=== PATIENT | female | born 1940 | race Caucasian/White ===

== ENCOUNTER 2021-03-22 12:55 | Inpatient (IN) | payer MEDICARE, BC ==
[2021-03-22] MEDS ORDERED: Dexamethasone 10 MG/ML SDV IVPUSH ONE (13:13)
--- NOTE | 2021-03-22 13:13 | EDM.PDOC ---
ED HPI GENERAL MEDICAL PROBLEM - General Chief Complaint: Respiratory Problem Stated Complaint: EMS Time Seen by Provider: 03/22/21 13:00 Source of Information: Reports: Patient History Limitations: Reports: No Limitations - History of Present Illness INITIAL COMMENTS - FREE TEXT/NARRATIVE: Patient is a 81-year-old female history of high blood pressure diabetes and COPD who was diagnosed with Covid about 10 days ago presents today for worsening shortness of breath. With EMS to states she was satting about 74% they placed on a nonrebreather and she is now satting about 97%. Patient she feels better now with oxygen on. She reported before she had a productive white cough body aches but no fevers no chills no nausea vomiting or abdominal pain. - Related Data Allergies Allergy/AdvReac Type Severity Reaction Status Date / Time No Known Allergies Allergy Verified 03/22/21 12:57 Home Meds: Home Meds Insulin Glarg,Human.Rec.Analog [Lantus Solostar] 14 units SQ BEDTIME 11/22/17 [History] Levothyroxine Sodium [Synthroid] 112 mcg PO DAILY 11/22/17 [History] Past Medical History HEENT History: Reports: Hard of Hearing, Impaired Vision Cardiovascular History: Reports: High Cholesterol, Hypertension, Pacemaker Respiratory History: Reports: Sleep Apnea Other Respiratory History: Uses C-PAP Gastrointestinal History: Reports: None Genitourinary History: Reports: None SECURITY TRAINER History: Reports: , Other (See Below) Other SECURITY TRAINER History: Bilateral ovary and fallopian tube removed Musculoskeletal History: Reports: Other (See Below) 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 Neurological History: Reports: None Psychiatric History: Reports: None Endocrine/Metabolic History: Reports: Diabetes, Type II, Hypothyroidism, Other (See Below) Other Endocrine/Metabolic History: Graves Disease Hematologic History: Reports: None Oncologic (Cancer) History: Reports: Ovarian, Other (See Below) Other Oncologic History: Mass removed ovary - Infectious Disease History Infectious Disease History: Reports: None - Past Surgical History Head Surgeries/Procedures: Reports: None GI Surgical History: Reports: Hernia Repair/Other Other GI Surgeries/Procedures: In June, Female Surgical History: Reports: Hysterectomy, Oophorectomy Endocrine Surgical History: Reports: Thyroidectomy Other Endocrine Surgeries/Procedures: Radioactive iodine treatment destroyed the thyroid gland. Oncologic Surgical History: Reports: None Social & Family History - Family History Family Medical History: Unobtainable - Caffeine Use Caffeine Use: Reports: Coffee ED ROS GENERAL - Review of Systems Review Of Systems: See Below Constitutional: Reports: No Symptoms HEENT: Reports: No Symptoms Respiratory: Reports: Shortness of Breath Cardiovascular: Reports: No Symptoms Endocrine: Reports: No Symptoms GI/Abdominal: Reports: No Symptoms : Reports: No Symptoms Musculoskeletal: Reports: No Symptoms Skin: Reports: No Symptoms Neurological: Reports: No Symptoms Psychiatric: Reports: No Symptoms Hematologic/Lymphatic: Reports: No Symptoms Immunologic: Reports: No Symptoms ED EXAM, GENERAL - Physical Exam Exam: See Below Exam Limited By: No Limitations General Appearance: Alert, WD/WN, No Apparent Distress Eye Exam: Bilateral Eye: EOMI Throat/Mouth: Normal Inspection Head: Atraumatic, Normocephalic Neck: Normal Inspection, Supple Respiratory/Chest: No Respiratory Distress, Lungs Clear, Normal Breath Sounds Cardiovascular: Normal Peripheral Pulses, Regular Rate, Rhythm GI/Abdominal: Normal Bowel Sounds, Soft, Non-Tender Extremities: Normal Inspection, Normal Range of Motion Neurological: Alert, Oriented, Normal Cognition, Normal Gait Course - Vital Signs Last Recorded V/S: Last Vital Signs Temp 98.1 F 03/22/21 13:01 Pulse 72 03/22/21 13:01 Resp 20 03/22/21 13:01 BP 167/76 H 03/22/21 13:01 Pulse Ox 99 03/22/21 13:01 - Orders/Labs/Meds Orders: Active Orders 24 hr Category Date Time Status Patient Status [ADT] Routine ADT 03/22/21 14:34 Ordered B-TYPE NATRIURETIC PEPTIDE,BNP [CHEM] Stat Lab 03/22/21 13:32 Received Labs: Laboratory Tests 03/22/21 03/22/21 03/22/21 Range/Units 13:25 13:32 13:32 WBC 11.78 H (4.0-11.0) K/uL RBC 4.38 (4.30-5.90) M/uL Hgb 12.8 (12.0-16.0) g/dL Hct 38.0 (36.0-46.0) % MCV 86.8 (80.0-98.0) fL MCH 29.2 (27.0-32.0) pg MCHC 33.7 (31.0-37.0) g/dL RDW Std Deviation 43.8 (28.0-62.0) fl RDW Coeff of Andree 14 (11.0-15.0) % Plt Count 207 (150-400) K/uL MPV 10.00 (7.40-12.00) fL Neut % (Auto) 83.4 H (48.0-80.0) % Lymph % (Auto) 13.1 L (16.0-40.0) % [place] % (Auto) 3.0 (0.0-15.0) % Eos % (Auto) 0.4 (0.0-7.0) % Baso % (Auto) 0.1 (0.0-1.5) % Neut # (Auto) 9.8 H (1.4-5.7) K/uL Lymph # (Auto) 1.5 (0.6-2.4) K/uL [place] # (Auto) 0.4 (0.0-0.8) K/uL Eos # (Auto) 0.1 (0.0-0.7) K/uL Baso # (Auto) 0.0 (0.0-0.1) K/uL Nucleated RBC % 0.0 /100WBC Nucleated RBCs # 0 K/uL INR APTT (18.6-31.3) SEC Sodium 134 L (136-145) mmol/L Potassium 4.2 (3.5-5.1) mmol/L Chloride 99 (98-107) mmol/L Carbon Dioxide 25.4 (21.0-32.0) mmol/L BUN 21 H (7.0-18.0) mg/dL Creatinine 1.2 H (0.6-1.0) mg/dL Est Cr Clr Drug Dosing 30.03 mL/min Estimated GFR (MDRD) 42.9 ml/min Glucose 259 H (74-106) mg/dL Calcium 8.8 (8.5-10.1) mg/dL Phosphorus 3.2 (2.6-4.7) mg/dL Magnesium 1.8 (1.8-2.4) mg/dL Total Bilirubin 0.4 (0.2-1.0) mg/dL AST 30 (15-37) IU/L ALT 22 (14-63) IU/L Alkaline Phosphatase 112 (46-116) U/L Creatine Kinase 50 (26-308) U/L Troponin I < 0.050 (0.000-0.056) ng/mL Total Protein 7.8 (6.4-8.2) g/dL Albumin 2.5 L (3.4-5.0) g/dL Globulin 5.3 H (2.6-4.0) g/dL Albumin/Globulin Ratio 0.5 L (0.9-1.6) SARS-CoV-2 RNA (DIXON) POSITIVE H (NEGATIVE) 03/22/21 Range/Units 13:32 WBC (4.0-11.0) K/uL RBC (4.30-5.90) M/uL Hgb (12.0-16.0) g/dL Hct (36.0-46.0) % MCV (80.0-98.0) fL MCH (27.0-32.0) pg MCHC (31.0-37.0) g/dL RDW Std Deviation (28.0-62.0) fl RDW Coeff of Andree (11.0-15.0) % Plt Count (150-400) K/uL MPV (7.40-12.00) fL Neut % (Auto) (48.0-80.0) % Lymph % (Auto) (16.0-40.0) % [place] % (Auto) (0.0-15.0) % Eos % (Auto) (0.0-7.0) % Baso % (Auto) (0.0-1.5) % Neut # (Auto) (1.4-5.7) K/uL Lymph # (Auto) (0.6-2.4) K/uL [place] # (Auto) (0.0-0.8) K/uL Eos # (Auto) (0.0-0.7) K/uL Baso # (Auto) (0.0-0.1) K/uL Nucleated RBC % /100WBC Nucleated RBCs # K/uL INR 0.99 APTT 22.9 (18.6-31.3) SEC Sodium (136-145) mmol/L Potassium (3.5-5.1) mmol/L Chloride (98-107) mmol/L Carbon Dioxide (21.0-32.0) mmol/L BUN (7.0-18.0) mg/dL Creatinine (0.6-1.0) mg/dL Est Cr Clr Drug Dosing mL/min Estimated GFR (MDRD) ml/min Glucose (74-106) mg/dL Calcium (8.5-10.1) mg/dL Phosphorus (2.6-4.7) mg/dL Magnesium (1.8-2.4) mg/dL Total Bilirubin (0.2-1.0) mg/dL AST (15-37) IU/L ALT (14-63) IU/L Alkaline Phosphatase (46-116) U/L Creatine Kinase (26-308) U/L Troponin I (0.000-0.056) ng/mL Total Protein (6.4-8.2) g/dL Albumin (3.4-5.0) g/dL Globulin (2.6-4.0) g/dL Albumin/Globulin Ratio (0.9-1.6) SARS-CoV-2 RNA (DIXON) (NEGATIVE) Meds: Medications Discontinued Medications Generic Name Dose Route Start Last Admin Trade Name Freq PRN Reason Stop Dose Admin Dexamethasone 10 mg 03/22/21 13:13 03/22/21 13:41 Dexamethasone 10 Mg/Ml Sdv IVPUSH 03/22/21 13:14 10 mg ONETIME ONE Administration Remdesivir 200 mg/ Sodium 250 mls @ 250 mls/hr 03/22/21 14:32 Chloride IV 03/22/21 14:33 ONETIME ONE - Re-Assessments/Exams Free Text/Narrative Re-Assessment/Exam: 03/22/21 14:35 Patient will be made to the hospital for hypoxia and possible Covid. Patient given Decadron also does appear. Departure - Departure Time of Disposition: 14:35 Disposition: Admitted As Inpatient 64 Condition: Good Clinical Impression: Hypoxia, COVID-19 - Discharge Information *PRESCRIPTION DRUG MONITORING PROGRAM REVIEWED*: Not Applicable *COPY OF PRESCRIPTION DRUG MONITORING REPORT IN PATIENT LUCI: Not Applicable Forms: ED Department Discharge Critical Care Note - Critical Care Note Total Time (mins): 45 Comments: Critical Care Procedure Note Authorized and Performed by: Dr. Mark Total critical care time: Approximately Due to a high probability of clinically significant, life threatening deterioration, the patient required my highest level of preparedness to intervene emergently and I personally spent this critical care time directly and personally managing the patient. This critical care time included obtaining a history; examining the patient; pulse oximetry; ordering and review of studies; arranging urgent treatment with development of a management plan; evaluation of patient's response to treatment; frequent reassessment; and, discussions with other providers. This critical care time was performed to assess and manage the high probability of imminent, life-threatening deterioration that could result in multi-organ failure. It was exclusive of separately billable procedures and treating other patients and teaching time. Sepsis Event Note (ED) - Focused Exam Vital Signs: Vital Signs Temp Pulse Resp BP Pulse Ox 03/22/21 13:01 98.1 F 72 20 167/76 H 99 - My Orders Last 24 Hours: My Active Orders 03/22/21 13:32 B-TYPE NATRIURETIC PEPTIDE,BNP [CHEM] Stat 03/22/21 14:34 Patient Status [ADT] Routine - Assessment/Plan Last 24 Hours: My Active Orders 03/22/21 13:32 B-TYPE NATRIURETIC PEPTIDE,BNP [CHEM] Stat 03/22/21 14:34 Patient Status [ADT] Routine Plan: Patient is a 81-year-old female history of COPD diabetes and high blood pressure who presented today for shortness of breath. Patient was hypoxic to the 70s on room air placed on a nonrebreather now satting in 90s. Patient was diagnosed with Covid. Will obtain labs EKG x-ray and will reassess patient.
--- NOTE | 2021-03-22 14:06 | CR ---
Indication: Cough, shortness of breath Comparison: Two-view chest April 22, 2018 Technique: Single AP view chest Findings: There is hyperinflation and chronic interstitial change. There are increasing interstitial, airspace and ground-glass opacities seen throughout the bilateral hemithoraces commensurate with multifocal infiltrates. The cardiac silhouette is mildly prominent. The bony thorax is grossly intact. Impression: Increasing interstitial, airspace and ground-glass opacities throughout the bilateral hemithoraces commensurate with multifocal infiltrates. Dictated by Chester Jade MD @ 03/22/2021 2:04:59 PM (Electronically Signed)
[2021-03-22 14:22] LABS: BLOOD UREA NITROGEN,BUN 21 mg/dL (7.0-18.0); CARBON DIOXIDE,CO2 25.4 mmol/L (21.0-32.0); CHLORIDE,CL 99 mmol/L (98-107); GLUCOSE RANDOM 259 mg/dL (74-106); POTASSIUM,K 4.2 mmol/L (3.5-5.1); SODIUM,NA 134 mmol/L (136-145)
[2021-03-22] MEDS ORDERED: REMDESIVIR 200 MG in Sodium Chloride 0.9% 250 ML IV ONE (14:32)
[2021-03-22] MEDS ORDERED: Acetaminophen 325 MG Tab PO PRN (14:58)
[2021-03-22] MEDS ORDERED: Glucagon,Human Recombinant 1 MG Vial IM PRN (14:59)
[2021-03-22] MEDS ORDERED: 50% Dextrose in Water 50 ML Syringe IVPUSH PRN (14:59)
[2021-03-22] MEDS ORDERED: Enoxaparin 40 MG/0.4 ML Syringe SUBCUT SCH (15:00)
--- NOTE | 2021-03-22 15:10 | PCM.HP.2 ---
H&P History of Present Illness - General Date of Service: 03/22/21 Admit Problem/Dx: Admission Diagnosis/Problem Admission Diagnosis/Problem Hypoxia - History of Present Illness Initial Comments - Free Text/Narative: 81 yo female with pmh of diabetes, COPD, and hypothyroidism who presents to the ED with one week history of shortness of breath, cough and fevers. She tested positive for COVID on March 11. Her shortness of breath has progressed to where she is short of breath at rest. She has a nonproductive cough. EMS noted she was satting 70% on RA and placed her on a NRB. IN the ED she has been tit rated down to nasal canula. - Related Data Allergies/Adverse Reactions: Allergies Allergy/AdvReac Type Severity Reaction Status Date / Time No Known Allergies Allergy Verified 03/22/21 12:57 Home Medications: Home Meds Insulin Glarg,Human.Rec.Analog [Lantus Solostar] 14 units SQ BEDTIME 11/22/17 [History] Levothyroxine Sodium [Synthroid] 112 mcg PO DAILY 11/22/17 [History] Past Medical History HEENT History: Reports: Hard of Hearing, Impaired Vision Cardiovascular History: Reports: CAD, High Cholesterol, Hypertension, Pacemaker Respiratory History: Reports: COPD, Sleep Apnea Other Respiratory History: Uses C-PAP Gastrointestinal History: Reports: None Genitourinary History: Reports: None SPECIAL EDUCATION ASSOCIATE History: Reports: , Other (See Below) Other OB/BYN History: Bilateral ovary and fallopian tube removed Musculoskeletal History: Reports: Other (See Below) 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 Neurological History: Reports: None Psychiatric History: Reports: None Endocrine/Metabolic History: Reports: Diabetes, Type II, Hypothyroidism, Other ( See Below) Other Endocrine/Metabolic History: Graves Disease Hematologic History: Reports: None Oncologic (Cancer) History: Reports: Ovarian, Other (See Below) Other Oncologic History: Mass removed ovary - Infectious Disease History Infectious Disease History: Reports: None - Past Surgical History Head Surgeries/Procedures: Reports: None GI Surgical History: Reports: Hernia Repair/Other Other GI Surgeries/Procedures: In June, Female Surgical History: Reports: Hysterectomy, Oophorectomy Endocrine Surgical History: Reports: Thyroidectomy Other Endocrine Surgeries/Procedures: Radioactive iodine treatment destroyed the thyroid gland. Oncologic Surgical History: Reports: None Social & Family History - Family History Family Medical History: Unobtainable - Tobacco Use Tobacco Use Status *Q: Never Tobacco User - Caffeine Use Caffeine Use: Reports: Coffee - Recreational Drug Use Recreational Drug Use: No H&P Review of Systems - Review of Systems: Review Of Systems: Comprehensive ROS is negative, except as noted in HPI. Exam - Exam Exam: See Below - Vital Signs Vital Signs: Last Vital Signs Temp 36.7 C 03/22/21 13:01 Pulse 72 03/22/21 13:01 Resp 20 03/22/21 13:01 BP 167/76 H 03/22/21 13:01 Pulse Ox 99 03/22/21 13:01 Weight: 74.843 kg - Exam General: Alert, Oriented HEENT: Mucosa Moist & [place] Neck: Supple Lungs: Clear to Auscultation, Normal Respiratory Effort Cardiovascular: Regular Rate, Regular Rhythm GI/Abdominal Exam: Normal Bowel Sounds, Soft, Non-Tender Extremities: Non-Tender, No Pedal Edema Skin: Warm, Dry, Intact Neurological: Cranial Nerves Intact - Patient Data Lab Results Last 24 hrs: Laboratory Results - last 24 hr 03/22/21 03/22/21 03/22/21 Range/Units 13:25 13:32 13:32 WBC 11.78 H (4.0-11.0) K/uL RBC 4.38 (4.30-5.90) M/uL Hgb 12.8 (12.0-16.0) g/dL Hct 38.0 (36.0-46.0) % MCV 86.8 (80.0-98.0) fL MCH 29.2 (27.0-32.0) pg MCHC 33.7 (31.0-37.0) g/dL RDW Std Deviation 43.8 (28.0-62.0) fl RDW Coeff of Andree 14 (11.0-15.0) % Plt Count 207 (150-400) K/uL MPV 10.00 (7.40-12.00) fL Neut % (Auto) 83.4 H (48.0-80.0) % Lymph % (Auto) 13.1 L (16.0-40.0) % [place] % (Auto) 3.0 (0.0-15.0) % Eos % (Auto) 0.4 (0.0-7.0) % Baso % (Auto) 0.1 (0.0-1.5) % Neut # (Auto) 9.8 H (1.4-5.7) K/uL Lymph # (Auto) 1.5 (0.6-2.4) K/uL [place] # (Auto) 0.4 (0.0-0.8) K/uL Eos # (Auto) 0.1 (0.0-0.7) K/uL Baso # (Auto) 0.0 (0.0-0.1) K/uL Nucleated RBC % 0.0 /100WBC Nucleated RBCs # 0 K/uL INR APTT (18.6-31.3) SEC Sodium 134 L (136-145) mmol/L Potassium 4.2 (3.5-5.1) mmol/L Chloride 99 (98-107) mmol/L Carbon Dioxide 25.4 (21.0-32.0) mmol/L BUN 21 H (7.0-18.0) mg/dL Creatinine 1.2 H (0.6-1.0) mg/dL Est Cr Clr Drug Dosing 30.03 mL/min Estimated GFR (MDRD) 42.9 ml/min Glucose 259 H (74-106) mg/dL Calcium 8.8 (8.5-10.1) mg/dL Phosphorus 3.2 (2.6-4.7) mg/dL Magnesium 1.8 (1.8-2.4) mg/dL Total Bilirubin 0.4 (0.2-1.0) mg/dL AST 30 (15-37) IU/L ALT 22 (14-63) IU/L Alkaline Phosphatase 112 (46-116) U/L Creatine Kinase 50 (26-308) U/L Troponin I < 0.050 (0.000-0.056) ng/mL Total Protein 7.8 (6.4-8.2) g/dL Albumin 2.5 L (3.4-5.0) g/dL Globulin 5.3 H (2.6-4.0) g/dL Albumin/Globulin Ratio 0.5 L (0.9-1.6) SARS-CoV-2 RNA (DIXON) POSITIVE H (NEGATIVE) 03/22/21 Range/Units 13:32 WBC (4.0-11.0) K/uL RBC (4.30-5.90) M/uL Hgb (12.0-16.0) g/dL Hct (36.0-46.0) % MCV (80.0-98.0) fL MCH (27.0-32.0) pg MCHC (31.0-37.0) g/dL RDW Std Deviation (28.0-62.0) fl RDW Coeff of Andree (11.0-15.0) % Plt Count (150-400) K/uL MPV (7.40-12.00) fL Neut % (Auto) (48.0-80.0) % Lymph % (Auto) (16.0-40.0) % [place] % (Auto) (0.0-15.0) % Eos % (Auto) (0.0-7.0) % Baso % (Auto) (0.0-1.5) % Neut # (Auto) (1.4-5.7) K/uL Lymph # (Auto) (0.6-2.4) K/uL Dyer # (Auto) (0.0-0.8) K/uL Eos # (Auto) (0.0-0.7) K/uL Baso # (Auto) (0.0-0.1) K/uL Nucleated RBC % /100WBC Nucleated RBCs # K/uL INR 0.99 APTT 22.9 (18.6-31.3) SEC Sodium (136-145) mmol/L Potassium (3.5-5.1) mmol/L Chloride (98-107) mmol/L Carbon Dioxide (21.0-32.0) mmol/L BUN (7.0-18.0) mg/dL Creatinine (0.6-1.0) mg/dL Est Cr Clr Drug Dosing mL/min Estimated GFR (MDRD) ml/min Glucose (74-106) mg/dL Calcium (8.5-10.1) mg/dL Phosphorus (2.6-4.7) mg/dL Magnesium (1.8-2.4) mg/dL Total Bilirubin (0.2-1.0) mg/dL AST (15-37) IU/L ALT (14-63) IU/L Alkaline Phosphatase (46-116) U/L Creatine Kinase (26-308) U/L Troponin I (0.000-0.056) ng/mL Total Protein (6.4-8.2) g/dL Albumin (3.4-5.0) g/dL Globulin (2.6-4.0) g/dL Albumin/Globulin Ratio (0.9-1.6) SARS-CoV-2 RNA (DIXON) (NEGATIVE) Result Diagrams: 03/22/21 13:32 03/22/21 13:32 Sepsis Event Note - Evaluation Sepsis Screening Result: No Definite Risk - Focused Exam Vital Signs: Vital Signs Temp Pulse Resp BP Pulse Ox 03/22/21 13:01 36.7 C 72 20 167/76 H 99 - Problem List (1) COVID-19 SNOMED Code(s): 552045659 ICD Code: U07.1 - COVID-19 Status: Acute (2) Hypoxia SNOMED Code(s): 679652101 ICD Code: R09.02 - HYPOXEMIA Status: Acute Problem List Initiated/Reviewed/Updated: Yes Orders Last 24hrs: Active Orders 24 hr Category Date Time Status Patient Status [ADT] Routine ADT 03/22/21 14:34 Active Blood Glucose Check, Bedside [RC] TIDAC Care 03/22/21 14:59 Ordered Oxygen Therapy [RC] PRN Care 03/22/21 14:59 Ordered Up ad Lena [RC] ASDIRECTED Care 03/22/21 14:58 Ordered VTE/DVT Education [RC] PER UNIT ROUTINE Care 03/22/21 14:59 Ordered Vital Signs [RC] Q4H Care 03/22/21 14:59 Ordered [place] [employer] Diet [DIET] Diet 03/22/21 Breakfast Ordered Chest PE [Ang Chest] [CT] Stat Exams 03/22/21 14:58 Ordered B-TYPE NATRIURETIC PEPTIDE,BNP [CHEM] Stat Lab 03/22/21 13:32 Received C-REACTIVE PROTEIN [CHEM] Stat Lab 03/22/21 15:04 Ordered CBC WITH AUTO DIFF [HEME] AM Lab 03/23/21 05:11 Ordered COMPREHENSIVE METABOLIC PN,CMP [CHEM] AM Lab 03/23/21 05:11 Ordered PROCALCITONIN [REF] Routine Lab 03/22/21 15:04 Ordered Acetaminophen [TylenoL] Med 03/22/21 14:58 Ordered 650 mg PO Q4H PRN Dextrose 50% in Water Med 03/22/21 14:59 Ordered 50 ml IVPUSH ASDIRECTED PRN Enoxaparin [Lovenox] Med 03/22/21 15:00 Ordered 40 mg SUBCUT Q24H Glucagon,Human Recombinant [GlucaGen] Med 03/22/21 14:59 Ordered 1 mg IM ASDIRECTED PRN Insulin Aspart [NovoLOG] Med 03/22/21 17:00 Ordered See Protocol SUBCUT TIDAC Insulin Glarg,Human.Rec.Analog [LantUS Solostar] Med 03/22/21 21:00 Ordered 6 units SUBCUT BEDTIME Levothyroxine Med 03/23/21 09:00 Ordered 112 mcg PO DAILY Remdesivir 100 mg Med 03/23/21 15:00 Ordered Sodium Chloride 0.9% [Normal Saline AdvBag] 100 ml IV Q24H dexAMETHasone Med 03/23/21 09:00 Ordered 6 mg PO DAILY Resuscitation Status Routine Resus Stat 03/22/21 14:58 Ordered Medication Orders Acetaminophen (Acetaminophen 325 Mg Tab) 650 mg PO Q4H PRN PRN Reason: Pain (Mild 1-3)/fever Dexamethasone (Dexamethasone 4 Mg Tab) 6 mg PO DAILY TEO Dextrose/Water (50% Dextrose In Water 50 Ml Syringe) 50 ml IVPUSH ASDIRECTED PRN PRN Reason: Hypoglycemia Enoxaparin Sodium (Enoxaparin 40 Mg/0.4 Ml Syringe) 40 mg SUBCUT Q24H TEO Glucagon (Glucagon,Human Recombinant 1 Mg Vial) 1 mg IM ASDIRECTED PRN PRN Reason: Hypoglycemia Remdesivir 100 mg/ Sodium (Chloride) 100 mls @ 100 mls/hr IV Q24H TEO Stop: 03/26/21 15:59 Insulin Aspart (Insulin Aspart 100 Units/Ml 3 Ml Pen) 0 unit SUBCUT TIDAC TEO; Protocol Insulin Glargine (Insulin Glargine,Human Rec. Analog 100 Units/Ml 3 Ml Pen) 6 units SUBCUT BEDTIME TEO Levothyroxine Sodium (Levothyroxine 112 Mcg Tab) 112 mcg PO DAILY TEO Assessment/Plan Comment:: 81 yo female admitted for COVID-19 pneumonia with acute respiratory failure hypoxia: on 4 L NC COVID: treating with dexamethasone, and remdesivir lovenox for DVT prophylaxis DM: on lantus and ssi
[2021-03-22] MEDS ORDERED: Azithromycin 500 MG Vial IV SCH (15:15)
--- NOTE | 2021-03-22 16:16 | CT ---
INDICATION: Hypoxic. COVID. Clinical signs symptoms suggesting pulmonary embolus. COMPARISON: No prior transaxial studies. A chest x-ray dated of 04/2020 was reviewed TECHNIQUE: : CT examination of the chest was performed with the uneventful intravenous administration of 100 cc of Isovue 370 while thin axial sections were obtained from above the apices of the lungs to the lung bases. Please note that all CT scans at this facility use dose modulation, iterative reconstruction, and/or weight-based dosing when appropriate to reduce radiation dose to as low as reasonably achievable. FINDINGS: : HEART and MEDIASTINUM: Heart size normal. Moderate mediastinal lymphadenopathy likely reactive. Small amount of pericardial fluid. PULMONARY ARTERIAL CIRCULATION: There is no visible intraluminal filling defect to suggest pulmonary embolus. LUNGS: Moderate to severe diffuse multifocal ground-glass opacification. This is right greater than left with some sparing of the upper lobes. Opacities at the lung bases are probably superimposed atelectasis. The overall appearance is nonspecific but consistent with COVID related lung disease with atelectasis at the bases. Edema or other inflammatory process is possible PLEURAL SPACES: Trace effusions. No pneumothorax VISUALIZED UPPER ABDOMEN: Hepatic steatosis. Otherwise, the limited visualized upper abdominal structures appear normal. OSSEOUS STRUCTURES: Age-appropriate appearance. No acute fracture or destructive process. TUBES and LINES: Pacer with leads in the right atrium and the right ventricle IMPRESSION: 1. There is no indication of pulmonary embolus. 2. Moderate to severe diffuse multifocal ground-glass opacification. Nonspecific but consistent with COVID related lung disease. Trace pleural effusions. 3. Mediastinal lymphadenopathy likely reactive. 4. Pacer with leads in the right atrium and the right ventricle Please note that all CT scans at this facility use dose modulation, iterative reconstruction, and/or weight-based dosing when appropriate to reduce radiation dose to as low as reasonably achievable. Dictated by Lucien Alvarez MD @ 03/22/2021 4:14:39 PM (Electronically Signed)
[2021-03-22] MEDS ORDERED: Iopamidol 755 MG/ML 500 ML Multipack Bottle IVPUSH STA (16:25)
[2021-03-22] MEDS: cefTRIAXone 1 GM in Premix Bag 1 BAG IV SCH (17:07)
[2021-03-22] MEDS: Albuterol/Ipratropium 4 GM Inhalation Spray INH SCH ×2 (17:46→23:53)
[2021-03-22] MEDS: Enoxaparin 40 MG/0.4 ML Syringe SUBCUT SCH (17:56)
[2021-03-22] MEDS: Azithromycin 500 MG in Sodium Chloride 0.9% 250 ML IV SCH (17:57)
[2021-03-22] MEDS: Insulin Aspart 100 Units/ML 3 ML Pen SUBCUT SCH (18:29)
[2021-03-22] MEDS: Diltiazem 120 MG Cap.CD PO SCH (18:37)
[2021-03-22] MEDS ORDERED: Insulin Glargine,Human Rec. Analog 100 Units/ML 3 ML Pen SUBCUT SCH (21:00)
[2021-03-22] MEDS ORDERED: Non-Formulary Medication 1 Each (Sacubitril/Valsartan [Entresto 97 Mg-103 Mg Tablet] 1 EAC PO SCH (21:00)
[2021-03-23] MEDS ORDERED: Insulin Aspart 100 Units/ML 3 ML Pen SUBCUT ONE (00:48)
[2021-03-23] MEDS: Albuterol/Ipratropium 4 GM Inhalation Spray INH SCH ×4 (05:59→23:19)
[2021-03-23] MEDS: Levothyroxine 112 MCG Tab PO SCH (05:59)
[2021-03-23 07:17] LABS: CARBON DIOXIDE,CO2 20.8 mmol/L (21.0-32.0); POTASSIUM,K 4.5 mmol/L (3.5-5.1)
[2021-03-23] MEDS: Diltiazem 120 MG Cap.CD PO SCH (08:34)
[2021-03-23] MEDS: Benzonatate 100 MG Cap PO PRN ×2 (08:34→23:19)
[2021-03-23] MEDS: Dexamethasone 4 MG Tab PO SCH (08:34)
[2021-03-23] MEDS: Insulin Aspart 100 Units/ML 3 ML Pen SUBCUT SCH ×4 (08:36→17:25)
[2021-03-23] MEDS: Insulin Glargine,Human Rec. Analog 100 Units/ML 3 ML Pen SUBCUT SCH ×2 (13:11→20:15)
[2021-03-23] MEDS: cefTRIAXone 1 GM in Premix Bag 1 BAG IV SCH (14:46)
[2021-03-23] MEDS: REMDESIVIR 100 MG in Sodium Chloride 0.9% 100 ML IV SCH (15:21)
--- NOTE | 2021-03-23 15:29 | PCM.PN ---
- General Info Date of Service: 03/23/21 Admission Dx/Problem (Free Text): Pt is still dyspneic with any kind of exertion. She is requiring about 4L oxygen by [place]. She could only do up to 600cc on the incentive spirometer. - Patient Data Vitals - Most Recent: Last Vital Signs Temp 97.7 F 03/23/21 12:00 Pulse 67 03/23/21 12:00 Resp 20 03/23/21 12:00 BP 144/62 H 03/23/21 12:00 Pulse Ox 92 L 03/23/21 12:00 Weight - Most Recent: 165 lb I&O - Last 24 Hours: Intake & Output 03/23/21 03/23/21 03/23/21 06:59 14:59 22:59 Intake Total 750 Output Total 650 Balance 100 Lab Results Last 24 Hours: Laboratory Results - last 24 hr 03/22/21 03/22/21 03/23/21 Range/Units 13:32 17:48 00:43 WBC (4.0-11.0) K/uL RBC (4.30-5.90) M/uL Hgb (12.0-16.0) g/dL Hct (36.0-46.0) % MCV (80.0-98.0) fL MCH (27.0-32.0) pg MCHC (31.0-37.0) g/dL RDW Std Deviation (28.0-62.0) fl RDW Coeff of [place] (11.0-15.0) % Plt Count (150-400) K/uL MPV (7.40-12.00) fL Neut % (Auto) (48.0-80.0) % Lymph % (Auto) (16.0-40.0) % [place] % (Auto) (0.0-15.0) % Eos % (Auto) (0.0-7.0) % Baso % (Auto) (0.0-1.5) % Neut # (Auto) (1.4-5.7) K/uL Lymph # (Auto) (0.6-2.4) K/uL [place] # (Auto) (0.0-0.8) K/uL Eos # (Auto) (0.0-0.7) K/uL Baso # (Auto) (0.0-0.1) K/uL Nucleated RBC % /100WBC Nucleated RBCs # K/uL Sodium (136-145) mmol/L Potassium (3.5-5.1) mmol/L Chloride (98-107) mmol/L Carbon Dioxide (21.0-32.0) mmol/L BUN (7.0-18.0) mg/dL Creatinine (0.6-1.0) mg/dL Est Cr Clr Drug Dosing mL/min Estimated GFR (MDRD) ml/min Glucose (74-106) mg/dL POC Glucose 450 H* 435 H* (70-99) mg/dL Calcium (8.5-10.1) mg/dL Total Bilirubin (0.2-1.0) mg/dL AST (15-37) IU/L ALT (14-63) IU/L Alkaline Phosphatase (46-116) U/L C-Reactive Protein 7.40 H (0.00-0.90) mg/dL Total Protein (6.4-8.2) g/dL Albumin (3.4-5.0) g/dL Globulin (2.6-4.0) g/dL Albumin/Globulin Ratio (0.9-1.6) 03/23/21 03/23/21 03/23/21 Range/Units 03:45 05:49 05:49 WBC 9.52 (4.0-11.0) K/uL RBC 4.36 (4.30-5.90) M/uL Hgb 12.4 (12.0-16.0) g/dL Hct 36.9 (36.0-46.0) % MCV 84.6 (80.0-98.0) fL MCH 28.4 (27.0-32.0) pg MCHC 33.6 (31.0-37.0) g/dL RDW Std Deviation 41.7 (28.0-62.0) fl RDW Coeff of Andree 14 (11.0-15.0) % Plt Count 216 (150-400) K/uL MPV 10.60 (7.40-12.00) fL Neut % (Auto) 84.9 H (48.0-80.0) % Lymph % (Auto) 10.6 L (16.0-40.0) % [place] % (Auto) 4.4 (0.0-15.0) % Eos % (Auto) 0.0 (0.0-7.0) % Baso % (Auto) 0.1 (0.0-1.5) % Neut # (Auto) 8.1 H (1.4-5.7) K/uL Lymph # (Auto) 1.0 (0.6-2.4) K/uL [place] # (Auto) 0.4 (0.0-0.8) K/uL Eos # (Auto) 0.0 (0.0-0.7) K/uL Baso # (Auto) 0.0 (0.0-0.1) K/uL Nucleated RBC % 0.0 /100WBC Nucleated RBCs # 0 K/uL Sodium 134 L (136-145) mmol/L Potassium 4.5 (3.5-5.1) mmol/L Chloride 100 (98-107) mmol/L Carbon Dioxide 20.8 L (21.0-32.0) mmol/L BUN 26 H (7.0-18.0) mg/dL Creatinine 1.0 (0.6-1.0) mg/dL Est Cr Clr Drug Dosing 36.03 mL/min Estimated GFR (MDRD) 53.0 ml/min Glucose 270 H (74-106) mg/dL POC Glucose 350 H (70-99) mg/dL Calcium 8.8 (8.5-10.1) mg/dL Total Bilirubin 0.3 (0.2-1.0) mg/dL AST 28 (15-37) IU/L ALT 20 (14-63) IU/L Alkaline Phosphatase 109 (46-116) U/L C-Reactive Protein (0.00-0.90) mg/dL Total Protein 7.3 (6.4-8.2) g/dL Albumin 2.4 L (3.4-5.0) g/dL Globulin 4.9 H (2.6-4.0) g/dL Albumin/Globulin Ratio 0.5 L (0.9-1.6) 03/23/21 03/23/21 Range/Units 06:26 12:25 WBC (4.0-11.0) K/uL RBC (4.30-5.90) M/uL Hgb (12.0-16.0) g/dL Hct (36.0-46.0) % MCV (80.0-98.0) fL MCH (27.0-32.0) pg MCHC (31.0-37.0) g/dL RDW Std Deviation (28.0-62.0) fl RDW Coeff of Andree (11.0-15.0) % Plt Count (150-400) K/uL MPV (7.40-12.00) fL Neut % (Auto) (48.0-80.0) % Lymph % (Auto) (16.0-40.0) % [place] % (Auto) (0.0-15.0) % Eos % (Auto) (0.0-7.0) % Baso % (Auto) (0.0-1.5) % Neut # (Auto) (1.4-5.7) K/uL Lymph # (Auto) (0.6-2.4) K/uL [place] # (Auto) (0.0-0.8) K/uL Eos # (Auto) (0.0-0.7) K/uL Baso # (Auto) (0.0-0.1) K/uL Nucleated RBC % /100WBC Nucleated RBCs # K/uL Sodium (136-145) mmol/L Potassium (3.5-5.1) mmol/L Chloride (98-107) mmol/L Carbon Dioxide (21.0-32.0) mmol/L BUN (7.0-18.0) mg/dL Creatinine (0.6-1.0) mg/dL Est Cr Clr Drug Dosing mL/min Estimated GFR (MDRD) ml/min Glucose (74-106) mg/dL POC Glucose 244 H 421 H* (70-99) mg/dL Calcium (8.5-10.1) mg/dL Total Bilirubin (0.2-1.0) mg/dL AST (15-37) IU/L ALT (14-63) IU/L Alkaline Phosphatase (46-116) U/L C-Reactive Protein (0.00-0.90) mg/dL Total Protein (6.4-8.2) g/dL Albumin (3.4-5.0) g/dL Globulin (2.6-4.0) g/dL Albumin/Globulin Ratio (0.9-1.6) Med Orders - Current: Current Medications Acetaminophen (Acetaminophen 325 Mg Tab) 650 mg PO Q4H PRN PRN Reason: Pain (Mild 1-3)/fever Albuterol/Ipratropium (Albuterol/Ipratropium 4 Gm Inhalation [place]) 1 gm INH QID [facility] Last Admin: 03/23/21 13:10 Dose: 1 puff Documented by: Benzonatate (Benzonatate 100 Mg Cap) 100 mg PO Q6H PRN PRN Reason: Cough Last Admin: 03/23/21 08:34 Dose: 100 mg Documented by: Dexamethasone (Dexamethasone 4 Mg Tab) 6 mg PO DAILY [facility] Last Admin: 03/23/21 08:34 Dose: 6 mg Documented by: Dextrose/Water (50% Dextrose In Water 50 Ml Syringe) 50 ml IVPUSH ASDIRECTED PRN PRN Reason: Hypoglycemia Diltiazem HCl (Diltiazem 120 Mg Cap.Cd) 120 mg PO DAILY [facility] Last Admin: 03/23/21 08:34 Dose: 120 mg Documented by: Enoxaparin Sodium (Enoxaparin 40 Mg/0.4 Ml Syringe) 40 mg SUBCUT Q24H [facility] Last Admin: 03/22/21 17:56 Dose: 40 mg Documented by: Fluoxetine HCl (Fluoxetine 10 Mg Tab) 10 mg PO DAILY [facility] Last Admin: 03/23/21 08:33 Dose: 10 mg Documented by: Glucagon (Glucagon,Human Recombinant 1 Mg Vial) 1 mg IM ASDIRECTED PRN PRN Reason: Hypoglycemia Remdesivir 100 mg/ Sodium (Chloride) 100 mls @ 100 mls/hr IV Q24H [facility] Stop: 03/26/21 15:59 Last Admin: 03/23/21 15:21 Dose: 100 mls/hr Documented by: Ceftriaxone Sodium/Dextrose 1 (gm/ Premix) 50 mls @ 100 mls/hr IV Q24H [facility] Last Admin: 03/23/21 14:46 Dose: 100 mls/hr Documented by: Azithromycin 500 mg/ Sodium (Chloride) 250 mls @ 250 mls/hr IV Q24H [facility] Last Admin: 03/22/21 17:57 Dose: 250 mls/hr Documented by: Insulin Aspart (Insulin Aspart 100 Units/Ml 3 Ml Pen) 0 unit SUBCUT TIDAC [facility]; Protocol Last Admin: 03/23/21 13:12 Dose: 10 units Documented by: Insulin Glargine (Insulin Glargine,Human Rec. Analog 100 Units/Ml 3 Ml Pen) 10 units SUBCUT BID [facility] Last Admin: 03/23/21 13:11 Dose: 10 units Documented by: Levothyroxine Sodium (Levothyroxine 112 Mcg Tab) 112 mcg PO DAILY@0600 [facility] Last Admin: 03/23/21 05:59 Dose: 112 mcg Documented by: Valsartan (Valsartan 80 Mg Tab) 80 mg PO BID [facility] Last Admin: 03/23/21 08:33 Dose: 80 mg Documented by: Discontinued Medications Dexamethasone (Dexamethasone 10 Mg/Ml Sdv) 10 mg IVPUSH ONETIME ONE Stop: 03/22/21 13:14 Last Admin: 03/22/21 13:41 Dose: 10 mg Documented by: Remdesivir 200 mg/ Sodium (Chloride) 250 mls @ 250 mls/hr IV ONETIME ONE Stop: 03/22/21 14:33 Last Admin: 03/22/21 15:25 Dose: 250 mls/hr Documented by: Insulin Aspart (Insulin Aspart 100 Units/Ml 3 Ml Pen) 0 unit SUBCUT TIDAC [facility]; Protocol Last Admin: 03/23/21 12:37 Dose: Not Given Documented by: Insulin Aspart (Insulin Aspart 100 Units/Ml 3 Ml Pen) 7 unit SUBCUT ONETIME ONE Stop: 03/23/21 00:49 Last Admin: 03/23/21 01:15 Dose: 7 units Documented by: Insulin Glargine (Insulin Glargine,Human Rec. Analog 100 Units/Ml 3 Ml Pen) 6 units SUBCUT BEDTIME [facility] Last Admin: 03/22/21 20:27 Dose: 6 units Documented by: Iopamidol (Iopamidol 755 Mg/Ml 500 Ml Multipack Bottle) 100 ml IVPUSH ONETIME STA Stop: 03/22/21 16:26 Last Admin: 03/22/21 16:26 Dose: 100 ml Documented by: Non-Formulary Medication (Sacubitril/Valsartan [Entresto 97 Mg-103 Mg Tablet]) 97 - 103 mg PO BID [facility] Last Admin: 03/23/21 00:53 Dose: Not Given Documented by: - Exam Physical Findings Comments:: General: Alert, Oriented HEENT: Mucosa Moist & [place] Lungs: Clear to Auscultation, Normal Respiratory Effort Cardiovascular: Regular Rate, Regular Rhythm GI: Obese, soft, non tender. bowel sound present Extremities: Non-Tender, No Pedal Edema Skin: Warm, Dry, Intact Neurological: No: Cranial Nerves Intact - Patient Data Lab Results Last 24 hrs: Laboratory Results - last 24 hr 03/22/21 03/22/21 03/23/21 Range/Units 13:32 17:48 00:43 WBC (4.0-11.0) K/uL RBC (4.30-5.90) M/uL Hgb (12.0-16.0) g/dL Hct (36.0-46.0) % MCV (80.0-98.0) fL MCH (27.0-32.0) pg MCHC (31.0-37.0) g/dL RDW Std Deviation (28.0-62.0) fl RDW Coeff of [place]ree (11.0-15.0) % Plt Count (150-400) K/uL MPV (7.40-12.00) fL Neut % (Auto) (48.0-80.0) % Lymph % (Auto) (16.0-40.0) % [place] % (Auto) (0.0-15.0) % Eos % (Auto) (0.0-7.0) % Baso % (Auto) (0.0-1.5) % Neut # (Auto) (1.4-5.7) K/uL Lymph # (Auto) (0.6-2.4) K/uL [place] # (Auto) (0.0-0.8) K/uL Eos # (Auto) (0.0-0.7) K/uL Baso # (Auto) (0.0-0.1) K/uL Nucleated RBC % /100WBC Nucleated RBCs # K/uL Sodium (136-145) mmol/L Potassium (3.5-5.1) mmol/L Chloride (98-107) mmol/L Carbon Dioxide (21.0-32.0) mmol/L BUN (7.0-18.0) mg/dL Creatinine (0.6-1.0) mg/dL Est Cr Clr Drug Dosing mL/min Estimated GFR (MDRD) ml/min Glucose (74-106) mg/dL POC Glucose 450 H* 435 H* (70-99) mg/dL Calcium (8.5-10.1) mg/dL Total Bilirubin (0.2-1.0) mg/dL AST (15-37) IU/L ALT (14-63) IU/L Alkaline Phosphatase (46-116) U/L C-Reactive Protein 7.40 H (0.00-0.90) mg/dL Total Protein (6.4-8.2) g/dL Albumin (3.4-5.0) g/dL Globulin (2.6-4.0) g/dL Albumin/Globulin Ratio (0.9-1.6) 03/23/21 03/23/21 03/23/21 Range/Units 03:45 05:49 05:49 WBC 9.52 (4.0-11.0) K/uL RBC 4.36 (4.30-5.90) M/uL Hgb 12.4 (12.0-16.0) g/dL Hct 36.9 (36.0-46.0) % MCV 84.6 (80.0-98.0) fL MCH 28.4 (27.0-32.0) pg MCHC 33.6 (31.0-37.0) g/dL RDW Std Deviation 41.7 (28.0-62.0) fl RDW Coeff of [place] 14 (11.0-15.0) % Plt Count 216 (150-400) K/uL MPV 10.60 (7.40-12.00) fL Neut % (Auto) 84.9 H (48.0-80.0) % Lymph % (Auto) 10.6 L (16.0-40.0) % [place] % (Auto) 4.4 (0.0-15.0) % Eos % (Auto) 0.0 (0.0-7.0) % Baso % (Auto) 0.1 (0.0-1.5) % Neut # (Auto) 8.1 H (1.4-5.7) K/uL Lymph # (Auto) 1.0 (0.6-2.4) K/uL [place] # (Auto) 0.4 (0.0-0.8) K/uL Eos # (Auto) 0.0 (0.0-0.7) K/uL Baso # (Auto) 0.0 (0.0-0.1) K/uL Nucleated RBC % 0.0 /100WBC Nucleated RBCs # 0 K/uL Sodium 134 L (136-145) mmol/L Potassium 4.5 (3.5-5.1) mmol/L Chloride 100 (98-107) mmol/L Carbon Dioxide 20.8 L (21.0-32.0) mmol/L BUN 26 H (7.0-18.0) mg/dL Creatinine 1.0 (0.6-1.0) mg/dL Est Cr Clr Drug Dosing 36.03 mL/min Estimated GFR (MDRD) 53.0 ml/min Glucose 270 H (74-106) mg/dL POC Glucose 350 H (70-99) mg/dL Calcium 8.8 (8.5-10.1) mg/dL Total Bilirubin 0.3 (0.2-1.0) mg/dL AST 28 (15-37) IU/L ALT 20 (14-63) IU/L Alkaline Phosphatase 109 (46-116) U/L C-Reactive Protein (0.00-0.90) mg/dL Total Protein 7.3 (6.4-8.2) g/dL Albumin 2.4 L (3.4-5.0) g/dL Globulin 4.9 H (2.6-4.0) g/dL Albumin/Globulin Ratio 0.5 L (0.9-1.6) 03/23/21 03/23/21 Range/Units 06:26 12:25 WBC (4.0-11.0) K/uL RBC (4.30-5.90) M/uL Hgb (12.0-16.0) g/dL Hct (36.0-46.0) % MCV (80.0-98.0) fL MCH (27.0-32.0) pg MCHC (31.0-37.0) g/dL RDW Std Deviation (28.0-62.0) fl RDW Coeff of [place] (11.0-15.0) % Plt Count (150-400) K/uL MPV (7.40-12.00) fL Neut % (Auto) (48.0-80.0) % Lymph % (Auto) (16.0-40.0) % [place] % (Auto) (0.0-15.0) % Eos % (Auto) (0.0-7.0) % Baso % (Auto) (0.0-1.5) % Neut # (Auto) (1.4-5.7) K/uL Lymph # (Auto) (0.6-2.4) K/uL [place] # (Auto) (0.0-0.8) K/uL Eos # (Auto) (0.0-0.7) K/uL Baso # (Auto) (0.0-0.1) K/uL Nucleated RBC % /100WBC Nucleated RBCs # K/uL Sodium (136-145) mmol/L Potassium (3.5-5.1) mmol/L Chloride (98-107) mmol/L Carbon Dioxide (21.0-32.0) mmol/L BUN (7.0-18.0) mg/dL Creatinine (0.6-1.0) mg/dL Est Cr Clr Drug Dosing mL/min Estimated GFR (MDRD) ml/min Glucose (74-106) mg/dL POC Glucose 244 H 421 H* (70-99) mg/dL Calcium (8.5-10.1) mg/dL Total Bilirubin (0.2-1.0) mg/dL AST (15-37) IU/L ALT (14-63) IU/L Alkaline Phosphatase (46-116) U/L C-Reactive Protein (0.00-0.90) mg/dL Total Protein (6.4-8.2) g/dL Albumin (3.4-5.0) g/dL Globulin (2.6-4.0) g/dL Albumin/Globulin Ratio (0.9-1.6) Result Diagrams: 03/23/21 05:49 03/23/21 05:49 Sepsis Event Note - Evaluation Sepsis Screening Result: No Definite Risk - Focused Exam Vital Signs: Vital Signs Temp Pulse Pulse Resp BP BP Pulse Ox 03/23/21 12:00 97.7 F 67 20 144/62 H 92 L 03/23/21 08:34 64 155/75 H 03/23/21 08:33 155/75 H 03/23/21 07:00 97.6 F 64 18 155/75 H 90 L 03/23/21 03:29 97.7 F 78 24 H 157/78 H 92 L - Problem List & Annotations (1) Acute hypoxemic respiratory failure due to COVID-19 SNOMED Code(s): 210434294 Code(s): U07.1 - COVID-19; J96.01 - ACUTE RESPIRATORY FAILURE WITH HYPOXIA Status: Acute Current Visit: Yes (2) COVID-19 SNOMED Code(s): 227726699 Code(s): U07.1 - COVID-19 Status: Acute Current Visit: No (3) Overweight (BMI 25.0-29.9) SNOMED Code(s): 379820176 Code(s): E66.3 - OVERWEIGHT Status: Acute Current Visit: Yes - Problem List Review Problem List Initiated/Reviewed/Updated: Yes - My Orders Last 24 Hours: My Active Orders 03/23/21 11:13 Consult to Physical Therapy [PT Evaluation and Treatment] [CONS] Routine 03/23/21 12:34 Insulin Aspart [NovoLOG] See Protocol SUBCUT TIDAC 03/23/21 12:45 Insulin Glarg,Human.Rec.Analog [LantUS Solostar] 10 units SUBCUT BID - Assessment Assessment:: 81 yo female admitted with acute hypoxemic respiratory failure due to COVID-19 pneumonia Pt is on 4 L NC Continue with incentive spirometry Proning as tolerated COVID 19 infection : treating with dexamethasone, remdesivir and antico agulation. [place] home CPAP Q HS DVT prophylaxis SQ lovenox. T2DM: on lantus and ssi Full code status.
[2021-03-23] MEDS: Enoxaparin 40 MG/0.4 ML Syringe SUBCUT SCH (18:38)
[2021-03-23] MEDS: Azithromycin 500 MG in Sodium Chloride 0.9% 250 ML IV SCH (18:38)
[2021-03-24] MEDS: Levothyroxine 112 MCG Tab PO SCH (06:42)
[2021-03-24] MEDS: Albuterol/Ipratropium 4 GM Inhalation Spray INH SCH ×4 (06:42→23:39)
[2021-03-24] MEDS: Dexamethasone 4 MG Tab PO SCH (08:55)
[2021-03-24] MEDS: Diltiazem 120 MG Cap.CD PO SCH (08:56)
[2021-03-24] MEDS: Insulin Aspart 100 Units/ML 3 ML Pen SUBCUT SCH ×4 (09:00→20:54)
[2021-03-24] MEDS: Insulin Glargine,Human Rec. Analog 100 Units/ML 3 ML Pen SUBCUT SCH ×2 (09:06→20:52)
[2021-03-24] MEDS: Benzonatate 100 MG Cap PO PRN ×3 (09:33→23:34)
[2021-03-24] MEDS ORDERED: LORazepam 0.5 MG Tab PO PRN (13:09)
--- NOTE | 2021-03-24 13:24 | PCM.PN ---
- General Info Date of Service: 03/24/21 Admission Dx/Problem (Free Text): Pt is worse today. She feels more winded and easily run out of breath with any kind of exertion. She is not requiring 10 L oxygen as opposed to 4 L NC yesterday. - Patient Data Vitals - Most Recent: Last Vital Signs Temp 98.2 F 03/24/21 12:25 Pulse 81 03/24/21 10:50 Resp 20 03/24/21 12:25 BP 165/75 H 03/24/21 12:25 Pulse Ox 91 L 03/24/21 12:25 Weight - Most Recent: 165 lb I&O - Last 24 Hours: Intake & Output 03/23/21 03/24/21 03/24/21 22:59 06:59 14:59 Intake Total 870 990 Output Total 500 800 Balance 370 190 Lab Results Last 24 Hours: Laboratory Results - last 24 hr 03/22/21 03/23/21 03/23/21 Range/Units 15:28 05:49 17:22 POC Glucose 375 H (70-99) mg/dL C-Reactive Protein 11.70 H (0.00-0.90) mg/dL Procalcitonin 0.05 ng/mL 03/24/21 03/24/21 Range/Units 06:21 08:44 POC Glucose 280 H 262 H (70-99) mg/dL C-Reactive Protein (0.00-0.90) mg/dL Procalcitonin ng/mL Med Orders - Current: Current Medications Acetaminophen (Acetaminophen 325 Mg Tab) 650 mg PO Q4H PRN PRN Reason: Pain (Mild 1-3)/fever Albuterol/Ipratropium (Albuterol/Ipratropium 4 Gm Inhalation [place]) 1 gm INH QID [facility] Last Admin: 03/24/21 13:01 Dose: 1 puff Documented by: Baricitinib (Baricitinib 2 Mg Tab) 4 mg PO Q24H [facility] Last Admin: 03/24/21 13:07 Dose: 4 mg Documented by: Benzonatate (Benzonatate 100 Mg Cap) 100 mg PO Q6H PRN PRN Reason: Cough Last Admin: 03/24/21 09:33 Dose: 100 mg Documented by: Dexamethasone (Dexamethasone 4 Mg Tab) 6 mg PO DAILY [facility] Last Admin: 03/24/21 08:55 Dose: 6 mg Documented by: Dextrose/Water (50% Dextrose In Water 50 Ml Syringe) 50 ml IVPUSH ASDIRECTED PRN PRN Reason: Hypoglycemia Diltiazem HCl (Diltiazem 120 Mg Cap.Cd) 120 mg PO DAILY [facility] Last Admin: 03/24/21 08:56 Dose: 120 mg Documented by: Enoxaparin Sodium (Enoxaparin 40 Mg/0.4 Ml Syringe) 40 mg SUBCUT Q24H [facility] Last Admin: 03/23/21 18:38 Dose: 40 mg Documented by: Fluoxetine HCl (Fluoxetine 10 Mg Tab) 10 mg PO DAILY [facility] Last Admin: 03/24/21 08:58 Dose: 10 mg Documented by: Furosemide (Furosemide 20 Mg Tab) 20 mg PO DAILY [facility] Glucagon (Glucagon,Human Recombinant 1 Mg Vial) 1 mg IM ASDIRECTED PRN PRN Reason: Hypoglycemia Remdesivir 100 mg/ Sodium (Chloride) 100 mls @ 100 mls/hr IV Q24H [facility] Stop: 03/26/21 15:59 Last Admin: 03/23/21 15:21 Dose: 100 mls/hr Documented by: Ceftriaxone Sodium/Dextrose 1 (gm/ Premix) 50 mls @ 100 mls/hr IV Q24H [facility] Last Admin: 03/23/21 14:46 Dose: 100 mls/hr Documented by: Azithromycin 500 mg/ Sodium (Chloride) 250 mls @ 250 mls/hr IV Q24H [facility] Last Admin: 03/23/21 18:38 Dose: 250 mls/hr Documented by: Insulin Aspart (Insulin Aspart 100 Units/Ml 3 Ml Pen) 0 unit SUBCUT TIDAC [facility]; Protocol Last Admin: 03/24/21 09:00 Dose: 6 units Documented by: Insulin Glargine (Insulin Glargine,Human Rec. Analog 100 Units/Ml 3 Ml Pen) 10 units SUBCUT BID [facility] Last Admin: 03/24/21 09:06 Dose: 10 units Documented by: Levothyroxine Sodium (Levothyroxine 112 Mcg Tab) 112 mcg PO DAILY@0600 [facility] Last Admin: 03/24/21 06:42 Dose: 112 mcg Documented by: Lorazepam (Lorazepam 0.5 Mg Tab) 0.5 mg PO Q4H PRN PRN Reason: Anxiety Valsartan (Valsartan 80 Mg Tab) 80 mg PO BID [facility] Last Admin: 03/24/21 08:58 Dose: 80 mg Documented by: Discontinued Medications Dexamethasone (Dexamethasone 10 Mg/Ml Sdv) 10 mg IVPUSH ONETIME ONE Stop: 03/22/21 13:14 Last Admin: 03/22/21 13:41 Dose: 10 mg Documented by: Remdesivir 200 mg/ Sodium (Chloride) 250 mls @ 250 mls/hr IV ONETIME ONE Stop: 03/22/21 14:33 Last Admin: 03/22/21 15:25 Dose: 250 mls/hr Documented by: Insulin Aspart (Insulin Aspart 100 Units/Ml 3 Ml Pen) 0 unit SUBCUT TIDAC [facility]; Protocol Last Admin: 03/23/21 12:37 Dose: Not Given Documented by: Insulin Aspart (Insulin Aspart 100 Units/Ml 3 Ml Pen) 7 unit SUBCUT ONETIME ONE Stop: 03/23/21 00:49 Last Admin: 03/23/21 01:15 Dose: 7 units Documented by: Insulin Glargine (Insulin Glargine,Human Rec. Analog 100 Units/Ml 3 Ml Pen) 6 units SUBCUT BEDTIME [facility] Last Admin: 03/22/21 20:27 Dose: 6 units Documented by: Iopamidol (Iopamidol 755 Mg/Ml 500 Ml Multipack Bottle) 100 ml IVPUSH ONETIME STA Stop: 03/22/21 16:26 Last Admin: 03/22/21 16:26 Dose: 100 ml Documented by: Non-Formulary Medication (Sacubitril/Valsartan [Entresto 97 Mg-103 Mg Tablet]) 97 - 103 mg PO BID [facility] Last Admin: 03/23/21 00:53 Dose: Not Given Documented by: - Exam Physical Findings Comments:: General: Alert, Oriented. Dyspneic. Lungs: Clear to Auscultation, Normal Respiratory Effort Cardiovascular: Regular Rate, Regular Rhythm GI: Obese, soft, non tender. bowel sound present Extremities: Non-Tender, No Pedal Edema Skin: Warm, Dry, Intact Neurological: No: Cranial Nerves Intact - Patient Data Lab Results Last 24 hrs: Laboratory Results - last 24 hr 03/22/21 03/23/21 03/23/21 Range/Units 15:28 05:49 17:22 POC Glucose 375 H (70-99) mg/dL C-Reactive Protein 11.70 H (0.00-0.90) mg/dL Procalcitonin 0.05 ng/mL 03/24/21 03/24/21 Range/Units 06:21 08:44 POC Glucose 280 H 262 H (70-99) mg/dL C-Reactive Protein (0.00-0.90) mg/dL Procalcitonin ng/mL Result Diagrams: 03/23/21 05:49 03/23/21 05:49 Sepsis Event Note - Evaluation Sepsis Screening Result: No Definite Risk - Focused Exam Vital Signs: Vital Signs Temp Pulse Pulse Resp BP BP Pulse Ox 03/24/21 12:25 98.2 F 20 165/75 H 91 L 03/24/21 10:50 98.2 F 81 20 164/72 H 97 03/24/21 09:06 72 96 03/24/21 08:58 157/71 H 03/24/21 08:56 76 157/71 H 03/24/21 08:00 97.6 F 82 21 H 157/71 H 87 L 03/24/21 03:22 97.3 F 81 20 139/71 88 L - Problem List & Annotations (1) Acute hypoxemic respiratory failure due to COVID-19 SNOMED Code(s): 307086996 Code(s): U07.1 - COVID-19; J96.01 - ACUTE RESPIRATORY FAILURE WITH HYPOXIA Status: Acute Current Visit: Yes (2) COVID-19 SNOMED Code(s): 415073118 Code(s): U07.1 - COVID-19 Status: Acute Current Visit: No (3) Overweight (BMI 25.0-29.9) SNOMED Code(s): 003089069 Code(s): E66.3 - OVERWEIGHT Status: Acute Current Visit: Yes (4) CAP (community acquired pneumonia) SNOMED Code(s): 704506008 Code(s): J18.9 - PNEUMONIA, UNSPECIFIED ORGANISM Status: Acute Current Visit: No Qualifiers: Laterality: right Lung location: lower lobe of lung (5) Acute hypoxemic respiratory failure due to COVID-19 SNOMED Code(s): 996805214 Code(s): U07.1 - COVID-19; J96.01 - ACUTE RESPIRATORY FAILURE WITH HYPOXIA Status: Acute Current Visit: Yes (6) Pulmonary hypertension SNOMED Code(s): 54049581 Code(s): I27.20 - PULMONARY HYPERTENSION, UNSPECIFIED Status: Acute Current Visit: Yes (7) Full code status SNOMED Code(s): 582982415 Code(s): Z78.9 - OTHER SPECIFIED HEALTH STATUS Status: Acute Current Visit: Yes (8) Pneumonia due to COVID-19 virus SNOMED Code(s): 141180649416047052 Code(s): U07.1 - COVID-19; J12.82 - PNEUMONIA DUE TO CORONAVIRUS DISEASE 2019 Status: Acute Current Visit: Yes - Problem List Review Problem List Initiated/Reviewed/Updated: Yes - My Orders Last 24 Hours: My Active Orders 03/23/21 12:34 Insulin Aspart [NovoLOG] See Protocol SUBCUT TIDAC 03/23/21 12:45 Insulin Glarg,Human.Rec.Analog [LantUS Solostar] 10 units SUBCUT BID 03/24/21 11:10 Transfer Patient (Change bed) [ADT] Routine 03/24/21 13:00 Baricitinib [Olumiant] 4 mg PO Q24H 03/24/21 13:09 LORazepam [Ativan] 0.5 mg PO Q4H PRN 03/24/21 13:30 Furosemide [Lasix] 20 mg PO DAILY - Assessment Assessment:: 81 yo female admitted with acute hypoxemic respiratory failure due to COVID-19 pneumonia Pt is now on 10 L NC from 4 L NC yesterday. She is also getting weaker. Transfer to the ICU. Pt may require HFNC and intermittent bipap. Continue with incentive spirometry Strongly encourage proning. COVID 19 infection : treating with dexamethasone, remdesivir and anticoagulation. DAMION home CPAP Q HS. Will likely do bipap while asleep. DVT prophylaxis SQ lovenox. T2DM: on lantus and ssi. BG still elevated. Will increase basal insulin dose. Full code status. - Plan Plan:: 81 yo female admitted for COVID-19 pneumonia with acute respiratory failure hypoxia: on 4 L NC COVID: treating with dexamethasone, and remdesivir lovenox for DVT prophylaxis DM: on lantus and ssi
[2021-03-24] MEDS: Furosemide 20 MG Tab PO SCH (13:32)
--- NOTE | 2021-03-24 14:39 | PN ---
THC Physician - Brief Progress [id number]/03/2021 14:16[facility] Afsaneh Max, [place] - [facility] - MWN CHAYA TAYLOR, COVID+Date of Service 03/24/2021 14:16H PI/Events of Note eICU Admission NotePt is a 81 yo F admitted on 03/22 with worsening JOHANNA. PMH include s COPD, Hypothyroidism and DM II. She was originally diagnosed with COVID on 03/11 and has had increa sing dyspnea, then subsequent O2 needs despite Dexamethasone and Remdesivir initiated upon admission. She was on 4 L NC yesterday and is now on 10 L via [place]. She is resting comfortably with a RR of 2 2 and stable VS. Case was discussed with her nurse Marsha.eICU Recommendations:1) Wean O2 to a goal S pO2 of 88-92% 2) Continue all appropriate and available COVID therapies already initiated3) Encourage self proning 4) Nutritional intake as able5) BG management on steroids6) GI/DVT prophylaxisThank you for allowing us to participate in the care of your patient.Interventions Major-Hyperglycemia - activ e titration of insulin therapy, Hypoxemia - evaluation and management, Infection - evaluation and man [id number]-[id number] therapies (e.g. VTE, beta sherri, etc.), Communication with other healthcare providers and/or family
[2021-03-24] MEDS: REMDESIVIR 100 MG in Sodium Chloride 0.9% 100 ML IV SCH (15:12)
[2021-03-24] MEDS: cefTRIAXone 1 GM in Premix Bag 1 BAG IV SCH (16:24)
[2021-03-24] MEDS: Azithromycin 500 MG in Sodium Chloride 0.9% 250 ML IV SCH (18:10)
[2021-03-24] MEDS: Enoxaparin 40 MG/0.4 ML Syringe SUBCUT SCH (18:11)
--- NOTE | 2021-03-24 18:33 | PN ---
THC Physician - Brief Progress [id number]/03/2021 18:24[facility] Afsaneh Max, [place] - CARMELA ([place]) - CHAYA LYLE COVID+Date of Service 03/24/2021 18:24H PI/Events of Note Pt's BGs have been elevated. She is currently on Lantus 10 Q 12 hours and the mediu m dose SSI with BGs in the 300-400 range. Will increase her Lantus to 14 units Q 12 and change her SS I to the high scale while she is on high dose steroids. Case was discussed with her nurse Marsha.Inte rventions Major-Hyperglycemia - active titration of insulin therapyIntermediate-Communication with ot her healthcare providers and/or family, Medication change / dose adjustment
[2021-03-24] MEDS ORDERED: Insulin Glargine,Human Rec. Analog 100 Units/ML 3 ML Pen SUBCUT SCH (21:00)
[2021-03-25 07:32] LABS: CARBON DIOXIDE,CO2 24.9 mmol/L (21.0-32.0); POTASSIUM,K 4.6 mmol/L (3.5-5.1)
[2021-03-25] MEDS: Insulin Aspart 100 Units/ML 3 ML Pen SUBCUT SCH ×4 (10:15→22:03)
[2021-03-25] MEDS: Albuterol/Ipratropium 4 GM Inhalation Spray INH SCH ×3 (10:15→17:58)
[2021-03-25] MEDS: Diltiazem 120 MG Cap.CD PO SCH (10:16)
[2021-03-25] MEDS: Furosemide 20 MG Tab PO SCH (10:16)
[2021-03-25] MEDS: Dexamethasone 4 MG Tab PO SCH (10:16)
[2021-03-25] MEDS ORDERED: SILDENAFIL 20 MG PO SCH (11:15)
[2021-03-25] MEDS: Insulin Glargine,Human Rec. Analog 100 Units/ML 3 ML Pen SUBCUT SCH ×2 (11:55→22:05)
--- NOTE | 2021-03-25 12:54 | PCM.PN ---
- General Info Date of Service: 03/25/21 Subjective Update: The patient is a 81-year-old female, on day 4 of service, who has a significant past medical history of coronary artery disease, pacemaker placement, hyperlipidemia, chronic obstructive pulmonary disease, hypothyroidism, and diabetes mellitus type 2, who is currently in the intensive care unit for acute respiratory failure secondary to COVID-19 pneumonia. Upon interview with the patient today she continues to have shortness of breath and cough productive of clear sputum devoid of any mucus or blood. She does admit to feeling fatigued and has been sleeping much of the day. Her blood pressure was elevated on multiple accounts but fluctuates and goes into the highnormal range. She is currently saturating 94% on 6 L of oxygen. She was on home sildenafil and will have it resumed here at the hospital today. She denies chest pain, palpitations, nausea, vomiting, and any issues with urination and/or defecation. She has no other health concerns at this time. - Review of Systems General: Reports: Fatigue. Denies: Fever, Weakness HEENT: Denies: Headaches, Sore Throat Pulmonary: Reports: Shortness of Breath, Cough, Sputum Cardiovascular: Denies: Chest Pain, Palpitations Gastrointestinal: Denies: Abdominal Pain Genitourinary: Denies: Dysuria - Patient Data Vitals - Most Recent: Last Vital Signs Temp 97 F 03/25/21 08:00 Pulse 63 03/25/21 10:16 Resp 15 03/25/21 10:00 BP 174/72 H 03/25/21 10:17 Pulse Ox 95 03/25/21 10:00 Weight - Most Recent: 173 lb 11.588 oz I&O - Last 24 Hours: Intake & Output 03/24/21 03/25/21 03/25/21 22:59 06:59 14:59 Intake Total 990 350 Output Total 600 1150 Balance 390 -800 Lab Results Last 24 Hours: Laboratory Results - last 24 hr 03/24/21 03/24/21 03/24/21 Range/Units 13:19 13:44 18:18 WBC (4.0-11.0) K/uL RBC (4.30-5.90) M/uL Hgb (12.0-16.0) g/dL Hct (36.0-46.0) % MCV (80.0-98.0) fL MCH (27.0-32.0) pg MCHC (31.0-37.0) g/dL RDW Std Deviation (28.0-62.0) fl RDW Coeff of Andree (11.0-15.0) % Plt Count (150-400) K/uL MPV (7.40-12.00) fL Neut % (Auto) (48.0-80.0) % Lymph % (Auto) (16.0-40.0) % Kane % (Auto) (0.0-15.0) % Eos % (Auto) (0.0-7.0) % Baso % (Auto) (0.0-1.5) % Neut # (Auto) (1.4-5.7) K/uL Lymph # (Auto) (0.6-2.4) K/uL Kane # (Auto) (0.0-0.8) K/uL Eos # (Auto) (0.0-0.7) K/uL Baso # (Auto) (0.0-0.1) K/uL Nucleated RBC % /100WBC Nucleated RBCs # K/uL D-Dimer, Quantitative 5.16 H (0.0-0.50) mg/L FEU Sodium (136-145) mmol/L Potassium (3.5-5.1) mmol/L Chloride (98-107) mmol/L Carbon Dioxide (21.0-32.0) mmol/L BUN (7.0-18.0) mg/dL Creatinine (0.6-1.0) mg/dL Est Cr Clr Drug Dosing mL/min Estimated GFR (MDRD) ml/min Glucose (74-106) mg/dL POC Glucose 198 H 403 H* (70-99) mg/dL Calcium (8.5-10.1) mg/dL Magnesium (1.8-2.4) mg/dL 03/24/21 03/25/21 03/25/21 Range/Units 20:30 06:43 06:44 WBC 12.21 H (4.0-11.0) K/uL RBC 4.22 L (4.30-5.90) M/uL Hgb 12.1 (12.0-16.0) g/dL Hct 36.0 (36.0-46.0) % MCV 85.3 (80.0-98.0) fL MCH 28.7 (27.0-32.0) pg MCHC 33.6 (31.0-37.0) g/dL RDW Std Deviation 42.3 (28.0-62.0) fl RDW Coeff of Andree 14 (11.0-15.0) % Plt Count 240 (150-400) K/uL MPV 10.20 (7.40-12.00) fL Neut % (Auto) 84.6 H (48.0-80.0) % Lymph % (Auto) 10.9 L (16.0-40.0) % Kane % (Auto) 4.4 (0.0-15.0) % Eos % (Auto) 0.0 (0.0-7.0) % Baso % (Auto) 0.1 (0.0-1.5) % Neut # (Auto) 10.3 H (1.4-5.7) K/uL Lymph # (Auto) 1.3 (0.6-2.4) K/uL Kane # (Auto) 0.5 (0.0-0.8) K/uL Eos # (Auto) 0.0 (0.0-0.7) K/uL Baso # (Auto) 0.0 (0.0-0.1) K/uL Nucleated RBC % 0.0 /100WBC Nucleated RBCs # 0 K/uL D-Dimer, Quantitative (0.0-0.50) mg/L FEU Sodium (136-145) mmol/L Potassium (3.5-5.1) mmol/L Chloride (98-107) mmol/L Carbon Dioxide (21.0-32.0) mmol/L BUN (7.0-18.0) mg/dL Creatinine (0.6-1.0) mg/dL Est Cr Clr Drug Dosing mL/min Estimated GFR (MDRD) ml/min Glucose (74-106) mg/dL POC Glucose 461 H* 150 H (70-99) mg/dL Calcium (8.5-10.1) mg/dL Magnesium (1.8-2.4) mg/dL 03/25/21 03/25/21 Range/Units 06:44 11:40 WBC (4.0-11.0) K/uL RBC (4.30-5.90) M/uL Hgb (12.0-16.0) g/dL Hct (36.0-46.0) % MCV (80.0-98.0) fL MCH (27.0-32.0) pg MCHC (31.0-37.0) g/dL RDW Std Deviation (28.0-62.0) fl RDW Coeff of Andree (11.0-15.0) % Plt Count (150-400) K/uL MPV (7.40-12.00) fL Neut % (Auto) (48.0-80.0) % Lymph % (Auto) (16.0-40.0) % Kane % (Auto) (0.0-15.0) % Eos % (Auto) (0.0-7.0) % Baso % (Auto) (0.0-1.5) % Neut # (Auto) (1.4-5.7) K/uL Lymph # (Auto) (0.6-2.4) K/uL Kane # (Auto) (0.0-0.8) K/uL Eos # (Auto) (0.0-0.7) K/uL Baso # (Auto) (0.0-0.1) K/uL Nucleated RBC % /100WBC Nucleated RBCs # K/uL D-Dimer, Quantitative (0.0-0.50) mg/L FEU Sodium 139 (136-145) mmol/L Potassium 4.6 (3.5-5.1) mmol/L Chloride 106 (98-107) mmol/L Carbon Dioxide 24.9 (21.0-32.0) mmol/L BUN 46 H (7.0-18.0) mg/dL Creatinine 1.1 H (0.6-1.0) mg/dL Est Cr Clr Drug Dosing 32.76 mL/min Estimated GFR (MDRD) 47.4 ml/min Glucose 178 H (74-106) mg/dL POC Glucose 158 H (70-99) mg/dL Calcium 8.3 L (8.5-10.1) mg/dL Magnesium 2.1 (1.8-2.4) mg/dL Med Orders - Current: Current Medications Acetaminophen (Acetaminophen 325 Mg Tab) 650 mg PO Q4H PRN PRN Reason: Pain (Mild 1-3)/fever Albuterol/Ipratropium (Albuterol/Ipratropium 4 Gm Inhalation [place]) 1 gm INH QID [facility] Last Admin: 03/25/21 10:15 Dose: 1 puff Documented by: Baricitinib (Baricitinib 2 Mg Tab) 4 mg PO Q24H [facility] Last Admin: 03/24/21 13:07 Dose: 4 mg Documented by: Benzonatate (Benzonatate 100 Mg Cap) 100 mg PO Q6H PRN PRN Reason: Cough Last Admin: 03/24/21 23:34 Dose: 100 mg Documented by: Dexamethasone (Dexamethasone 4 Mg Tab) 6 mg PO DAILY [facility] Last Admin: 03/25/21 10:16 Dose: 6 mg Documented by: Dextrose/Water (50% Dextrose In Water 50 Ml Syringe) 50 ml IVPUSH ASDIRECTED PRN PRN Reason: Hypoglycemia Diltiazem HCl (Diltiazem 120 Mg Cap.Cd) 120 mg PO DAILY [facility] Last Admin: 03/25/21 10:16 Dose: 120 mg Documented by: Enoxaparin Sodium (Enoxaparin 40 Mg/0.4 Ml Syringe) 40 mg SUBCUT Q24H [facility] Last Admin: 03/24/21 18:11 Dose: 40 mg Documented by: Fluoxetine HCl (Fluoxetine 10 Mg Tab) 10 mg PO DAILY [facility] Last Admin: 03/25/21 10:16 Dose: 10 mg Documented by: Furosemide (Furosemide 20 Mg Tab) 20 mg PO DAILY [facility] Last Admin: 03/25/21 10:16 Dose: 20 mg Documented by: Glucagon (Glucagon,Human Recombinant 1 Mg Vial) 1 mg IM ASDIRECTED PRN PRN Reason: Hypoglycemia Remdesivir 100 mg/ Sodium (Chloride) 100 mls @ 100 mls/hr IV Q24H [facility] Stop: 03/26/21 15:59 Last Admin: 03/24/21 15:12 Dose: 100 mls/hr Documented by: Ceftriaxone Sodium/Dextrose 1 (gm/ Premix) 50 mls @ 100 mls/hr IV Q24H [facility] Last Admin: 03/24/21 16:24 Dose: 100 mls/hr Documented by: Azithromycin 500 mg/ Sodium (Chloride) 250 mls @ 250 mls/hr IV Q24H [facility] Last Admin: 03/24/21 18:10 Dose: 250 mls/hr Documented by: Insulin Aspart (Insulin Aspart 100 Units/Ml 3 Ml Pen) 0 unit SUBCUT QIDACANDBED [facility]; Protocol Last Admin: 03/25/21 11:57 Dose: 3 units Documented by: Insulin Glargine (Insulin Glargine,Human Rec. Analog 100 Units/Ml 3 Ml Pen) 20 units SUBCUT BID [facility] Last Admin: 03/25/21 11:55 Dose: 20 units Documented by: Lorazepam (Lorazepam 0.5 Mg Tab) 0.25 mg PO Q4H PRN PRN Reason: Anxiety Sildenafil 20 Mg Tab 0.5 each PO BID [facility] Valsartan (Valsartan 80 Mg Tab) 80 mg PO BID [facility] Last Admin: 03/25/21 10:17 Dose: 80 mg Documented by: Discontinued Medications Dexamethasone (Dexamethasone 10 Mg/Ml Sdv) 10 mg IVPUSH ONETIME ONE Stop: 03/22/21 13:14 Last Admin: 03/22/21 13:41 Dose: 10 mg Documented by: Remdesivir 200 mg/ Sodium (Chloride) 250 mls @ 250 mls/hr IV ONETIME ONE Stop: 03/22/21 14:33 Last Admin: 03/22/21 15:25 Dose: 250 mls/hr Documented by: Insulin Aspart (Insulin Aspart 100 Units/Ml 3 Ml Pen) 0 unit SUBCUT TIDAC [facility]; Protocol Last Admin: 03/23/21 12:37 Dose: Not Given Documented by: Insulin Aspart (Insulin Aspart 100 Units/Ml 3 Ml Pen) 7 unit SUBCUT ONETIME ONE Stop: 03/23/21 00:49 Last Admin: 03/23/21 01:15 Dose: 7 units Documented by: Insulin Aspart (Insulin Aspart 100 Units/Ml 3 Ml Pen) 0 unit SUBCUT TIDAC [facility]; Protocol Last Admin: 03/24/21 18:37 Dose: 15 units Documented by: Insulin Glargine (Insulin Glargine,Human Rec. Analog 100 Units/Ml 3 Ml Pen) 6 units SUBCUT BEDTIME [facility] Last Admin: 03/22/21 20:27 Dose: 6 units Documented by: Insulin Glargine (Insulin Glargine,Human Rec. Analog 100 Units/Ml 3 Ml Pen) 10 units SUBCUT BID [facility] Last Admin: 03/24/21 09:06 Dose: 10 units Documented by: Insulin Glargine (Insulin Glargine,Human Rec. Analog 100 Units/Ml 3 Ml Pen) 14 units SUBCUT BID [facility] Iopamidol (Iopamidol 755 Mg/Ml 500 Ml Multipack Bottle) 100 ml IVPUSH ONETIME STA Stop: 03/22/21 16:26 Last Admin: 03/22/21 16:26 Dose: 100 ml Documented by: Levothyroxine Sodium (Levothyroxine 112 Mcg Tab) 112 mcg PO DAILY@0600 [facility] Last Admin: 03/24/21 06:42 Dose: 112 mcg Documented by: Lorazepam (Lorazepam 0.5 Mg Tab) 0.5 mg PO Q4H PRN PRN Reason: Anxiety Last Admin: 03/25/21 00:21 Dose: 0.5 mg Documented by: Non-Formulary Medication (Sacubitril/Valsartan [Entresto 97 Mg-103 Mg Tablet]) 97 - 103 mg PO BID [facility] Last Admin: 03/23/21 00:53 Dose: Not Given Documented by: - Exam General: Alert, Oriented, Cooperative HEENT: Mucous Membr. Moist/[place] Neck: Trachea Midline Lungs: Decreased Breath Sounds Cardiovascular: Regular Rate, Regular Rhythm GI/Abdominal Exam: Normal Bowel Sounds, Soft, Non-Tender - Patient Data Lab Results Last 24 hrs: Laboratory Results - last 24 hr 03/24/21 03/24/21 03/24/21 Range/Units 13:19 13:44 18:18 WBC (4.0-11.0) K/uL RBC (4.30-5.90) M/uL Hgb (12.0-16.0) g/dL Hct (36.0-46.0) % MCV (80.0-98.0) fL MCH (27.0-32.0) pg MCHC (31.0-37.0) g/dL RDW Std Deviation (28.0-62.0) fl RDW Coeff of Andree (11.0-15.0) % Plt Count (150-400) K/uL MPV (7.40-12.00) fL Neut % (Auto) (48.0-80.0) % Lymph % (Auto) (16.0-40.0) % Kane % (Auto) (0.0-15.0) % Eos % (Auto) (0.0-7.0) % Baso % (Auto) (0.0-1.5) % Neut # (Auto) (1.4-5.7) K/uL Lymph # (Auto) (0.6-2.4) K/uL Kane # (Auto) (0.0-0.8) K/uL Eos # (Auto) (0.0-0.7) K/uL Baso # (Auto) (0.0-0.1) K/uL Nucleated RBC % /100WBC Nucleated RBCs # K/uL D-Dimer, Quantitative 5.16 H (0.0-0.50) mg/L FEU Sodium (136-145) mmol/L Potassium (3.5-5.1) mmol/L Chloride (98-107) mmol/L Carbon Dioxide (21.0-32.0) mmol/L BUN (7.0-18.0) mg/dL Creatinine (0.6-1.0) mg/dL Est Cr Clr Drug Dosing mL/min Estimated GFR (MDRD) ml/min Glucose (74-106) mg/dL POC Glucose 198 H 403 H* (70-99) mg/dL Calcium (8.5-10.1) mg/dL Magnesium (1.8-2.4) mg/dL 03/24/21 03/25/21 03/25/21 Range/Units 20:30 06:43 06:44 WBC 12.21 H (4.0-11.0) K/uL RBC 4.22 L (4.30-5.90) M/uL Hgb 12.1 (12.0-16.0) g/dL Hct 36.0 (36.0-46.0) % MCV 85.3 (80.0-98.0) fL MCH 28.7 (27.0-32.0) pg MCHC 33.6 (31.0-37.0) g/dL RDW Std Deviation 42.3 (28.0-62.0) fl RDW Coeff of Andree 14 (11.0-15.0) % Plt Count 240 (150-400) K/uL MPV 10.20 (7.40-12.00) fL Neut % (Auto) 84.6 H (48.0-80.0) % Lymph % (Auto) 10.9 L (16.0-40.0) % Kane % (Auto) 4.4 (0.0-15.0) % Eos % (Auto) 0.0 (0.0-7.0) % Baso % (Auto) 0.1 (0.0-1.5) % Neut # (Auto) 10.3 H (1.4-5.7) K/uL Lymph # (Auto) 1.3 (0.6-2.4) K/uL Kane # (Auto) 0.5 (0.0-0.8) K/uL Eos # (Auto) 0.0 (0.0-0.7) K/uL Baso # (Auto) 0.0 (0.0-0.1) K/uL Nucleated RBC % 0.0 /100WBC Nucleated RBCs # 0 K/uL D-Dimer, Quantitative (0.0-0.50) mg/L FEU Sodium (136-145) mmol/L Potassium (3.5-5.1) mmol/L Chloride (98-107) mmol/L Carbon Dioxide (21.0-32.0) mmol/L BUN (7.0-18.0) mg/dL Creatinine (0.6-1.0) mg/dL Est Cr Clr Drug Dosing mL/min Estimated GFR (MDRD) ml/min Glucose (74-106) mg/dL POC Glucose 461 H* 150 H (70-99) mg/dL Calcium (8.5-10.1) mg/dL Magnesium (1.8-2.4) mg/dL 03/25/21 03/25/21 Range/Units 06:44 11:40 WBC (4.0-11.0) K/uL RBC (4.30-5.90) M/uL Hgb (12.0-16.0) g/dL Hct (36.0-46.0) % MCV (80.0-98.0) fL MCH (27.0-32.0) pg MCHC (31.0-37.0) g/dL RDW Std Deviation (28.0-62.0) fl RDW Coeff of Andree (11.0-15.0) % Plt Count (150-400) K/uL MPV (7.40-12.00) fL Neut % (Auto) (48.0-80.0) % Lymph % (Auto) (16.0-40.0) % Kane % (Auto) (0.0-15.0) % Eos % (Auto) (0.0-7.0) % Baso % (Auto) (0.0-1.5) % Neut # (Auto) (1.4-5.7) K/uL Lymph # (Auto) (0.6-2.4) K/uL Kane # (Auto) (0.0-0.8) K/uL Eos # (Auto) (0.0-0.7) K/uL Baso # (Auto) (0.0-0.1) K/uL Nucleated RBC % /100WBC Nucleated RBCs # K/uL D-Dimer, Quantitative (0.0-0.50) mg/L FEU Sodium 139 (136-145) mmol/L Potassium 4.6 (3.5-5.1) mmol/L Chloride 106 (98-107) mmol/L Carbon Dioxide 24.9 (21.0-32.0) mmol/L BUN 46 H (7.0-18.0) mg/dL Creatinine 1.1 H (0.6-1.0) mg/dL Est Cr Clr Drug Dosing 32.76 mL/min Estimated GFR (MDRD) 47.4 ml/min Glucose 178 H (74-106) mg/dL POC Glucose 158 H (70-99) mg/dL Calcium 8.3 L (8.5-10.1) mg/dL Magnesium 2.1 (1.8-2.4) mg/dL Result Diagrams: 03/25/21 06:44 03/25/21 06:44 Sepsis Event Note - Evaluation Sepsis Screening Result: Sepsis Risk - Focused Exam Vital Signs: Vital Signs Temp Pulse Resp BP BP Pulse Ox 03/25/21 10:17 174/72 H 03/25/21 10:16 63 174/72 H 03/25/21 10:00 15 174/72 H 95 03/25/21 09:00 20 165/76 H 96 03/25/21 08:00 97 F 21 H 162/69 H 95 03/25/21 07:00 21 H 155/71 H 94 L 03/25/21 06:00 22 H 173/68 H 94 L 03/25/21 05:00 22 H 166/71 H 94 L 03/25/21 04:00 19 162/70 H 96 03/25/21 03:00 22 H 160/78 H 96 03/25/21 02:00 23 H 167/74 H 94 L 03/25/21 01:00 98 F 20 162/82 H 94 L - Problem List & Annotations (1) Pneumonia SNOMED Code(s): 985777758 Code(s): J18.9 - PNEUMONIA, UNSPECIFIED ORGANISM Status: Acute Current Visit: Yes (2) Acute hypoxemic respiratory failure due to COVID-19 SNOMED Code(s): 312899329 Code(s): U07.1 - COVID-19; J96.01 - ACUTE RESPIRATORY FAILURE WITH HYPOXIA Status: Acute Current Visit: Yes (3) Pulmonary hypertension SNOMED Code(s): 22794829 Code(s): I27.20 - PULMONARY HYPERTENSION, UNSPECIFIED Status: Acute Current Visit: Yes (4) Diabetes type 2, uncontrolled SNOMED Code(s): 160897064, 673703189 Code(s): E11.65 - TYPE 2 DIABETES MELLITUS WITH HYPERGLYCEMIA Status: Chronic Priority: High Current Visit: No Qualifiers: Glycemic state: with hyperglycemia Qualified Code(s): E11.65 - Type 2 diabetes mellitus with hyperglycemia - Problem List Review Problem List Initiated/Reviewed/Updated: Yes - My Orders Last 24 Hours: My Active Orders 03/25/21 11:15 Patient's Own Medication [Ptom] 0.5 each PO BID - Assessment Assessment:: 1. COVID-19 pneumonia -Continue dexamethasone per oral route -Continue remdesivir per IV route -Continue baricitinib per oral route -Continue Combivent for shortness of breath -Continue Tessalon Perles for cough and congestion -For anxiety Ativan has been used -Continue to wean oxygen as appropriate, currently saturating 94% on 6 L 2. Bacterial pneumonia -Continue Rocephin 1 g per IV route every 24 hours -Continue azithromycin 500 mg IV every 24 hours -Continue to monitor patients labs 3. Diabetes mellitus -Continue Lantus/glargine -Continue insulin sliding scale/NovoLog 4. Past medical history -Continue Cardizem, Prozac, sildenafil
[2021-03-25] MEDS: REMDESIVIR 100 MG in Sodium Chloride 0.9% 100 ML IV SCH (14:08)
[2021-03-25] MEDS: cefTRIAXone 1 GM in Premix Bag 1 BAG IV SCH (15:33)
[2021-03-25] MEDS: Benzonatate 100 MG Cap PO PRN ×2 (15:43→22:03)
[2021-03-25] MEDS: Enoxaparin 40 MG/0.4 ML Syringe SUBCUT SCH (17:54)
[2021-03-25] MEDS: Azithromycin 500 MG in Sodium Chloride 0.9% 250 ML IV SCH (17:54)
[2021-03-26] MEDS: Albuterol/Ipratropium 4 GM Inhalation Spray INH SCH ×4 (00:29→17:26)
[2021-03-26] MEDS: LORazepam 0.5 MG Tab PO PRN (00:29)
[2021-03-26 08:34] LABS: CARBON DIOXIDE,CO2 25.6 mmol/L (21.0-32.0); POTASSIUM,K 4.1 mmol/L (3.5-5.1)
[2021-03-26] MEDS: Dexamethasone 4 MG Tab PO SCH (09:04)
[2021-03-26] MEDS: Benzonatate 100 MG Cap PO PRN ×2 (09:04→20:51)
[2021-03-26] MEDS: Furosemide 20 MG Tab PO SCH (09:04)
[2021-03-26] MEDS: Diltiazem 120 MG Cap.CD PO SCH (09:05)
[2021-03-26] MEDS: Insulin Aspart 100 Units/ML 3 ML Pen SUBCUT SCH ×4 (09:32→22:08)
[2021-03-26] MEDS: Insulin Glargine,Human Rec. Analog 100 Units/ML 3 ML Pen SUBCUT SCH ×2 (09:33→22:06)
[2021-03-26] MEDS ORDERED: 50% Dextrose in Water 50 ML Syringe IVPUSH PRN ×2 (09:52→09:54)
[2021-03-26] MEDS ORDERED: Glucagon,Human Recombinant 1 MG Vial IM PRN ×2 (09:52→09:54)
--- NOTE | 2021-03-26 13:07 | PCM.PN ---
- General Info Date of Service: 03/26/21 Admission Dx/Problem (Free Text): Pt is making some progress today. She is off the HFNC and on 4-5L NC now. She is able to get up and spend time sitting up in a chair. She still feels weak but overall her energy level is improving. - Patient Data Vitals - Most Recent: Last Vital Signs Temp 97.0 F 03/26/21 12:00 Pulse 72 03/26/21 09:05 Resp 21 H 03/26/21 12:00 BP 146/71 H 03/26/21 12:00 Pulse Ox 89 L 03/26/21 12:00 Weight - Most Recent: 174 lb 6.17 oz I&O - Last 24 Hours: Intake & Output 03/25/21 03/26/21 03/26/21 22:59 06:59 14:59 Intake Total 850 650 Output Total 700 850 Balance 150 -200 Lab Results Last 24 Hours: Laboratory Results - last 24 hr 03/25/21 03/25/21 03/26/21 Range/Units 18:02 22:08 06:44 WBC (4.0-11.0) K/uL RBC (4.30-5.90) M/uL Hgb (12.0-16.0) g/dL Hct (36.0-46.0) % MCV (80.0-98.0) fL MCH (27.0-32.0) pg MCHC (31.0-37.0) g/dL RDW Std Deviation (28.0-62.0) fl RDW Coeff of Andree (11.0-15.0) % Plt Count (150-400) K/uL MPV (7.40-12.00) fL Neut % (Auto) (48.0-80.0) % Lymph % (Auto) (16.0-40.0) % Sherman % (Auto) (0.0-15.0) % Eos % (Auto) (0.0-7.0) % Baso % (Auto) (0.0-1.5) % Neut # (Auto) (1.4-5.7) K/uL Lymph # (Auto) (0.6-2.4) K/uL Sherman # (Auto) (0.0-0.8) K/uL Eos # (Auto) (0.0-0.7) K/uL Baso # (Auto) (0.0-0.1) K/uL Nucleated RBC % /100WBC Nucleated RBCs # K/uL Sodium (136-145) mmol/L Potassium (3.5-5.1) mmol/L Chloride (98-107) mmol/L Carbon Dioxide (21.0-32.0) mmol/L BUN (7.0-18.0) mg/dL Creatinine (0.6-1.0) mg/dL Est Cr Clr Drug Dosing mL/min Estimated GFR (MDRD) ml/min Glucose (74-106) mg/dL POC Glucose 372 H 254 H 52 L* (70-99) mg/dL Calcium (8.5-10.1) mg/dL Total Bilirubin (0.2-1.0) mg/dL AST (15-37) IU/L ALT (14-63) IU/L Alkaline Phosphatase (46-116) U/L Total Protein (6.4-8.2) g/dL Albumin (3.4-5.0) g/dL Globulin (2.6-4.0) g/dL Albumin/Globulin Ratio (0.9-1.6) 03/26/21 03/26/21 03/26/21 Range/Units 06:45 06:45 09:11 WBC 12.53 H (4.0-11.0) K/uL RBC 4.24 L (4.30-5.90) M/uL Hgb 12.0 (12.0-16.0) g/dL Hct 36.2 (36.0-46.0) % MCV 85.4 (80.0-98.0) fL MCH 28.3 (27.0-32.0) pg MCHC 33.1 (31.0-37.0) g/dL RDW Std Deviation 42.4 (28.0-62.0) fl RDW Coeff of Andree 14 (11.0-15.0) % Plt Count 242 (150-400) K/uL MPV 10.70 (7.40-12.00) fL Neut % (Auto) 85.2 H (48.0-80.0) % Lymph % (Auto) 9.3 L (16.0-40.0) % Sherman % (Auto) 5.4 (0.0-15.0) % Eos % (Auto) 0.1 (0.0-7.0) % Baso % (Auto) 0.0 (0.0-1.5) % Neut # (Auto) 10.7 H (1.4-5.7) K/uL Lymph # (Auto) 1.2 (0.6-2.4) K/uL Sherman # (Auto) 0.7 (0.0-0.8) K/uL Eos # (Auto) 0.0 (0.0-0.7) K/uL Baso # (Auto) 0.0 (0.0-0.1) K/uL Nucleated RBC % 0.0 /100WBC Nucleated RBCs # 0 K/uL Sodium 140 (136-145) mmol/L Potassium 4.1 (3.5-5.1) mmol/L Chloride 107 (98-107) mmol/L Carbon Dioxide 25.6 (21.0-32.0) mmol/L BUN 53 H (7.0-18.0) mg/dL Creatinine 1.0 (0.6-1.0) mg/dL Est Cr Clr Drug Dosing 35.86 mL/min Estimated GFR (MDRD) 53.0 ml/min Glucose 67 L (74-106) mg/dL POC Glucose 97 (70-99) mg/dL Calcium 8.1 L (8.5-10.1) mg/dL Total Bilirubin 0.4 (0.2-1.0) mg/dL AST 25 (15-37) IU/L ALT 22 (14-63) IU/L Alkaline Phosphatase 98 (46-116) U/L Total Protein 7.1 (6.4-8.2) g/dL Albumin 2.2 L (3.4-5.0) g/dL Globulin 4.9 H (2.6-4.0) g/dL Albumin/Globulin Ratio 0.5 L (0.9-1.6) 03/26/21 Range/Units 12:42 WBC (4.0-11.0) K/uL RBC (4.30-5.90) M/uL Hgb (12.0-16.0) g/dL Hct (36.0-46.0) % MCV (80.0-98.0) fL MCH (27.0-32.0) pg MCHC (31.0-37.0) g/dL RDW Std Deviation (28.0-62.0) fl RDW Coeff of Andree (11.0-15.0) % Plt Count (150-400) K/uL MPV (7.40-12.00) fL Neut % (Auto) (48.0-80.0) % Lymph % (Auto) (16.0-40.0) % Sherman % (Auto) (0.0-15.0) % Eos % (Auto) (0.0-7.0) % Baso % (Auto) (0.0-1.5) % Neut # (Auto) (1.4-5.7) K/uL Lymph # (Auto) (0.6-2.4) K/uL Sherman # (Auto) (0.0-0.8) K/uL Eos # (Auto) (0.0-0.7) K/uL Baso # (Auto) (0.0-0.1) K/uL Nucleated RBC % /100WBC Nucleated RBCs # K/uL Sodium (136-145) mmol/L Potassium (3.5-5.1) mmol/L Chloride (98-107) mmol/L Carbon Dioxide (21.0-32.0) mmol/L BUN (7.0-18.0) mg/dL Creatinine (0.6-1.0) mg/dL Est Cr Clr Drug Dosing mL/min Estimated GFR (MDRD) ml/min Glucose (74-106) mg/dL POC Glucose 188 H (70-99) mg/dL Calcium (8.5-10.1) mg/dL Total Bilirubin (0.2-1.0) mg/dL AST (15-37) IU/L ALT (14-63) IU/L Alkaline Phosphatase (46-116) U/L Total Protein (6.4-8.2) g/dL Albumin (3.4-5.0) g/dL Globulin (2.6-4.0) g/dL Albumin/Globulin Ratio (0.9-1.6) Med Orders - Current: Current Medications Acetaminophen (Acetaminophen 325 Mg Tab) 650 mg PO Q4H PRN PRN Reason: Pain (Mild 1-3)/fever Albuterol/Ipratropium (Albuterol/Ipratropium 4 Gm Inhalation [place]) 1 gm INH QID [facility] Last Admin: 03/26/21 12:37 Dose: 1 puff Documented by: Baricitinib (Baricitinib 2 Mg Tab) 4 mg PO Q24H [facility] Last Admin: 03/26/21 12:38 Dose: 4 mg Documented by: Benzonatate (Benzonatate 100 Mg Cap) 100 mg PO Q6H PRN PRN Reason: Cough Last Admin: 03/26/21 09:04 Dose: 100 mg Documented by: Dexamethasone (Dexamethasone 4 Mg Tab) 6 mg PO DAILY [facility] Last Admin: 03/26/21 09:04 Dose: 6 mg Documented by: Dextrose/Water (50% Dextrose In Water 50 Ml Syringe) 50 ml IVPUSH ASDIRECTED PRN PRN Reason: Hypoglycemia Diltiazem HCl (Diltiazem 120 Mg Cap.Cd) 120 mg PO DAILY [facility] Last Admin: 03/26/21 09:05 Dose: 120 mg Documented by: Enoxaparin Sodium (Enoxaparin 40 Mg/0.4 Ml Syringe) 40 mg SUBCUT Q24H [facility] Last Admin: 03/25/21 17:54 Dose: 40 mg Documented by: Fluoxetine HCl (Fluoxetine 10 Mg Tab) 10 mg PO DAILY [facility] Last Admin: 03/26/21 09:04 Dose: 10 mg Documented by: Furosemide (Furosemide 20 Mg Tab) 20 mg PO DAILY [facility] Last Admin: 03/26/21 09:04 Dose: 20 mg Documented by: Glucagon (Glucagon,Human Recombinant 1 Mg Vial) 1 mg IM ASDIRECTED PRN PRN Reason: Hypoglycemia Remdesivir 100 mg/ Sodium (Chloride) 100 mls @ 100 mls/hr IV Q24H [facility] Stop: 03/26/21 15:59 Last Admin: 03/25/21 14:08 Dose: 100 mls/hr Documented by: Ceftriaxone Sodium/Dextrose 1 (gm/ Premix) 50 mls @ 100 mls/hr IV Q24H [facility] Last Admin: 03/25/21 15:33 Dose: 100 mls/hr Documented by: Azithromycin 500 mg/ Sodium (Chloride) 250 mls @ 250 mls/hr IV Q24H [facility] Last Admin: 03/25/21 17:54 Dose: 250 mls/hr Documented by: Insulin Aspart (Insulin Aspart 100 Units/Ml 3 Ml Pen) 0 unit SUBCUT QIDACANDBED [facility]; Protocol Last Admin: 03/26/21 12:46 Dose: 1 unit Documented by: Insulin Glargine (Insulin Glargine,Human Rec. Analog 100 Units/Ml 3 Ml Pen) 15 units SUBCUT BIDAC TEO Lorazepam (Lorazepam 0.5 Mg Tab) 0.25 mg PO Q4H PRN PRN Reason: Anxiety Last Admin: 03/26/21 00:29 Dose: 0.25 mg Documented by: Melatonin (Melatonin 3 Mg Tab) 3 mg PO BEDTIME PRN PRN Reason: Insomnia Valsartan (Valsartan 80 Mg Tab) 80 mg PO BID TEO Last Admin: 03/26/21 09:05 Dose: 80 mg Documented by: Discontinued Medications Dexamethasone (Dexamethasone 10 Mg/Ml Sdv) 10 mg IVPUSH ONETIME ONE Stop: 03/22/21 13:14 Last Admin: 03/22/21 13:41 Dose: 10 mg Documented by: Remdesivir 200 mg/ Sodium (Chloride) 250 mls @ 250 mls/hr IV ONETIME ONE Stop: 03/22/21 14:33 Last Admin: 03/22/21 15:25 Dose: 250 mls/hr Documented by: Insulin Aspart (Insulin Aspart 100 Units/Ml 3 Ml Pen) 0 unit SUBCUT TIDAC [facility]; Protocol Last Admin: 03/23/21 12:37 Dose: Not Given Documented by: Insulin Aspart (Insulin Aspart 100 Units/Ml 3 Ml Pen) 7 unit SUBCUT ONETIME ONE Stop: 03/23/21 00:49 Last Admin: 03/23/21 01:15 Dose: 7 units Documented by: Insulin Aspart (Insulin Aspart 100 Units/Ml 3 Ml Pen) 0 unit SUBCUT TIDAC [facility]; Protocol Last Admin: 03/24/21 18:37 Dose: 15 units Documented by: Insulin Aspart (Insulin Aspart 100 Units/Ml 3 Ml Pen) 0 unit SUBCUT QIDACANDBED [facility]; Protocol Last Admin: 03/26/21 09:32 Dose: Not Given Documented by: Insulin Glargine (Insulin Glargine,Human Rec. Analog 100 Units/Ml 3 Ml Pen) 6 units SUBCUT BEDTIME [facility] Last Admin: 03/22/21 20:27 Dose: 6 units Documented by: Insulin Glargine (Insulin Glargine,Human Rec. Analog 100 Units/Ml 3 Ml Pen) 10 units SUBCUT BID [facility] Last Admin: 03/24/21 09:06 Dose: 10 units Documented by: Insulin Glargine (Insulin Glargine,Human Rec. Analog 100 Units/Ml 3 Ml Pen) 14 units SUBCUT BID [facility] Insulin Glargine (Insulin Glargine,Human Rec. Analog 100 Units/Ml 3 Ml Pen) 20 units SUBCUT BID [facility] Last Admin: 03/26/21 09:33 Dose: Not Given Documented by: Iopamidol (Iopamidol 755 Mg/Ml 500 Ml Multipack Bottle) 100 ml IVPUSH ONETIME STA Stop: 03/22/21 16:26 Last Admin: 03/22/21 16:26 Dose: 100 ml Documented by: Levothyroxine Sodium (Levothyroxine 112 Mcg Tab) 112 mcg PO DAILY@0600 [facility] Last Admin: 03/24/21 06:42 Dose: 112 mcg Documented by: Lorazepam (Lorazepam 0.5 Mg Tab) 0.5 mg PO Q4H PRN PRN Reason: Anxiety Last Admin: 03/25/21 00:21 Dose: 0.5 mg Documented by: Non-Formulary Medication (Sacubitril/Valsartan [Entresto 97 Mg-103 Mg Tablet]) 97 - 103 mg PO BID [facility] Last Admin: 03/23/21 00:53 Dose: Not Given Documented by: Sildenafil 20 Mg Tab 0.5 each PO BID [facility] Last Admin: 03/25/21 13:49 Dose: Not Given Documented by: - Exam Physical Findings Comments:: General: Alert, Oriented. In no distress. Able to speak in full sentences. Lungs: Diminished bilaterally but clear to Auscultation, Normal Respiratory Effort Cardiovascular: Regular Rate, Regular Rhythm GI: Obese, soft, non tender. bowel sound present Extremities: Non-Tender, No Pedal Edema Skin: Warm, Dry, Intact Neurological: No: Cranial Nerves Intact - Patient Data Lab Results Last 24 hrs: Laboratory Results - last 24 hr 03/25/21 03/25/21 03/26/21 Range/Units 18:02 22:08 06:44 WBC (4.0-11.0) K/uL RBC (4.30-5.90) M/uL Hgb (12.0-16.0) g/dL Hct (36.0-46.0) % MCV (80.0-98.0) fL MCH (27.0-32.0) pg MCHC (31.0-37.0) g/dL RDW Std Deviation (28.0-62.0) fl RDW Coeff of Andree (11.0-15.0) % Plt Count (150-400) K/uL MPV (7.40-12.00) fL Neut % (Auto) (48.0-80.0) % Lymph % (Auto) (16.0-40.0) % Sherman % (Auto) (0.0-15.0) % Eos % (Auto) (0.0-7.0) % Baso % (Auto) (0.0-1.5) % Neut # (Auto) (1.4-5.7) K/uL Lymph # (Auto) (0.6-2.4) K/uL Sherman # (Auto) (0.0-0.8) K/uL Eos # (Auto) (0.0-0.7) K/uL Baso # (Auto) (0.0-0.1) K/uL Nucleated RBC % /100WBC Nucleated RBCs # K/uL Sodium (136-145) mmol/L Potassium (3.5-5.1) mmol/L Chloride (98-107) mmol/L Carbon Dioxide (21.0-32.0) mmol/L BUN (7.0-18.0) mg/dL Creatinine (0.6-1.0) mg/dL Est Cr Clr Drug Dosing mL/min Estimated GFR (MDRD) ml/min Glucose (74-106) mg/dL POC Glucose 372 H 254 H 52 L* (70-99) mg/dL Calcium (8.5-10.1) mg/dL Total Bilirubin (0.2-1.0) mg/dL AST (15-37) IU/L ALT (14-63) IU/L Alkaline Phosphatase (46-116) U/L Total Protein (6.4-8.2) g/dL Albumin (3.4-5.0) g/dL Globulin (2.6-4.0) g/dL Albumin/Globulin Ratio (0.9-1.6) 03/26/21 03/26/21 03/26/21 Range/Units 06:45 06:45 09:11 WBC 12.53 H (4.0-11.0) K/uL RBC 4.24 L (4.30-5.90) M/uL Hgb 12.0 (12.0-16.0) g/dL Hct 36.2 (36.0-46.0) % MCV 85.4 (80.0-98.0) fL MCH 28.3 (27.0-32.0) pg MCHC 33.1 (31.0-37.0) g/dL RDW Std Deviation 42.4 (28.0-62.0) fl RDW Coeff of Andree 14 (11.0-15.0) % Plt Count 242 (150-400) K/uL MPV 10.70 (7.40-12.00) fL Neut % (Auto) 85.2 H (48.0-80.0) % Lymph % (Auto) 9.3 L (16.0-40.0) % Sherman % (Auto) 5.4 (0.0-15.0) % Eos % (Auto) 0.1 (0.0-7.0) % Baso % (Auto) 0.0 (0.0-1.5) % Neut # (Auto) 10.7 H (1.4-5.7) K/uL Lymph # (Auto) 1.2 (0.6-2.4) K/uL Sherman # (Auto) 0.7 (0.0-0.8) K/uL Eos # (Auto) 0.0 (0.0-0.7) K/uL Baso # (Auto) 0.0 (0.0-0.1) K/uL Nucleated RBC % 0.0 /100WBC Nucleated RBCs # 0 K/uL Sodium 140 (136-145) mmol/L Potassium 4.1 (3.5-5.1) mmol/L Chloride 107 (98-107) mmol/L Carbon Dioxide 25.6 (21.0-32.0) mmol/L BUN 53 H (7.0-18.0) mg/dL Creatinine 1.0 (0.6-1.0) mg/dL Est Cr Clr Drug Dosing 35.86 mL/min Estimated GFR (MDRD) 53.0 ml/min Glucose 67 L (74-106) mg/dL POC Glucose 97 (70-99) mg/dL Calcium 8.1 L (8.5-10.1) mg/dL Total Bilirubin 0.4 (0.2-1.0) mg/dL AST 25 (15-37) IU/L ALT 22 (14-63) IU/L Alkaline Phosphatase 98 (46-116) U/L Total Protein 7.1 (6.4-8.2) g/dL Albumin 2.2 L (3.4-5.0) g/dL Globulin 4.9 H (2.6-4.0) g/dL Albumin/Globulin Ratio 0.5 L (0.9-1.6) 03/26/21 Range/Units 12:42 WBC (4.0-11.0) K/uL RBC (4.30-5.90) M/uL Hgb (12.0-16.0) g/dL Hct (36.0-46.0) % MCV (80.0-98.0) fL MCH (27.0-32.0) pg MCHC (31.0-37.0) g/dL RDW Std Deviation (28.0-62.0) fl RDW Coeff of Andree (11.0-15.0) % Plt Count (150-400) K/uL MPV (7.40-12.00) fL Neut % (Auto) (48.0-80.0) % Lymph % (Auto) (16.0-40.0) % Sherman % (Auto) (0.0-15.0) % Eos % (Auto) (0.0-7.0) % Baso % (Auto) (0.0-1.5) % Neut # (Auto) (1.4-5.7) K/uL Lymph # (Auto) (0.6-2.4) K/uL Sherman # (Auto) (0.0-0.8) K/uL Eos # (Auto) (0.0-0.7) K/uL Baso # (Auto) (0.0-0.1) K/uL Nucleated RBC % /100WBC Nucleated RBCs # K/uL Sodium (136-145) mmol/L Potassium (3.5-5.1) mmol/L Chloride (98-107) mmol/L Carbon Dioxide (21.0-32.0) mmol/L BUN (7.0-18.0) mg/dL Creatinine (0.6-1.0) mg/dL Est Cr Clr Drug Dosing mL/min Estimated GFR (MDRD) ml/min Glucose (74-106) mg/dL POC Glucose 188 H (70-99) mg/dL Calcium (8.5-10.1) mg/dL Total Bilirubin (0.2-1.0) mg/dL AST (15-37) IU/L ALT (14-63) IU/L Alkaline Phosphatase (46-116) U/L Total Protein (6.4-8.2) g/dL Albumin (3.4-5.0) g/dL Globulin (2.6-4.0) g/dL Albumin/Globulin Ratio (0.9-1.6) Result Diagrams: 03/26/21 06:45 03/26/21 06:45 Sepsis Event Note - Evaluation Sepsis Screening Result: No Definite Risk - Focused Exam Vital Signs: Vital Signs Temp Pulse Resp BP BP Pulse Ox Pulse Ox 03/26/21 12:00 97.0 F 21 H 146/71 H 89 L 03/26/21 11:00 21 H 157/69 H 89 L 03/26/21 10:00 17 159/71 H 93 L 94 L 03/26/21 09:05 72 156/78 H 03/26/21 09:00 21 H 156/78 H 93 L 03/26/21 08:00 96.8 F L 19 160/64 H 93 L 03/26/21 07:00 22 H 151/65 H 90 L 03/26/21 06:00 19 161/66 H 93 L 03/26/21 05:00 23 H 152/73 H 90 L 03/26/21 04:00 97.8 F 19 155/68 H 89 L 03/26/21 03:00 19 143/70 H 90 L 03/26/21 02:00 19 150/69 H 95 - Problem List & Annotations (1) Acute hypoxemic respiratory failure due to COVID-19 SNOMED Code(s): 111777798 Code(s): U07.1 - COVID-19; J96.01 - ACUTE RESPIRATORY FAILURE WITH HYPOXIA Status: Acute Current Visit: Yes (2) COVID-19 SNOMED Code(s): 939891128 Code(s): U07.1 - COVID-19 Status: Acute Current Visit: No (3) Overweight (BMI 25.0-29.9) SNOMED Code(s): 630959134 Code(s): E66.3 - OVERWEIGHT Status: Acute Current Visit: Yes (4) CAP (community acquired pneumonia) SNOMED Code(s): 956055641 Code(s): J18.9 - PNEUMONIA, UNSPECIFIED ORGANISM Status: Acute Current Visit: No Qualifiers: Laterality: right Lung location: lower lobe of lung Qualified Code(s): J18.9 - Pneumonia, unspecified organism (5) Acute hypoxemic respiratory failure due to COVID-19 SNOMED Code(s): 687328621 Code(s): U07.1 - COVID-19; J96.01 - ACUTE RESPIRATORY FAILURE WITH HYPOXIA Status: Acute Current Visit: Yes (6) Pulmonary hypertension SNOMED Code(s): 55392354 Code(s): I27.20 - PULMONARY HYPERTENSION, UNSPECIFIED Status: Acute Current Visit: Yes (7) Full code status SNOMED Code(s): 793586946 Code(s): Z78.9 - OTHER SPECIFIED HEALTH STATUS Status: Acute Current Visit: Yes (8) Pneumonia due to COVID-19 virus SNOMED Code(s): 998298180953761475 Code(s): U07.1 - COVID-19; J12.82 - PNEUMONIA DUE TO CORONAVIRUS DISEASE 2019 Status: Acute Current Visit: Yes - Problem List Review Problem List Initiated/Reviewed/Updated: Yes - My Orders Last 24 Hours: My Active Orders 03/26/21 11:30 Insulin Aspart [NovoLOG] See Protocol SUBCUT QIDACANDBED 03/26/21 21:00 Insulin Glarg,Human.Rec.Analog [LantUS Solostar] 15 units SUBCUT BIDAC Melatonin 3 mg PO BEDTIME PRN - Assessment Assessment:: 81 yo female admitted with acute hypoxemic respiratory failure due to COVID-19 pneumonia Pt is now on 4-5 L NC and wean down as tolerated. Continue with incentive spirometry COVID 19 infection : treating with dexamethasone, remdesivir, Baricitinib and anticoagulation. DAMION home CPAP Q HS. DVT prophylaxis SQ lovenox. T2DM: on lantus and ssi. BG still elevated. Obesity Full code status. - Plan Plan:: 81 yo female admitted for COVID-19 pneumonia with acute respiratory failure hypoxia: on 4 L NC COVID: treating with dexamethasone, and remdesivir lovenox for DVT prophylaxis DM: on lantus and ssi
[2021-03-26] MEDS: REMDESIVIR 100 MG in Sodium Chloride 0.9% 100 ML IV SCH (14:28)
[2021-03-26] MEDS: cefTRIAXone 1 GM in Premix Bag 1 BAG IV SCH (16:18)
[2021-03-26] MEDS: Enoxaparin 40 MG/0.4 ML Syringe SUBCUT SCH (17:25)
[2021-03-26] MEDS: Azithromycin 500 MG in Sodium Chloride 0.9% 250 ML IV SCH (17:26)
[2021-03-27] MEDS: Albuterol/Ipratropium 4 GM Inhalation Spray INH SCH ×4 (00:23→17:17)
[2021-03-27] MEDS: Benzonatate 100 MG Cap PO PRN (05:33)
[2021-03-27 06:31] LABS: POTASSIUM,K 4.4 mmol/L (3.5-5.1)
[2021-03-27 06:41] LABS: CARBON DIOXIDE,CO2 25.6 mmol/L (21.0-32.0)
[2021-03-27] MEDS: Diltiazem 120 MG Cap.CD PO SCH (09:51)
[2021-03-27] MEDS: Furosemide 20 MG Tab PO SCH (09:52)
[2021-03-27] MEDS: Dexamethasone 4 MG Tab PO SCH (09:52)
[2021-03-27] MEDS: Insulin Aspart 100 Units/ML 3 ML Pen SUBCUT SCH ×4 (10:19→20:39)
[2021-03-27] MEDS: Insulin Glargine,Human Rec. Analog 100 Units/ML 3 ML Pen SUBCUT SCH ×2 (10:20→17:30)
[2021-03-27] MEDS: cefTRIAXone 1 GM in Premix Bag 1 BAG IV SCH (16:30)
[2021-03-27] MEDS: Azithromycin 500 MG in Sodium Chloride 0.9% 250 ML IV SCH (17:15)
[2021-03-27] MEDS: Enoxaparin 40 MG/0.4 ML Syringe SUBCUT SCH (17:17)
--- NOTE | 2021-03-27 17:54 | PCM.PN ---
- General Info Date of Service: 03/27/21 - Review of Systems Systems Review Comment:: feeling better, is anxious about going home, still short of breath and weak - Patient Data Vitals - Most Recent: Last Vital Signs Temp 36.5 C 03/27/21 12:00 Pulse 65 03/27/21 09:51 Resp 25 H 03/27/21 14:00 BP 156/71 H 03/27/21 14:00 Pulse Ox 93 L 03/27/21 14:00 Weight - Most Recent: 79 kg I&O - Last 24 Hours: Intake & Output 03/27/21 03/27/21 03/27/21 06:59 14:59 22:59 Intake Total 450 Output Total 850 1100 Balance -400 -1100 Lab Results Last 24 Hours: Laboratory Results - last 24 hr 03/26/21 03/26/21 03/27/21 Range/Units 17:34 22:03 05:40 WBC 10.55 (4.0-11.0) K/uL RBC 4.27 L (4.30-5.90) M/uL Hgb 12.1 (12.0-16.0) g/dL Hct 36.2 (36.0-46.0) % MCV 84.8 (80.0-98.0) fL MCH 28.3 (27.0-32.0) pg MCHC 33.4 (31.0-37.0) g/dL RDW Std Deviation 41.7 (28.0-62.0) fl RDW Coeff of Andree 14 (11.0-15.0) % Plt Count 219 (150-400) K/uL MPV 10.30 (7.40-12.00) fL Neut % (Auto) 83.8 H (48.0-80.0) % Lymph % (Auto) 9.7 L (16.0-40.0) % [place] % (Auto) 6.4 (0.0-15.0) % Eos % (Auto) 0.0 (0.0-7.0) % Baso % (Auto) 0.1 (0.0-1.5) % Neut # (Auto) 8.9 H (1.4-5.7) K/uL Lymph # (Auto) 1.0 (0.6-2.4) K/uL [place] # (Auto) 0.7 (0.0-0.8) K/uL Eos # (Auto) 0.0 (0.0-0.7) K/uL Baso # (Auto) 0.0 (0.0-0.1) K/uL Nucleated RBC % 0.0 /100WBC Nucleated RBCs # 0 K/uL Sodium (136-145) mmol/L Potassium (3.5-5.1) mmol/L Chloride (98-107) mmol/L Carbon Dioxide (21.0-32.0) mmol/L BUN (7.0-18.0) mg/dL Creatinine (0.6-1.0) mg/dL Est Cr Clr Drug Dosing mL/min Estimated GFR (MDRD) ml/min Glucose (74-106) mg/dL POC Glucose 264 H 317 H (70-99) mg/dL Calcium (8.5-10.1) mg/dL Total Bilirubin (0.2-1.0) mg/dL AST (15-37) IU/L ALT (14-63) IU/L Alkaline Phosphatase (46-116) U/L Total Protein (6.4-8.2) g/dL Albumin (3.4-5.0) g/dL Globulin (2.6-4.0) g/dL Albumin/Globulin Ratio (0.9-1.6) 03/27/21 03/27/21 03/27/21 Range/Units 05:40 05:40 10:11 WBC (4.0-11.0) K/uL RBC (4.30-5.90) M/uL Hgb (12.0-16.0) g/dL Hct (36.0-46.0) % MCV (80.0-98.0) fL MCH (27.0-32.0) pg MCHC (31.0-37.0) g/dL RDW Std Deviation (28.0-62.0) fl RDW Coeff of Andree (11.0-15.0) % Plt Count (150-400) K/uL MPV (7.40-12.00) fL Neut % (Auto) (48.0-80.0) % Lymph % (Auto) (16.0-40.0) % [place] % (Auto) (0.0-15.0) % Eos % (Auto) (0.0-7.0) % Baso % (Auto) (0.0-1.5) % Neut # (Auto) (1.4-5.7) K/uL Lymph # (Auto) (0.6-2.4) K/uL [place] # (Auto) (0.0-0.8) K/uL Eos # (Auto) (0.0-0.7) K/uL Baso # (Auto) (0.0-0.1) K/uL Nucleated RBC % /100WBC Nucleated RBCs # K/uL Sodium 137 (136-145) mmol/L Potassium 4.4 (3.5-5.1) mmol/L Chloride 104 (98-107) mmol/L Carbon Dioxide 25.6 (21.0-32.0) mmol/L BUN 51 H (7.0-18.0) mg/dL Creatinine 1.1 H (0.6-1.0) mg/dL Est Cr Clr Drug Dosing 32.60 mL/min Estimated GFR (MDRD) 47.4 ml/min Glucose 192 H (74-106) mg/dL POC Glucose 181 H 135 H (70-99) mg/dL Calcium 8.0 L (8.5-10.1) mg/dL Total Bilirubin 0.4 (0.2-1.0) mg/dL AST 21 (15-37) IU/L ALT 22 (14-63) IU/L Alkaline Phosphatase 95 (46-116) U/L Total Protein 7.0 (6.4-8.2) g/dL Albumin 2.2 L (3.4-5.0) g/dL Globulin 4.8 H (2.6-4.0) g/dL Albumin/Globulin Ratio 0.5 L (0.9-1.6) 03/27/21 03/27/21 Range/Units 13:03 16:53 WBC (4.0-11.0) K/uL RBC (4.30-5.90) M/uL Hgb (12.0-16.0) g/dL Hct (36.0-46.0) % MCV (80.0-98.0) fL MCH (27.0-32.0) pg MCHC (31.0-37.0) g/dL RDW Std Deviation (28.0-62.0) fl RDW Coeff of Andree (11.0-15.0) % Plt Count (150-400) K/uL MPV (7.40-12.00) fL Neut % (Auto) (48.0-80.0) % Lymph % (Auto) (16.0-40.0) % [place] % (Auto) (0.0-15.0) % Eos % (Auto) (0.0-7.0) % Baso % (Auto) (0.0-1.5) % Neut # (Auto) (1.4-5.7) K/uL Lymph # (Auto) (0.6-2.4) K/uL [place] # (Auto) (0.0-0.8) K/uL Eos # (Auto) (0.0-0.7) K/uL Baso # (Auto) (0.0-0.1) K/uL Nucleated RBC % /100WBC Nucleated RBCs # K/uL Sodium (136-145) mmol/L Potassium (3.5-5.1) mmol/L Chloride (98-107) mmol/L Carbon Dioxide (21.0-32.0) mmol/L BUN (7.0-18.0) mg/dL Creatinine (0.6-1.0) mg/dL Est Cr Clr Drug Dosing mL/min Estimated GFR (MDRD) ml/min Glucose (74-106) mg/dL POC Glucose 244 H 156 H (70-99) mg/dL Calcium (8.5-10.1) mg/dL Total Bilirubin (0.2-1.0) mg/dL AST (15-37) IU/L ALT (14-63) IU/L Alkaline Phosphatase (46-116) U/L Total Protein (6.4-8.2) g/dL Albumin (3.4-5.0) g/dL Globulin (2.6-4.0) g/dL Albumin/Globulin Ratio (0.9-1.6) Med Orders - Current: Current Medications Acetaminophen (Acetaminophen 325 Mg Tab) 650 mg PO Q4H PRN PRN Reason: Pain (Mild 1-3)/fever Albuterol/Ipratropium (Albuterol/Ipratropium 4 Gm Inhalation [place]) 1 gm INH QID [facility] Last Admin: 03/27/21 17:17 Dose: 1 puff Documented by: Baricitinib (Baricitinib 2 Mg Tab) 4 mg PO Q24H [facility] Last Admin: 03/27/21 12:58 Dose: 4 mg Documented by: Benzonatate (Benzonatate 100 Mg Cap) 100 mg PO Q6H PRN PRN Reason: Cough Last Admin: 03/27/21 05:33 Dose: 100 mg Documented by: Dexamethasone (Dexamethasone 4 Mg Tab) 6 mg PO DAILY [facility] Last Admin: 03/27/21 09:52 Dose: 6 mg Documented by: Dextrose/Water (50% Dextrose In Water 50 Ml Syringe) 50 ml IVPUSH ASDIRECTED PRN PRN Reason: Hypoglycemia Diltiazem HCl (Diltiazem 120 Mg Cap.Cd) 120 mg PO DAILY [facility] Last Admin: 03/27/21 09:51 Dose: 120 mg Documented by: Enoxaparin Sodium (Enoxaparin 40 Mg/0.4 Ml Syringe) 40 mg SUBCUT Q24H [facility] Last Admin: 03/27/21 17:17 Dose: 40 mg Documented by: Fluoxetine HCl (Fluoxetine 10 Mg Tab) 10 mg PO DAILY [facility] Last Admin: 03/27/21 09:51 Dose: 10 mg Documented by: Furosemide (Furosemide 20 Mg Tab) 20 mg PO DAILY [facility] Last Admin: 03/27/21 09:52 Dose: 20 mg Documented by: Glucagon (Glucagon,Human Recombinant 1 Mg Vial) 1 mg IM ASDIRECTED PRN PRN Reason: Hypoglycemia Ceftriaxone Sodium/Dextrose 1 (gm/ Premix) 50 mls @ 100 mls/hr IV Q24H [facility] Last Admin: 03/27/21 16:30 Dose: 100 mls/hr Documented by: Azithromycin 500 mg/ Sodium (Chloride) 250 mls @ 250 mls/hr IV Q24H [facility] Last Admin: 03/27/21 17:15 Dose: 250 mls/hr Documented by: Insulin Aspart (Insulin Aspart 100 Units/Ml 3 Ml Pen) 0 unit SUBCUT QIDACANDBED [facility]; Protocol Last Admin: 03/27/21 17:32 Dose: 1 unit Documented by: Insulin Glargine (Insulin Glargine,Human Rec. Analog 100 Units/Ml 3 Ml Pen) 15 units SUBCUT BIDAC [facility] Last Admin: 03/27/21 17:30 Dose: 15 units Documented by: Lorazepam (Lorazepam 0.5 Mg Tab) 0.25 mg PO Q4H PRN PRN Reason: Anxiety Last Admin: 03/26/21 00:29 Dose: 0.25 mg Documented by: Melatonin (Melatonin 3 Mg Tab) 3 mg PO BEDTIME PRN PRN Reason: Insomnia Valsartan (Valsartan 80 Mg Tab) 80 mg PO BID [facility] Last Admin: 03/27/21 09:51 Dose: 80 mg Documented by: Discontinued Medications Dexamethasone (Dexamethasone 10 Mg/Ml Sdv) 10 mg IVPUSH ONETIME ONE Stop: 03/22/21 13:14 Last Admin: 03/22/21 13:41 Dose: 10 mg Documented by: Remdesivir 200 mg/ Sodium (Chloride) 250 mls @ 250 mls/hr IV ONETIME ONE Stop: 03/22/21 14:33 Last Admin: 03/22/21 15:25 Dose: 250 mls/hr Documented by: Remdesivir 100 mg/ Sodium (Chloride) 100 mls @ 100 mls/hr IV Q24H [facility] Stop: 03/26/21 15:59 Last Admin: 03/26/21 14:28 Dose: 100 mls/hr Documented by: Insulin Aspart (Insulin Aspart 100 Units/Ml 3 Ml Pen) 0 unit SUBCUT TIDAC [facility]; Protocol Last Admin: 03/23/21 12:37 Dose: Not Given Documented by: Insulin Aspart (Insulin Aspart 100 Units/Ml 3 Ml Pen) 7 unit SUBCUT ONETIME ONE Stop: 03/23/21 00:49 Last Admin: 03/23/21 01:15 Dose: 7 units Documented by: Insulin Aspart (Insulin Aspart 100 Units/Ml 3 Ml Pen) 0 unit SUBCUT TIDAC [facility]; Protocol Last Admin: 03/24/21 18:37 Dose: 15 units Documented by: Insulin Aspart (Insulin Aspart 100 Units/Ml 3 Ml Pen) 0 unit SUBCUT QIDACANDBED [facility]; Protocol Last Admin: 03/26/21 09:32 Dose: Not Given Documented by: Insulin Glargine (Insulin Glargine,Human Rec. Analog 100 Units/Ml 3 Ml Pen) 6 units SUBCUT BEDTIME [facility] Last Admin: 03/22/21 20:27 Dose: 6 units Documented by: Insulin Glargine (Insulin Glargine,Human Rec. Analog 100 Units/Ml 3 Ml Pen) 10 units SUBCUT BID [facility] Last Admin: 03/24/21 09:06 Dose: 10 units Documented by: Insulin Glargine (Insulin Glargine,Human Rec. Analog 100 Units/Ml 3 Ml Pen) 14 units SUBCUT BID [facility] Insulin Glargine (Insulin Glargine,Human Rec. Analog 100 Units/Ml 3 Ml Pen) 20 units SUBCUT BID [facility] Last Admin: 03/26/21 09:33 Dose: Not Given Documented by: Iopamidol (Iopamidol 755 Mg/Ml 500 Ml Multipack Bottle) 100 ml IVPUSH ONETIME STA Stop: 03/22/21 16:26 Last Admin: 03/22/21 16:26 Dose: 100 ml Documented by: Levothyroxine Sodium (Levothyroxine 112 Mcg Tab) 112 mcg PO DAILY@0600 [facility] Last Admin: 03/24/21 06:42 Dose: 112 mcg Documented by: Lorazepam (Lorazepam 0.5 Mg Tab) 0.5 mg PO Q4H PRN PRN Reason: Anxiety Last Admin: 03/25/21 00:21 Dose: 0.5 mg Documented by: Non-Formulary Medication (Sacubitril/Valsartan [Entresto 97 Mg-103 Mg Tablet]) 97 - 103 mg PO BID [facility] Last Admin: 03/23/21 00:53 Dose: Not Given Documented by: Sildenafil 20 Mg Tab 0.5 each PO BID [facility] Last Admin: 03/25/21 13:49 Dose: Not Given Documented by: - Exam General: Alert, Oriented Neck: Supple Lungs: Clear to Auscultation, Normal Respiratory Effort Cardiovascular: Regular Rate, Regular Rhythm GI/Abdominal Exam: Normal Bowel Sounds, Soft, Non-Tender Extremities: Non-Tender, No Pedal Edema Skin: Warm, Dry, Intact Neurological: No New Focal Deficit - Patient Data Lab Results Last 24 hrs: Laboratory Results - last 24 hr 03/26/21 03/26/21 03/27/21 Range/Units 17:34 22:03 05:40 WBC 10.55 (4.0-11.0) K/uL RBC 4.27 L (4.30-5.90) M/uL Hgb 12.1 (12.0-16.0) g/dL Hct 36.2 (36.0-46.0) % MCV 84.8 (80.0-98.0) fL MCH 28.3 (27.0-32.0) pg MCHC 33.4 (31.0-37.0) g/dL RDW Std Deviation 41.7 (28.0-62.0) fl RDW Coeff of Andree 14 (11.0-15.0) % Plt Count 219 (150-400) K/uL MPV 10.30 (7.40-12.00) fL Neut % (Auto) 83.8 H (48.0-80.0) % Lymph % (Auto) 9.7 L (16.0-40.0) % [place] % (Auto) 6.4 (0.0-15.0) % Eos % (Auto) 0.0 (0.0-7.0) % Baso % (Auto) 0.1 (0.0-1.5) % Neut # (Auto) 8.9 H (1.4-5.7) K/uL Lymph # (Auto) 1.0 (0.6-2.4) K/uL [place] # (Auto) 0.7 (0.0-0.8) K/uL Eos # (Auto) 0.0 (0.0-0.7) K/uL Baso # (Auto) 0.0 (0.0-0.1) K/uL Nucleated RBC % 0.0 /100WBC Nucleated RBCs # 0 K/uL Sodium (136-145) mmol/L Potassium (3.5-5.1) mmol/L Chloride (98-107) mmol/L Carbon Dioxide (21.0-32.0) mmol/L BUN (7.0-18.0) mg/dL Creatinine (0.6-1.0) mg/dL Est Cr Clr Drug Dosing mL/min Estimated GFR (MDRD) ml/min Glucose (74-106) mg/dL POC Glucose 264 H 317 H (70-99) mg/dL Calcium (8.5-10.1) mg/dL Total Bilirubin (0.2-1.0) mg/dL AST (15-37) IU/L ALT (14-63) IU/L Alkaline Phosphatase (46-116) U/L Total Protein (6.4-8.2) g/dL Albumin (3.4-5.0) g/dL Globulin (2.6-4.0) g/dL Albumin/Globulin Ratio (0.9-1.6) 03/27/21 03/27/21 03/27/21 Range/Units 05:40 05:40 10:11 WBC (4.0-11.0) K/uL RBC (4.30-5.90) M/uL Hgb (12.0-16.0) g/dL Hct (36.0-46.0) % MCV (80.0-98.0) fL MCH (27.0-32.0) pg MCHC (31.0-37.0) g/dL RDW Std Deviation (28.0-62.0) fl RDW Coeff of Andree (11.0-15.0) % Plt Count (150-400) K/uL MPV (7.40-12.00) fL Neut % (Auto) (48.0-80.0) % Lymph % (Auto) (16.0-40.0) % [place] % (Auto) (0.0-15.0) % Eos % (Auto) (0.0-7.0) % Baso % (Auto) (0.0-1.5) % Neut # (Auto) (1.4-5.7) K/uL Lymph # (Auto) (0.6-2.4) K/uL [place] # (Auto) (0.0-0.8) K/uL Eos # (Auto) (0.0-0.7) K/uL Baso # (Auto) (0.0-0.1) K/uL Nucleated RBC % /100WBC Nucleated RBCs # K/uL Sodium 137 (136-145) mmol/L Potassium 4.4 (3.5-5.1) mmol/L Chloride 104 (98-107) mmol/L Carbon Dioxide 25.6 (21.0-32.0) mmol/L BUN 51 H (7.0-18.0) mg/dL Creatinine 1.1 H (0.6-1.0) mg/dL Est Cr Clr Drug Dosing 32.60 mL/min Estimated GFR (MDRD) 47.4 ml/min Glucose 192 H (74-106) mg/dL POC Glucose 181 H 135 H (70-99) mg/dL Calcium 8.0 L (8.5-10.1) mg/dL Total Bilirubin 0.4 (0.2-1.0) mg/dL AST 21 (15-37) IU/L ALT 22 (14-63) IU/L Alkaline Phosphatase 95 (46-116) U/L Total Protein 7.0 (6.4-8.2) g/dL Albumin 2.2 L (3.4-5.0) g/dL Globulin 4.8 H (2.6-4.0) g/dL Albumin/Globulin Ratio 0.5 L (0.9-1.6) 03/27/21 03/27/21 Range/Units 13:03 16:53 WBC (4.0-11.0) K/uL RBC (4.30-5.90) M/uL Hgb (12.0-16.0) g/dL Hct (36.0-46.0) % MCV (80.0-98.0) fL MCH (27.0-32.0) pg MCHC (31.0-37.0) g/dL RDW Std Deviation (28.0-62.0) fl RDW Coeff of Andree (11.0-15.0) % Plt Count (150-400) K/uL MPV (7.40-12.00) fL Neut % (Auto) (48.0-80.0) % Lymph % (Auto) (16.0-40.0) % [place] % (Auto) (0.0-15.0) % Eos % (Auto) (0.0-7.0) % Baso % (Auto) (0.0-1.5) % Neut # (Auto) (1.4-5.7) K/uL Lymph # (Auto) (0.6-2.4) K/uL [place] # (Auto) (0.0-0.8) K/uL Eos # (Auto) (0.0-0.7) K/uL Baso # (Auto) (0.0-0.1) K/uL Nucleated RBC % /100WBC Nucleated RBCs # K/uL Sodium (136-145) mmol/L Potassium (3.5-5.1) mmol/L Chloride (98-107) mmol/L Carbon Dioxide (21.0-32.0) mmol/L BUN (7.0-18.0) mg/dL Creatinine (0.6-1.0) mg/dL Est Cr Clr Drug Dosing mL/min Estimated GFR (MDRD) ml/min Glucose (74-106) mg/dL POC Glucose 244 H 156 H (70-99) mg/dL Calcium (8.5-10.1) mg/dL Total Bilirubin (0.2-1.0) mg/dL AST (15-37) IU/L ALT (14-63) IU/L Alkaline Phosphatase (46-116) U/L Total Protein (6.4-8.2) g/dL Albumin (3.4-5.0) g/dL Globulin (2.6-4.0) g/dL Albumin/Globulin Ratio (0.9-1.6) Result Diagrams: 03/27/21 05:40 03/27/21 05:40 Sepsis Event Note - Evaluation Sepsis Screening Result: No Definite Risk - Focused Exam Vital Signs: Vital Signs Temp Pulse Resp BP BP Pulse Ox Pulse Ox 03/27/21 14:00 25 H 156/71 H 93 L 03/27/21 13:00 21 H 165/74 H 94 L 93 L 03/27/21 12:00 36.5 C 23 H 157/71 H 91 L 03/27/21 11:00 24 H 153/79 H 94 L 03/27/21 10:00 18 166/77 H 95 03/27/21 09:51 65 160/80 H 03/27/21 09:00 11 L 160/80 H 81 L 03/27/21 08:00 36.0 C L 22 H 161/68 H 93 L 03/27/21 07:00 19 147/67 H 90 L 03/27/21 06:00 23 H 151/63 H 89 L - Problem List & Annotations (1) COVID-19 SNOMED Code(s): 728238766 Code(s): U07.1 - COVID-19 Status: Acute Current Visit: No (2) Hypoxia SNOMED Code(s): 992694105 Code(s): R09.02 - HYPOXEMIA Status: Acute Current Visit: No - Problem List Review Problem List Initiated/Reviewed/Updated: Yes - My Orders Last 24 Hours: My Active Orders 03/27/21 14:48 Transfer Patient (Change bed) [ADT] Routine - Plan Plan:: 81 yo female admitted for COVID-19 pneumonia with acute respiratory failure hypoxia: on 3 L NC COVID: treating with dexamethasone, and barcitinib, finished remdesivir also on rocephin and azithromycin lovenox for DVT prophylaxis DM: on lantus and ssi will transfer out of ICU to medr floor
[2021-03-28] MEDS: Benzonatate 100 MG Cap PO PRN (00:21)
[2021-03-28] MEDS: Albuterol/Ipratropium 4 GM Inhalation Spray INH SCH ×5 (00:21→23:30)
[2021-03-28] MEDS: Melatonin 3 MG Tab PO PRN (00:21)
[2021-03-28 07:37] LABS: CARBON DIOXIDE,CO2 24.6 mmol/L (21.0-32.0); POTASSIUM,K 4.5 mmol/L (3.5-5.1)
[2021-03-28] MEDS: Insulin Glargine,Human Rec. Analog 100 Units/ML 3 ML Pen SUBCUT SCH ×2 (08:38→18:16)
[2021-03-28] MEDS: Insulin Aspart 100 Units/ML 3 ML Pen SUBCUT SCH ×4 (08:39→20:28)
[2021-03-28] MEDS: Dexamethasone 4 MG Tab PO SCH (08:41)
[2021-03-28] MEDS: Furosemide 20 MG Tab PO SCH (08:44)
[2021-03-28] MEDS: Diltiazem 120 MG Cap.CD PO SCH (08:44)
[2021-03-28] MEDS: cefTRIAXone 1 GM in Premix Bag 1 BAG IV SCH (15:07)
--- NOTE | 2021-03-28 15:13 | PCM.PN ---
- General Info Date of Service: 03/28/21 - Patient Data Vitals - Most Recent: Last Vital Signs Temp 35.7 C L 03/28/21 12:00 Pulse 66 03/28/21 12:00 Resp 22 H 03/28/21 12:00 BP 173/72 H 03/28/21 12:00 Pulse Ox 95 03/28/21 13:00 Weight - Most Recent: 79 kg I&O - Last 24 Hours: Intake & Output 03/28/21 03/28/21 03/28/21 06:59 14:59 22:59 Intake Total 500 Balance 500 Lab Results Last 24 Hours: Laboratory Results - last 24 hr 03/27/21 03/27/21 03/28/21 Range/Units 16:53 20:35 06:20 WBC 9.40 (4.0-11.0) K/uL RBC 4.34 (4.30-5.90) M/uL Hgb 12.2 (12.0-16.0) g/dL Hct 36.9 (36.0-46.0) % MCV 85.0 (80.0-98.0) fL MCH 28.1 (27.0-32.0) pg MCHC 33.1 (31.0-37.0) g/dL RDW Std Deviation 41.5 (28.0-62.0) fl RDW Coeff of Andree 13 (11.0-15.0) % Plt Count 218 (150-400) K/uL MPV 10.50 (7.40-12.00) fL Neut % (Auto) 86.3 H (48.0-80.0) % Lymph % (Auto) 8.0 L (16.0-40.0) % [place] % (Auto) 5.7 (0.0-15.0) % Eos % (Auto) 0.0 (0.0-7.0) % Baso % (Auto) 0.0 (0.0-1.5) % Neut # (Auto) 8.1 H (1.4-5.7) K/uL Lymph # (Auto) 0.8 (0.6-2.4) K/uL [place] # (Auto) 0.5 (0.0-0.8) K/uL Eos # (Auto) 0.0 (0.0-0.7) K/uL Baso # (Auto) 0.0 (0.0-0.1) K/uL Nucleated RBC % 0.0 /100WBC Nucleated RBCs # 0 K/uL Sodium (136-145) mmol/L Potassium (3.5-5.1) mmol/L Chloride (98-107) mmol/L Carbon Dioxide (21.0-32.0) mmol/L BUN (7.0-18.0) mg/dL Creatinine (0.6-1.0) mg/dL Est Cr Clr Drug Dosing mL/min Estimated GFR (MDRD) ml/min Glucose (74-106) mg/dL POC Glucose 156 H 328 H (70-99) mg/dL Calcium (8.5-10.1) mg/dL Total Bilirubin (0.2-1.0) mg/dL AST (15-37) IU/L ALT (14-63) IU/L Alkaline Phosphatase (46-116) U/L Total Protein (6.4-8.2) g/dL Albumin (3.4-5.0) g/dL Globulin (2.6-4.0) g/dL Albumin/Globulin Ratio (0.9-1.6) 03/28/21 03/28/21 03/28/21 Range/Units 06:20 06:37 12:06 WBC (4.0-11.0) K/uL RBC (4.30-5.90) M/uL Hgb (12.0-16.0) g/dL Hct (36.0-46.0) % MCV (80.0-98.0) fL MCH (27.0-32.0) pg MCHC (31.0-37.0) g/dL RDW Std Deviation (28.0-62.0) fl RDW Coeff of Andree (11.0-15.0) % Plt Count (150-400) K/uL MPV (7.40-12.00) fL Neut % (Auto) (48.0-80.0) % Lymph % (Auto) (16.0-40.0) % [place] % (Auto) (0.0-15.0) % Eos % (Auto) (0.0-7.0) % Baso % (Auto) (0.0-1.5) % Neut # (Auto) (1.4-5.7) K/uL Lymph # (Auto) (0.6-2.4) K/uL [place] # (Auto) (0.0-0.8) K/uL Eos # (Auto) (0.0-0.7) K/uL Baso # (Auto) (0.0-0.1) K/uL Nucleated RBC % /100WBC Nucleated RBCs # K/uL Sodium 136 (136-145) mmol/L Potassium 4.5 (3.5-5.1) mmol/L Chloride 103 (98-107) mmol/L Carbon Dioxide 24.6 (21.0-32.0) mmol/L BUN 50 H (7.0-18.0) mg/dL Creatinine 1.1 H (0.6-1.0) mg/dL Est Cr Clr Drug Dosing 32.60 mL/min Estimated GFR (MDRD) 47.4 ml/min Glucose 231 H (74-106) mg/dL POC Glucose 186 H 421 H* (70-99) mg/dL Calcium 8.1 L (8.5-10.1) mg/dL Total Bilirubin 0.6 (0.2-1.0) mg/dL AST 15 (15-37) IU/L ALT 21 (14-63) IU/L Alkaline Phosphatase 89 (46-116) U/L Total Protein 6.9 (6.4-8.2) g/dL Albumin 2.2 L (3.4-5.0) g/dL Globulin 4.7 H (2.6-4.0) g/dL Albumin/Globulin Ratio 0.5 L (0.9-1.6) Med Orders - Current: Current Medications Acetaminophen (Acetaminophen 325 Mg Tab) 650 mg PO Q4H PRN PRN Reason: Pain (Mild 1-3)/fever Albuterol/Ipratropium (Albuterol/Ipratropium 4 Gm Inhalation [place]) 1 gm INH QID [facility] Last Admin: 03/28/21 11:15 Dose: 1 puff Documented by: Baricitinib (Baricitinib 2 Mg Tab) 4 mg PO Q24H [facility] Last Admin: 03/28/21 13:33 Dose: 4 mg Documented by: Benzonatate (Benzonatate 100 Mg Cap) 100 mg PO Q6H PRN PRN Reason: Cough Last Admin: 03/28/21 00:21 Dose: 100 mg Documented by: Dexamethasone (Dexamethasone 4 Mg Tab) 6 mg PO DAILY [facility] Last Admin: 03/28/21 08:41 Dose: 6 mg Documented by: Dextrose/Water (50% Dextrose In Water 50 Ml Syringe) 50 ml IVPUSH ASDIRECTED PRN PRN Reason: Hypoglycemia Diltiazem HCl (Diltiazem 120 Mg Cap.Cd) 120 mg PO DAILY [facility] Last Admin: 03/28/21 08:44 Dose: 120 mg Documented by: Enoxaparin Sodium (Enoxaparin 40 Mg/0.4 Ml Syringe) 40 mg SUBCUT Q24H [facility] Last Admin: 03/27/21 17:17 Dose: 40 mg Documented by: Fluoxetine HCl (Fluoxetine 10 Mg Tab) 10 mg PO DAILY [facility] Last Admin: 03/28/21 08:41 Dose: 10 mg Documented by: Furosemide (Furosemide 20 Mg Tab) 20 mg PO DAILY [facility] Last Admin: 03/28/21 08:44 Dose: 20 mg Documented by: Glucagon (Glucagon,Human Recombinant 1 Mg Vial) 1 mg IM ASDIRECTED PRN PRN Reason: Hypoglycemia Ceftriaxone Sodium/Dextrose 1 (gm/ Premix) 50 mls @ 100 mls/hr IV Q24H [facility] Last Admin: 03/28/21 15:07 Dose: 100 mls/hr Documented by: Azithromycin 500 mg/ Sodium (Chloride) 250 mls @ 250 mls/hr IV Q24H [facility] Last Admin: 03/27/21 17:15 Dose: 250 mls/hr Documented by: Insulin Aspart (Insulin Aspart 100 Units/Ml 3 Ml Pen) 0 unit SUBCUT QIDACANDBED [facility]; Protocol Last Admin: 03/28/21 12:34 Dose: 10 unit Documented by: Insulin Glargine (Insulin Glargine,Human Rec. Analog 100 Units/Ml 3 Ml Pen) 15 units SUBCUT BIDAC [facility] Last Admin: 03/28/21 08:38 Dose: 15 units Documented by: Lorazepam (Lorazepam 0.5 Mg Tab) 0.25 mg PO Q4H PRN PRN Reason: Anxiety Last Admin: 03/26/21 00:29 Dose: 0.25 mg Documented by: Melatonin (Melatonin 3 Mg Tab) 3 mg PO BEDTIME PRN PRN Reason: Insomnia Last Admin: 03/28/21 00:21 Dose: 3 mg Documented by: Valsartan (Valsartan 80 Mg Tab) 80 mg PO BID [facility] Last Admin: 03/28/21 08:44 Dose: 80 mg Documented by: Discontinued Medications Dexamethasone (Dexamethasone 10 Mg/Ml Sdv) 10 mg IVPUSH ONETIME ONE Stop: 03/22/21 13:14 Last Admin: 03/22/21 13:41 Dose: 10 mg Documented by: Remdesivir 200 mg/ Sodium (Chloride) 250 mls @ 250 mls/hr IV ONETIME ONE Stop: 03/22/21 14:33 Last Admin: 03/22/21 15:25 Dose: 250 mls/hr Documented by: Remdesivir 100 mg/ Sodium (Chloride) 100 mls @ 100 mls/hr IV Q24H [facility] Stop: 03/26/21 15:59 Last Admin: 03/26/21 14:28 Dose: 100 mls/hr Documented by: Insulin Aspart (Insulin Aspart 100 Units/Ml 3 Ml Pen) 0 unit SUBCUT TIDAC [facility]; Protocol Last Admin: 03/23/21 12:37 Dose: Not Given Documented by: Insulin Aspart (Insulin Aspart 100 Units/Ml 3 Ml Pen) 7 unit SUBCUT ONETIME ONE Stop: 03/23/21 00:49 Last Admin: 03/23/21 01:15 Dose: 7 units Documented by: Insulin Aspart (Insulin Aspart 100 Units/Ml 3 Ml Pen) 0 unit SUBCUT TIDAC [facility]; Protocol Last Admin: 03/24/21 18:37 Dose: 15 units Documented by: Insulin Aspart (Insulin Aspart 100 Units/Ml 3 Ml Pen) 0 unit SUBCUT QIDACANDBED [facility]; Protocol Last Admin: 03/26/21 09:32 Dose: Not Given Documented by: Insulin Glargine (Insulin Glargine,Human Rec. Analog 100 Units/Ml 3 Ml Pen) 6 units SUBCUT BEDTIME [facility] Last Admin: 03/22/21 20:27 Dose: 6 units Documented by: Insulin Glargine (Insulin Glargine,Human Rec. Analog 100 Units/Ml 3 Ml Pen) 10 units SUBCUT BID [facility] Last Admin: 03/24/21 09:06 Dose: 10 units Documented by: Insulin Glargine (Insulin Glargine,Human Rec. Analog 100 Units/Ml 3 Ml Pen) 14 units SUBCUT BID [facility] Insulin Glargine (Insulin Glargine,Human Rec. Analog 100 Units/Ml 3 Ml Pen) 20 units SUBCUT BID [facility] Last Admin: 03/26/21 09:33 Dose: Not Given Documented by: Iopamidol (Iopamidol 755 Mg/Ml 500 Ml Multipack Bottle) 100 ml IVPUSH ONETIME STA Stop: 03/22/21 16:26 Last Admin: 03/22/21 16:26 Dose: 100 ml Documented by: Levothyroxine Sodium (Levothyroxine 112 Mcg Tab) 112 mcg PO DAILY@0600 [facility] Last Admin: 03/24/21 06:42 Dose: 112 mcg Documented by: Lorazepam (Lorazepam 0.5 Mg Tab) 0.5 mg PO Q4H PRN PRN Reason: Anxiety Last Admin: 03/25/21 00:21 Dose: 0.5 mg Documented by: Non-Formulary Medication (Sacubitril/Valsartan [Entresto 97 Mg-103 Mg Tablet]) 97 - 103 mg PO BID [facility] Last Admin: 03/23/21 00:53 Dose: Not Given Documented by: Sildenafil 20 Mg Tab 0.5 each PO BID [facility] Last Admin: 03/25/21 13:49 Dose: Not Given Documented by: - Exam General: Alert, Oriented Lungs: Clear to Auscultation, Normal Respiratory Effort Cardiovascular: Regular Rate, Regular Rhythm GI/Abdominal Exam: Normal Bowel Sounds, Soft, Non-Tender - Patient Data Lab Results Last 24 hrs: Laboratory Results - last 24 hr 03/27/21 03/27/21 03/28/21 Range/Units 16:53 20:35 06:20 WBC 9.40 (4.0-11.0) K/uL RBC 4.34 (4.30-5.90) M/uL Hgb 12.2 (12.0-16.0) g/dL Hct 36.9 (36.0-46.0) % MCV 85.0 (80.0-98.0) fL MCH 28.1 (27.0-32.0) pg MCHC 33.1 (31.0-37.0) g/dL RDW Std Deviation 41.5 (28.0-62.0) fl RDW Coeff of Andree 13 (11.0-15.0) % Plt Count 218 (150-400) K/uL MPV 10.50 (7.40-12.00) fL Neut % (Auto) 86.3 H (48.0-80.0) % Lymph % (Auto) 8.0 L (16.0-40.0) % [place] % (Auto) 5.7 (0.0-15.0) % Eos % (Auto) 0.0 (0.0-7.0) % Baso % (Auto) 0.0 (0.0-1.5) % Neut # (Auto) 8.1 H (1.4-5.7) K/uL Lymph # (Auto) 0.8 (0.6-2.4) K/uL [place] # (Auto) 0.5 (0.0-0.8) K/uL Eos # (Auto) 0.0 (0.0-0.7) K/uL Baso # (Auto) 0.0 (0.0-0.1) K/uL Nucleated RBC % 0.0 /100WBC Nucleated RBCs # 0 K/uL Sodium (136-145) mmol/L Potassium (3.5-5.1) mmol/L Chloride (98-107) mmol/L Carbon Dioxide (21.0-32.0) mmol/L BUN (7.0-18.0) mg/dL Creatinine (0.6-1.0) mg/dL Est Cr Clr Drug Dosing mL/min Estimated GFR (MDRD) ml/min Glucose (74-106) mg/dL POC Glucose 156 H 328 H (70-99) mg/dL Calcium (8.5-10.1) mg/dL Total Bilirubin (0.2-1.0) mg/dL AST (15-37) IU/L ALT (14-63) IU/L Alkaline Phosphatase (46-116) U/L Total Protein (6.4-8.2) g/dL Albumin (3.4-5.0) g/dL Globulin (2.6-4.0) g/dL Albumin/Globulin Ratio (0.9-1.6) 03/28/21 03/28/21 03/28/21 Range/Units 06:20 06:37 12:06 WBC (4.0-11.0) K/uL RBC (4.30-5.90) M/uL Hgb (12.0-16.0) g/dL Hct (36.0-46.0) % MCV (80.0-98.0) fL MCH (27.0-32.0) pg MCHC (31.0-37.0) g/dL RDW Std Deviation (28.0-62.0) fl RDW Coeff of Andree (11.0-15.0) % Plt Count (150-400) K/uL MPV (7.40-12.00) fL Neut % (Auto) (48.0-80.0) % Lymph % (Auto) (16.0-40.0) % [place] % (Auto) (0.0-15.0) % Eos % (Auto) (0.0-7.0) % Baso % (Auto) (0.0-1.5) % Neut # (Auto) (1.4-5.7) K/uL Lymph # (Auto) (0.6-2.4) K/uL [place] # (Auto) (0.0-0.8) K/uL Eos # (Auto) (0.0-0.7) K/uL Baso # (Auto) (0.0-0.1) K/uL Nucleated RBC % /100WBC Nucleated RBCs # K/uL Sodium 136 (136-145) mmol/L Potassium 4.5 (3.5-5.1) mmol/L Chloride 103 (98-107) mmol/L Carbon Dioxide 24.6 (21.0-32.0) mmol/L BUN 50 H (7.0-18.0) mg/dL Creatinine 1.1 H (0.6-1.0) mg/dL Est Cr Clr Drug Dosing 32.60 mL/min Estimated GFR (MDRD) 47.4 ml/min Glucose 231 H (74-106) mg/dL POC Glucose 186 H 421 H* (70-99) mg/dL Calcium 8.1 L (8.5-10.1) mg/dL Total Bilirubin 0.6 (0.2-1.0) mg/dL AST 15 (15-37) IU/L ALT 21 (14-63) IU/L Alkaline Phosphatase 89 (46-116) U/L Total Protein 6.9 (6.4-8.2) g/dL Albumin 2.2 L (3.4-5.0) g/dL Globulin 4.7 H (2.6-4.0) g/dL Albumin/Globulin Ratio 0.5 L (0.9-1.6) Result Diagrams: 03/28/21 06:20 03/28/21 06:20 Sepsis Event Note - Evaluation Sepsis Screening Result: No Definite Risk - Focused Exam Vital Signs: Vital Signs Temp Pulse Pulse Resp BP BP Pulse Ox 03/28/21 13:00 03/28/21 12:00 35.7 C L 66 22 H 173/72 H 92 L 03/28/21 08:44 67 178/81 H 03/28/21 08:26 36.3 C 65 22 H 193/88 H 95 03/28/21 04:27 36.1 C 64 16 171/78 H 97 Pulse Ox 03/28/21 13:00 95 03/28/21 12:00 03/28/21 08:44 03/28/21 08:26 03/28/21 04:27 - Problem List & Annotations (1) COVID-19 SNOMED Code(s): 875520979 Code(s): U07.1 - COVID-19 Status: Acute Current Visit: No (2) Hypoxia SNOMED Code(s): 605927106 Code(s): R09.02 - HYPOXEMIA Status: Acute Current Visit: No - Problem List Review Problem List Initiated/Reviewed/Updated: Yes - My Orders Last 24 Hours: My Active Orders 03/27/21 14:48 Transfer Patient (Change bed) [ADT] Routine 03/29/21 05:11 CBC WITH AUTO DIFF [HEME] AM COMPREHENSIVE METABOLIC PN,CMP [CHEM] AM 03/30/21 05:11 CBC WITH AUTO DIFF [HEME] AM COMPREHENSIVE METABOLIC PN,CMP [CHEM] AM 03/31/21 05:11 CBC WITH AUTO DIFF [HEME] AM COMPREHENSIVE METABOLIC PN,CMP [CHEM] AM 04/01/21 05:11 CBC WITH AUTO DIFF [HEME] AM COMPREHENSIVE METABOLIC PN,CMP [CHEM] AM 04/02/21 05:11 CBC WITH AUTO DIFF [HEME] AM COMPREHENSIVE METABOLIC PN,CMP [CHEM] AM - Plan Plan:: 81 yo female admitted for COVID-19 pneumonia with acute respiratory failure hypoxia: on 2 L NC COVID: treating with dexamethasone, and barcitinib, finished remdesivir also on Rocephin and azithromycin lovenox for DVT prophylaxis DM: on lantus and ssi
[2021-03-28] MEDS: Enoxaparin 40 MG/0.4 ML Syringe SUBCUT SCH (18:18)
[2021-03-28] MEDS: Azithromycin 500 MG in Sodium Chloride 0.9% 250 ML IV SCH (18:22)
[2021-03-29] MEDS: Melatonin 3 MG Tab PO PRN ×2 (01:12→23:56)
[2021-03-29] MEDS: Benzonatate 100 MG Cap PO PRN ×2 (01:12→23:56)
[2021-03-29] MEDS: Albuterol/Ipratropium 4 GM Inhalation Spray INH SCH ×4 (06:16→23:56)
[2021-03-29 07:59] LABS: CARBON DIOXIDE,CO2 25.4 mmol/L (21.0-32.0); POTASSIUM,K 4.4 mmol/L (3.5-5.1)
[2021-03-29] MEDS: Insulin Glargine,Human Rec. Analog 100 Units/ML 3 ML Pen SUBCUT SCH ×2 (09:11→18:01)
[2021-03-29] MEDS: Insulin Aspart 100 Units/ML 3 ML Pen SUBCUT SCH ×4 (09:12→21:04)
[2021-03-29] MEDS: Diltiazem 120 MG Cap.CD PO SCH (09:14)
[2021-03-29] MEDS: Furosemide 20 MG Tab PO SCH (09:14)
[2021-03-29] MEDS: Dexamethasone 4 MG Tab PO SCH (09:14)
--- NOTE | 2021-03-29 11:47 | PCM.PN ---
- General Info Date of Service: 03/29/21 - Review of Systems Systems Review Comment:: reports shortness of breath with walking, - Patient Data Vitals - Most Recent: Last Vital Signs Temp 36.1 C 03/29/21 07:00 Pulse 67 03/29/21 09:14 Resp 16 03/29/21 07:00 BP 146/69 H 03/29/21 09:14 Pulse Ox 97 03/29/21 07:00 Weight - Most Recent: 79 kg I&O - Last 24 Hours: Intake & Output 03/28/21 03/29/21 03/29/21 22:59 06:59 14:59 Intake Total 510 550 Output Total 1200 375 Balance -690 175 Lab Results Last 24 Hours: Laboratory Results - last 24 hr 03/28/21 03/28/21 03/28/21 Range/Units 12:06 17:30 20:26 WBC (4.0-11.0) K/uL RBC (4.30-5.90) M/uL Hgb (12.0-16.0) g/dL Hct (36.0-46.0) % MCV (80.0-98.0) fL MCH (27.0-32.0) pg MCHC (31.0-37.0) g/dL RDW Std Deviation (28.0-62.0) fl RDW Coeff of Andree (11.0-15.0) % Plt Count (150-400) K/uL MPV (7.40-12.00) fL Neut % (Auto) (48.0-80.0) % Lymph % (Auto) (16.0-40.0) % [place] % (Auto) (0.0-15.0) % Eos % (Auto) (0.0-7.0) % Baso % (Auto) (0.0-1.5) % Neut # (Auto) (1.4-5.7) K/uL Lymph # (Auto) (0.6-2.4) K/uL [place] # (Auto) (0.0-0.8) K/uL Eos # (Auto) (0.0-0.7) K/uL Baso # (Auto) (0.0-0.1) K/uL Nucleated RBC % /100WBC Nucleated RBCs # K/uL Sodium (136-145) mmol/L Potassium (3.5-5.1) mmol/L Chloride (98-107) mmol/L Carbon Dioxide (21.0-32.0) mmol/L BUN (7.0-18.0) mg/dL Creatinine (0.6-1.0) mg/dL Est Cr Clr Drug Dosing mL/min Estimated GFR (MDRD) ml/min Glucose (74-106) mg/dL POC Glucose 421 H* 301 H 254 H (70-99) mg/dL Calcium (8.5-10.1) mg/dL Total Bilirubin (0.2-1.0) mg/dL AST (15-37) IU/L ALT (14-63) IU/L Alkaline Phosphatase (46-116) U/L Total Protein (6.4-8.2) g/dL Albumin (3.4-5.0) g/dL Globulin (2.6-4.0) g/dL Albumin/Globulin Ratio (0.9-1.6) 03/29/21 03/29/21 03/29/21 Range/Units 06:11 06:20 06:20 WBC 11.94 H (4.0-11.0) K/uL RBC 4.37 (4.30-5.90) M/uL Hgb 12.4 (12.0-16.0) g/dL Hct 36.9 (36.0-46.0) % MCV 84.4 (80.0-98.0) fL MCH 28.4 (27.0-32.0) pg MCHC 33.6 (31.0-37.0) g/dL RDW Std Deviation 40.5 (28.0-62.0) fl RDW Coeff of Andree 13 (11.0-15.0) % Plt Count 223 (150-400) K/uL MPV 10.90 (7.40-12.00) fL Neut % (Auto) 86.9 H (48.0-80.0) % Lymph % (Auto) 7.4 L (16.0-40.0) % [place] % (Auto) 5.6 (0.0-15.0) % Eos % (Auto) 0.1 (0.0-7.0) % Baso % (Auto) 0.0 (0.0-1.5) % Neut # (Auto) 10.4 H (1.4-5.7) K/uL Lymph # (Auto) 0.9 (0.6-2.4) K/uL [place] # (Auto) 0.7 (0.0-0.8) K/uL Eos # (Auto) 0.0 (0.0-0.7) K/uL Baso # (Auto) 0.0 (0.0-0.1) K/uL Nucleated RBC % 0.0 /100WBC Nucleated RBCs # 0 K/uL Sodium 138 (136-145) mmol/L Potassium 4.4 (3.5-5.1) mmol/L Chloride 102 (98-107) mmol/L Carbon Dioxide 25.4 (21.0-32.0) mmol/L BUN 47 H (7.0-18.0) mg/dL Creatinine 1.2 H (0.6-1.0) mg/dL Est Cr Clr Drug Dosing 29.88 mL/min Estimated GFR (MDRD) 42.9 ml/min Glucose 114 H (74-106) mg/dL POC Glucose 106 H (70-99) mg/dL Calcium 8.6 (8.5-10.1) mg/dL Total Bilirubin 0.7 (0.2-1.0) mg/dL AST 15 (15-37) IU/L ALT 24 (14-63) IU/L Alkaline Phosphatase 79 (46-116) U/L Total Protein 6.9 (6.4-8.2) g/dL Albumin 2.3 L (3.4-5.0) g/dL Globulin 4.6 H (2.6-4.0) g/dL Albumin/Globulin Ratio 0.5 L (0.9-1.6) 03/29/21 Range/Units 11:35 WBC (4.0-11.0) K/uL RBC (4.30-5.90) M/uL Hgb (12.0-16.0) g/dL Hct (36.0-46.0) % MCV (80.0-98.0) fL MCH (27.0-32.0) pg MCHC (31.0-37.0) g/dL RDW Std Deviation (28.0-62.0) fl RDW Coeff of Andree (11.0-15.0) % Plt Count (150-400) K/uL MPV (7.40-12.00) fL Neut % (Auto) (48.0-80.0) % Lymph % (Auto) (16.0-40.0) % [place] % (Auto) (0.0-15.0) % Eos % (Auto) (0.0-7.0) % Baso % (Auto) (0.0-1.5) % Neut # (Auto) (1.4-5.7) K/uL Lymph # (Auto) (0.6-2.4) K/uL [place] # (Auto) (0.0-0.8) K/uL Eos # (Auto) (0.0-0.7) K/uL Baso # (Auto) (0.0-0.1) K/uL Nucleated RBC % /100WBC Nucleated RBCs # K/uL Sodium (136-145) mmol/L Potassium (3.5-5.1) mmol/L Chloride (98-107) mmol/L Carbon Dioxide (21.0-32.0) mmol/L BUN (7.0-18.0) mg/dL Creatinine (0.6-1.0) mg/dL Est Cr Clr Drug Dosing mL/min Estimated GFR (MDRD) ml/min Glucose (74-106) mg/dL POC Glucose 259 H (70-99) mg/dL Calcium (8.5-10.1) mg/dL Total Bilirubin (0.2-1.0) mg/dL AST (15-37) IU/L ALT (14-63) IU/L Alkaline Phosphatase (46-116) U/L Total Protein (6.4-8.2) g/dL Albumin (3.4-5.0) g/dL Globulin (2.6-4.0) g/dL Albumin/Globulin Ratio (0.9-1.6) Med Orders - Current: Current Medications Acetaminophen (Acetaminophen 325 Mg Tab) 650 mg PO Q4H PRN PRN Reason: Pain (Mild 1-3)/fever Albuterol/Ipratropium (Albuterol/Ipratropium 4 Gm Inhalation [place]) 1 gm INH QID [facility] Last Admin: 03/29/21 11:23 Dose: 1 puff Documented by: Baricitinib (Baricitinib 2 Mg Tab) 4 mg PO Q24H [facility] Last Admin: 03/28/21 13:33 Dose: 4 mg Documented by: Benzonatate (Benzonatate 100 Mg Cap) 100 mg PO Q6H PRN PRN Reason: Cough Last Admin: 03/29/21 01:12 Dose: 100 mg Documented by: Dexamethasone (Dexamethasone 4 Mg Tab) 6 mg PO DAILY [facility] Last Admin: 03/29/21 09:14 Dose: 6 mg Documented by: Dextrose/Water (50% Dextrose In Water 50 Ml Syringe) 50 ml IVPUSH ASDIRECTED PRN PRN Reason: Hypoglycemia Diltiazem HCl (Diltiazem 120 Mg Cap.Cd) 120 mg PO DAILY [facility] Last Admin: 03/29/21 09:14 Dose: 120 mg Documented by: Enoxaparin Sodium (Enoxaparin 40 Mg/0.4 Ml Syringe) 40 mg SUBCUT Q24H [facility] Last Admin: 03/28/21 18:18 Dose: 40 mg Documented by: Fluoxetine HCl (Fluoxetine 10 Mg Tab) 10 mg PO DAILY [facility] Last Admin: 03/29/21 09:14 Dose: 10 mg Documented by: Furosemide (Furosemide 20 Mg Tab) 20 mg PO DAILY [facility] Last Admin: 03/29/21 09:14 Dose: 20 mg Documented by: Glucagon (Glucagon,Human Recombinant 1 Mg Vial) 1 mg IM ASDIRECTED PRN PRN Reason: Hypoglycemia Insulin Aspart (Insulin Aspart 100 Units/Ml 3 Ml Pen) 0 unit SUBCUT QIDACANDBED [facility]; Protocol Last Admin: 03/29/21 09:12 Dose: Not Given Documented by: Insulin Glargine (Insulin Glargine,Human Rec. Analog 100 Units/Ml 3 Ml Pen) 15 units SUBCUT BIDAC [facility] Last Admin: 03/29/21 09:11 Dose: 15 units Documented by: Lorazepam (Lorazepam 0.5 Mg Tab) 0.25 mg PO Q4H PRN PRN Reason: Anxiety Last Admin: 03/26/21 00:29 Dose: 0.25 mg Documented by: Melatonin (Melatonin 3 Mg Tab) 3 mg PO BEDTIME PRN PRN Reason: Insomnia Last Admin: 03/29/21 01:12 Dose: 3 mg Documented by: Valsartan (Valsartan 80 Mg Tab) 80 mg PO BID [facility] Last Admin: 03/29/21 09:13 Dose: 80 mg Documented by: Discontinued Medications Dexamethasone (Dexamethasone 10 Mg/Ml Sdv) 10 mg IVPUSH ONETIME ONE Stop: 03/22/21 13:14 Last Admin: 03/22/21 13:41 Dose: 10 mg Documented by: Remdesivir 200 mg/ Sodium (Chloride) 250 mls @ 250 mls/hr IV ONETIME ONE Stop: 03/22/21 14:33 Last Admin: 03/22/21 15:25 Dose: 250 mls/hr Documented by: Remdesivir 100 mg/ Sodium (Chloride) 100 mls @ 100 mls/hr IV Q24H [facility] Stop: 03/26/21 15:59 Last Admin: 03/26/21 14:28 Dose: 100 mls/hr Documented by: Ceftriaxone Sodium/Dextrose 1 (gm/ Premix) 50 mls @ 100 mls/hr IV Q24H [facility] Last Admin: 03/28/21 15:07 Dose: 100 mls/hr Documented by: Azithromycin 500 mg/ Sodium (Chloride) 250 mls @ 250 mls/hr IV Q24H [facility] Last Admin: 03/28/21 18:22 Dose: 250 mls/hr Documented by: Insulin Aspart (Insulin Aspart 100 Units/Ml 3 Ml Pen) 0 unit SUBCUT TIDAC [facility]; Protocol Last Admin: 03/23/21 12:37 Dose: Not Given Documented by: Insulin Aspart (Insulin Aspart 100 Units/Ml 3 Ml Pen) 7 unit SUBCUT ONETIME ONE Stop: 03/23/21 00:49 Last Admin: 03/23/21 01:15 Dose: 7 units Documented by: Insulin Aspart (Insulin Aspart 100 Units/Ml 3 Ml Pen) 0 unit SUBCUT TIDAC [facility]; Protocol Last Admin: 03/24/21 18:37 Dose: 15 units Documented by: Insulin Aspart (Insulin Aspart 100 Units/Ml 3 Ml Pen) 0 unit SUBCUT QIDACANDBED [facility]; Protocol Last Admin: 03/26/21 09:32 Dose: Not Given Documented by: Insulin Glargine (Insulin Glargine,Human Rec. Analog 100 Units/Ml 3 Ml Pen) 6 units SUBCUT BEDTIME [facility] Last Admin: 03/22/21 20:27 Dose: 6 units Documented by: Insulin Glargine (Insulin Glargine,Human Rec. Analog 100 Units/Ml 3 Ml Pen) 10 units SUBCUT BID [facility] Last Admin: 03/24/21 09:06 Dose: 10 units Documented by: Insulin Glargine (Insulin Glargine,Human Rec. Analog 100 Units/Ml 3 Ml Pen) 14 units SUBCUT BID [facility] Insulin Glargine (Insulin Glargine,Human Rec. Analog 100 Units/Ml 3 Ml Pen) 20 units SUBCUT BID [facility] Last Admin: 03/26/21 09:33 Dose: Not Given Documented by: Iopamidol (Iopamidol 755 Mg/Ml 500 Ml Multipack Bottle) 100 ml IVPUSH ONETIME STA Stop: 03/22/21 16:26 Last Admin: 03/22/21 16:26 Dose: 100 ml Documented by: Levothyroxine Sodium (Levothyroxine 112 Mcg Tab) 112 mcg PO DAILY@0600 [facility] Last Admin: 03/24/21 06:42 Dose: 112 mcg Documented by: Lorazepam (Lorazepam 0.5 Mg Tab) 0.5 mg PO Q4H PRN PRN Reason: Anxiety Last Admin: 03/25/21 00:21 Dose: 0.5 mg Documented by: Non-Formulary Medication (Sacubitril/Valsartan [Entresto 97 Mg-103 Mg Tablet]) 97 - 103 mg PO BID [facility] Last Admin: 03/23/21 00:53 Dose: Not Given Documented by: Sildenafil 20 Mg Tab 0.5 each PO BID [facility] Last Admin: 03/25/21 13:49 Dose: Not Given Documented by: - Exam General: Alert, Oriented Neck: Supple Lungs: Clear to Auscultation, Normal Respiratory Effort Cardiovascular: Regular Rate, Regular Rhythm GI/Abdominal Exam: Normal Bowel Sounds, Soft, Non-Tender Extremities: Non-Tender, No Pedal Edema Skin: Warm, Dry, Intact Neurological: No New Focal Deficit - Patient Data Lab Results Last 24 hrs: Laboratory Results - last 24 hr 03/28/21 03/28/21 03/28/21 Range/Units 12:06 17:30 20:26 WBC (4.0-11.0) K/uL RBC (4.30-5.90) M/uL Hgb (12.0-16.0) g/dL Hct (36.0-46.0) % MCV (80.0-98.0) fL MCH (27.0-32.0) pg MCHC (31.0-37.0) g/dL RDW Std Deviation (28.0-62.0) fl RDW Coeff of Andree (11.0-15.0) % Plt Count (150-400) K/uL MPV (7.40-12.00) fL Neut % (Auto) (48.0-80.0) % Lymph % (Auto) (16.0-40.0) % [place] % (Auto) (0.0-15.0) % Eos % (Auto) (0.0-7.0) % Baso % (Auto) (0.0-1.5) % Neut # (Auto) (1.4-5.7) K/uL Lymph # (Auto) (0.6-2.4) K/uL [place] # (Auto) (0.0-0.8) K/uL Eos # (Auto) (0.0-0.7) K/uL Baso # (Auto) (0.0-0.1) K/uL Nucleated RBC % /100WBC Nucleated RBCs # K/uL Sodium (136-145) mmol/L Potassium (3.5-5.1) mmol/L Chloride (98-107) mmol/L Carbon Dioxide (21.0-32.0) mmol/L BUN (7.0-18.0) mg/dL Creatinine (0.6-1.0) mg/dL Est Cr Clr Drug Dosing mL/min Estimated GFR (MDRD) ml/min Glucose (74-106) mg/dL POC Glucose 421 H* 301 H 254 H (70-99) mg/dL Calcium (8.5-10.1) mg/dL Total Bilirubin (0.2-1.0) mg/dL AST (15-37) IU/L ALT (14-63) IU/L Alkaline Phosphatase (46-116) U/L Total Protein (6.4-8.2) g/dL Albumin (3.4-5.0) g/dL Globulin (2.6-4.0) g/dL Albumin/Globulin Ratio (0.9-1.6) 03/29/21 03/29/2103/29/21 Range/Units 06:11 06:20 06:20 WBC 11.94 H (4.0-11.0) K/uL RBC 4.37 (4.30-5.90) M/uL Hgb 12.4 (12.0-16.0) g/dL Hct 36.9 (36.0-46.0) % MCV 84.4 (80.0-98.0) fL MCH 28.4 (27.0-32.0) pg MCHC 33.6 (31.0-37.0) g/dL RDW Std Deviation 40.5 (28.0-62.0) fl RDW Coeff of Andree 13 (11.0-15.0) % Plt Count 223 (150-400) K/uL MPV 10.90 (7.40-12.00) fL Neut % (Auto) 86.9 H (48.0-80.0) % Lymph % (Auto) 7.4 L (16.0-40.0) % [place] % (Auto) 5.6 (0.0-15.0) % Eos % (Auto) 0.1 (0.0-7.0) % Baso % (Auto) 0.0 (0.0-1.5) % Neut # (Auto) 10.4 H (1.4-5.7) K/uL Lymph # (Auto) 0.9 (0.6-2.4) K/uL [place] # (Auto) 0.7 (0.0-0.8) K/uL Eos # (Auto) 0.0 (0.0-0.7) K/uL Baso # (Auto) 0.0 (0.0-0.1) K/uL Nucleated RBC % 0.0 /100WBC Nucleated RBCs # 0 K/uL Sodium 138 (136-145) mmol/L Potassium 4.4 (3.5-5.1) mmol/L Chloride 102 (98-107) mmol/L Carbon Dioxide 25.4 (21.0-32.0) mmol/L BUN 47 H (7.0-18.0) mg/dL Creatinine 1.2 H (0.6-1.0) mg/dL Est Cr Clr Drug Dosing 29.88 mL/min Estimated GFR (MDRD) 42.9 ml/min Glucose 114 H (74-106) mg/dL POC Glucose 106 H (70-99) mg/dL Calcium 8.6 (8.5-10.1) mg/dL Total Bilirubin 0.7 (0.2-1.0) mg/dL AST 15 (15-37) IU/L ALT 24 (14-63) IU/L Alkaline Phosphatase 79 (46-116) U/L Total Protein 6.9 (6.4-8.2) g/dL Albumin 2.3 L (3.4-5.0) g/dL Globulin 4.6 H (2.6-4.0) g/dL Albumin/Globulin Ratio 0.5 L (0.9-1.6) 03/29/21 Range/Units 11:35 WBC (4.0-11.0) K/uL RBC (4.30-5.90) M/uL Hgb (12.0-16.0) g/dL Hct (36.0-46.0) % MCV (80.0-98.0) fL MCH (27.0-32.0) pg MCHC (31.0-37.0) g/dL RDW Std Deviation (28.0-62.0) fl RDW Coeff of Andree (11.0-15.0) % Plt Count (150-400) K/uL MPV (7.40-12.00) fL Neut % (Auto) (48.0-80.0) % Lymph % (Auto) (16.0-40.0) % [place] % (Auto) (0.0-15.0) % Eos % (Auto) (0.0-7.0) % Baso % (Auto) (0.0-1.5) % Neut # (Auto) (1.4-5.7) K/uL Lymph # (Auto) (0.6-2.4) K/uL [place] # (Auto) (0.0-0.8) K/uL Eos # (Auto) (0.0-0.7) K/uL Baso # (Auto) (0.0-0.1) K/uL Nucleated RBC % /100WBC Nucleated RBCs # K/uL Sodium (136-145) mmol/L Potassium (3.5-5.1) mmol/L Chloride (98-107) mmol/L Carbon Dioxide (21.0-32.0) mmol/L BUN (7.0-18.0) mg/dL Creatinine (0.6-1.0) mg/dL Est Cr Clr Drug Dosing mL/min Estimated GFR (MDRD) ml/min Glucose (74-106) mg/dL POC Glucose 259 H (70-99) mg/dL Calcium (8.5-10.1) mg/dL Total Bilirubin (0.2-1.0) mg/dL AST (15-37) IU/L ALT (14-63) IU/L Alkaline Phosphatase (46-116) U/L Total Protein (6.4-8.2) g/dL Albumin (3.4-5.0) g/dL Globulin (2.6-4.0) g/dL Albumin/Globulin Ratio (0.9-1.6) Result Diagrams: 03/29/21 06:20 03/29/21 06:20 Sepsis Event Note - Evaluation Sepsis Screening Result: No Definite Risk - Focused Exam Vital Signs: Vital Signs Temp Pulse Pulse Resp BP BP Pulse Ox 03/29/21 09:14 67 146/69 H 03/29/21 09:13 146/69 H 03/29/21 07:00 36.1 C 67 16 146/69 H 97 03/29/21 03:28 36.6 C 73 18 156/73 H 95 - Problem List & Annotations (1) COVID-19 SNOMED Code(s): 672174095 Code(s): U07.1 - COVID-19 Status: Acute Current Visit: No (2) Hypoxia SNOMED Code(s): 712145218 Code(s): R09.02 - HYPOXEMIA Status: Acute Current Visit: No - Problem List Review Problem List Initiated/Reviewed/Updated: Yes - My Orders Last 24 Hours: My Active Orders 03/30/21 05:11 CBC WITH AUTO DIFF [HEME] AM COMPREHENSIVE METABOLIC PN,CMP [CHEM] AM 03/31/21 05:11 CBC WITH AUTO DIFF [HEME] AM COMPREHENSIVE METABOLIC PN,CMP [CHEM] AM 04/01/21 05:11 CBC WITH AUTO DIFF [HEME] AM COMPREHENSIVE METABOLIC PN,CMP [CHEM] AM 12/12/21 05:11 CBC WITH AUTO DIFF [HEME] AM COMPREHENSIVE METABOLIC PN,CMP [CHEM] AM - Assessment Assessment:: Full code status. - Plan Plan:: 81 yo female admitted for COVID-19 pneumonia with acute respiratory failure hypoxia: on 1 L NC COVID: treating with dexamethasone, and barcitinib, finished remdesivir will d/c Rocephin and azithromycin lovenox for DVT prophylaxis DM: on lantus and ssi
[2021-03-29] MEDS: Enoxaparin 40 MG/0.4 ML Syringe SUBCUT SCH (18:02)
[2021-03-30] MEDS: Albuterol/Ipratropium 4 GM Inhalation Spray INH SCH ×4 (06:41→23:50)
[2021-03-30 06:48] LABS: CARBON DIOXIDE,CO2 26.5 mmol/L (21.0-32.0); POTASSIUM,K 4.4 mmol/L (3.5-5.1)
[2021-03-30] MEDS: Insulin Glargine,Human Rec. Analog 100 Units/ML 3 ML Pen SUBCUT SCH ×2 (08:47→17:43)
[2021-03-30] MEDS: Insulin Aspart 100 Units/ML 3 ML Pen SUBCUT SCH ×4 (08:48→21:03)
[2021-03-30] MEDS: Furosemide 20 MG Tab PO SCH (08:50)
[2021-03-30] MEDS: Dexamethasone 4 MG Tab PO SCH (08:51)
[2021-03-30] MEDS: Diltiazem 120 MG Cap.CD PO SCH (08:51)
[2021-03-30] MEDS ORDERED: LORazepam 1 MG Tab PO ONE (10:54)
--- NOTE | 2021-03-30 11:28 | PCM.PN ---
- General Info Date of Service: 03/30/21 Subjective Update: The patient is a 81-year-old female, on day 9 of service, who has a significant past medical history of coronary artery disease, pacemaker placement, hyperlipidemia, chronic obstructive pulmonary disease, hypothyroidism, and diabetes mellitus type 2, who is currently in the intensive care unit for acute respiratory failure secondary to COVID-19 pneumonia. Even though the patient is doing much better in regards to her oxygen demand, right now she is saturating 95% on 1 L of oxygen, she continues to have extreme anxiety when it comes to the prospect of going home without any care around her. She was supposed to be discharged today while being placed on 2 L of oxygen at home via [employer] but has requested to stay until her son who lives in [place] comes home who will be living with her and acting as her commercial glazier. This is anticipated to happen this weekend. For her anxiety we will give her a one-time pill of Ativan 1 mg in hopes to decrease her fears. She has no other health concerns at this time. - Review of Systems General: Reports: Weakness, Fatigue. Denies: Fever HEENT: Denies: Headaches Pulmonary: Reports: Shortness of Breath. Denies: Cough Cardiovascular: Denies: Chest Pain, Palpitations Gastrointestinal: Denies: Abdominal Pain, Nausea, Vomiting Genitourinary: Denies: Dysuria Psychiatric: Reports: Anxiety - Patient Data Vitals - Most Recent: Last Vital Signs Temp 97.3 F 03/30/21 07:00 Pulse 60 03/30/21 08:51 Resp 16 03/30/21 07:00 BP 134/62 03/30/21 08:51 Pulse Ox 98 03/30/21 07:00 Weight - Most Recent: 174 lb I&O - Last 24 Hours: Intake & Output 03/29/21 03/30/21 03/30/21 22:59 06:59 14:59 Intake Total 560 600 Output Total 900 4 Balance -340 596 Lab Results Last 24 Hours: Laboratory Results - last 24 hr 03/29/21 03/29/21 03/29/21 Range/Units 11:35 17:59 20:59 WBC (4.0-11.0) K/uL RBC (4.30-5.90) M/uL Hgb (12.0-16.0) g/dL Hct (36.0-46.0) % MCV (80.0-98.0) fL MCH (27.0-32.0) pg MCHC (31.0-37.0) g/dL RDW Std Deviation (28.0-62.0) fl RDW Coeff of Andree (11.0-15.0) % Plt Count (150-400) K/uL MPV (7.40-12.00) fL Neut % (Auto) (48.0-80.0) % Lymph % (Auto) (16.0-40.0) % [place] % (Auto) (0.0-15.0) % Eos % (Auto) (0.0-7.0) % Baso % (Auto) (0.0-1.5) % Neut # (Auto) (1.4-5.7) K/uL Lymph # (Auto) (0.6-2.4) K/uL [place] # (Auto) (0.0-0.8) K/uL Eos # (Auto) (0.0-0.7) K/uL Baso # (Auto) (0.0-0.1) K/uL Nucleated RBC % /100WBC Nucleated RBCs # K/uL Sodium (136-145) mmol/L Potassium (3.5-5.1) mmol/L Chloride (98-107) mmol/L Carbon Dioxide (21.0-32.0) mmol/L BUN (7.0-18.0) mg/dL Creatinine (0.6-1.0) mg/dL Est Cr Clr Drug Dosing mL/min Estimated GFR (MDRD) ml/min Glucose (74-106) mg/dL POC Glucose 259 H 224 H 381 H (70-99) mg/dL Calcium (8.5-10.1) mg/dL Total Bilirubin (0.2-1.0) mg/dL AST (15-37) IU/L ALT (14-63) IU/L Alkaline Phosphatase (46-116) U/L Total Protein (6.4-8.2) g/dL Albumin (3.4-5.0) g/dL Globulin (2.6-4.0) g/dL Albumin/Globulin Ratio (0.9-1.6) 03/30/21 03/30/21 03/30/21 Range/Units 05:53 05:53 06:34 WBC 10.68 (4.0-11.0) K/uL RBC 4.30 (4.30-5.90) M/uL Hgb 12.2 (12.0-16.0) g/dL Hct 36.0 (36.0-46.0) % MCV 83.7 (80.0-98.0) fL MCH 28.4 (27.0-32.0) pg MCHC 33.9 (31.0-37.0) g/dL RDW Std Deviation 39.9 (28.0-62.0) fl RDW Coeff of Andree 13 (11.0-15.0) % Plt Count 205 (150-400) K/uL MPV 10.50 (7.40-12.00) fL Neut % (Auto) 86.8 H (48.0-80.0) % Lymph % (Auto) 6.8 L (16.0-40.0) % [place] % (Auto) 6.4 (0.0-15.0) % Eos % (Auto) 0.0 (0.0-7.0) % Baso % (Auto) 0.0 (0.0-1.5) % Neut # (Auto) 9.3 H (1.4-5.7) K/uL Lymph # (Auto) 0.7 (0.6-2.4) K/uL [place] # (Auto) 0.7 (0.0-0.8) K/uL Eos # (Auto) 0.0 (0.0-0.7) K/uL Baso # (Auto) 0.0 (0.0-0.1) K/uL Nucleated RBC % 0.0 /100WBC Nucleated RBCs # 0 K/uL Sodium 136 (136-145) mmol/L Potassium 4.4 (3.5-5.1) mmol/L Chloride 103 (98-107) mmol/L Carbon Dioxide 26.5 (21.0-32.0) mmol/L BUN 48 H (7.0-18.0) mg/dL Creatinine 1.1 H (0.6-1.0) mg/dL Est Cr Clr Drug Dosing 32.60 mL/min Estimated GFR (MDRD) 47.4 ml/min Glucose 108 H (74-106) mg/dL POC Glucose 101 H (70-99) mg/dL Calcium 8.2 L (8.5-10.1) mg/dL Total Bilirubin 0.9 (0.2-1.0) mg/dL AST 15 (15-37) IU/L ALT 21 (14-63) IU/L Alkaline Phosphatase 76 (46-116) U/L Total Protein 6.7 (6.4-8.2) g/dL Albumin 2.3 L (3.4-5.0) g/dL Globulin 4.4 H (2.6-4.0) g/dL Albumin/Globulin Ratio 0.5 L (0.9-1.6) Med Orders - Current: Current Medications Acetaminophen (Acetaminophen 325 Mg Tab) 650 mg PO Q4H PRN PRN Reason: Pain (Mild 1-3)/fever Albuterol/Ipratropium (Albuterol/Ipratropium 4 Gm Inhalation [place]) 1 gm INH QID [facility] Last Admin: 03/30/21 06:41 Dose: 1 puff Documented by: Baricitinib (Baricitinib 2 Mg Tab) 4 mg PO Q24H [facility] Last Admin: 03/29/21 13:05 Dose: 4 mg Documented by: Benzonatate (Benzonatate 100 Mg Cap) 100 mg PO Q6H PRN PRN Reason: Cough Last Admin: 03/29/21 23:56 Dose: 100 mg Documented by: Dexamethasone (Dexamethasone 4 Mg Tab) 6 mg PO DAILY [facility] Last Admin: 03/30/21 08:51 Dose: 6 mg Documented by: Dextrose/Water (50% Dextrose In Water 50 Ml Syringe) 50 ml IVPUSH ASDIRECTED PRN PRN Reason: Hypoglycemia Diltiazem HCl (Diltiazem 120 Mg Cap.Cd) 120 mg PO DAILY [facility] Last Admin: 03/30/21 08:51 Dose: 120 mg Documented by: Enoxaparin Sodium (Enoxaparin 40 Mg/0.4 Ml Syringe) 40 mg SUBCUT Q24H [facility] Last Admin: 03/29/21 18:02 Dose: 40 mg Documented by: Fluoxetine HCl (Fluoxetine 10 Mg Tab) 10 mg PO DAILY [facility] Last Admin: 03/30/21 08:50 Dose: 10 mg Documented by: Furosemide (Furosemide 20 Mg Tab) 20 mg PO DAILY [facility] Last Admin: 03/30/21 08:50 Dose: 20 mg Documented by: Glucagon (Glucagon,Human Recombinant 1 Mg Vial) 1 mg IM ASDIRECTED PRN PRN Reason: Hypoglycemia Insulin Aspart (Insulin Aspart 100 Units/Ml 3 Ml Pen) 0 unit SUBCUT QIDACANDBED [facility]; Protocol Last Admin: 03/30/21 08:48 Dose: Not Given Documented by: Insulin Glargine (Insulin Glargine,Human Rec. Analog 100 Units/Ml 3 Ml Pen) 15 units SUBCUT BIDAC [facility] Last Admin: 03/30/21 08:47 Dose: 15 units Documented by: Lorazepam (Lorazepam 0.5 Mg Tab) 0.25 mg PO Q4H PRN PRN Reason: Anxiety Last Admin: 03/26/21 00:29 Dose: 0.25 mg Documented by: Melatonin (Melatonin 3 Mg Tab) 3 mg PO BEDTIME PRN PRN Reason: Insomnia Last Admin: 03/29/21 23:56 Dose: 3 mg Documented by: Valsartan (Valsartan 80 Mg Tab) 80 mg PO BID [facility] Last Admin: 03/30/21 08:50 Dose: 80 mg Documented by: Discontinued Medications Dexamethasone (Dexamethasone 10 Mg/Ml Sdv) 10 mg IVPUSH ONETIME ONE Stop: 03/22/21 13:14 Last Admin: 03/22/21 13:41 Dose: 10 mg Documented by: Remdesivir 200 mg/ Sodium (Chloride) 250 mls @ 250 mls/hr IV ONETIME ONE Stop: 03/22/21 14:33 Last Admin: 03/22/21 15:25 Dose: 250 mls/hr Documented by: Remdesivir 100 mg/ Sodium (Chloride) 100 mls @ 100 mls/hr IV Q24H [facility] Stop: 03/26/21 15:59 Last Admin: 03/26/21 14:28 Dose: 100 mls/hr Documented by: Ceftriaxone Sodium/Dextrose 1 (gm/ Premix) 50 mls @ 100 mls/hr IV Q24H [facility] Last Admin: 03/28/21 15:07 Dose: 100 mls/hr Documented by: Azithromycin 500 mg/ Sodium (Chloride) 250 mls @ 250 mls/hr IV Q24H [facility] Last Admin: 03/28/21 18:22 Dose: 250 mls/hr Documented by: Insulin Aspart (Insulin Aspart 100 Units/Ml 3 Ml Pen) 0 unit SUBCUT TIDAC [facility]; Protocol Last Admin: 03/23/21 12:37 Dose: Not Given Documented by: Insulin Aspart (Insulin Aspart 100 Units/Ml 3 Ml Pen) 7 unit SUBCUT ONETIME ONE Stop: 03/23/21 00:49 Last Admin: 03/23/21 01:15 Dose: 7 units Documented by: Insulin Aspart (Insulin Aspart 100 Units/Ml 3 Ml Pen) 0 unit SUBCUT TIDAC [facility]; Protocol Last Admin: 03/24/21 18:37 Dose: 15 units Documented by: Insulin Aspart (Insulin Aspart 100 Units/Ml 3 Ml Pen) 0 unit SUBCUT QIDACANDBED [facility]; Protocol Last Admin: 03/26/21 09:32 Dose: Not Given Documented by: Insulin Glargine (Insulin Glargine,Human Rec. Analog 100 Units/Ml 3 Ml Pen) 6 units SUBCUT BEDTIME [facility] Last Admin: 03/22/21 20:27 Dose: 6 units Documented by: Insulin Glargine (Insulin Glargine,Human Rec. Analog 100 Units/Ml 3 Ml Pen) 10 units SUBCUT BID [facility] Last Admin: 03/24/21 09:06 Dose: 10 units Documented by: Insulin Glargine (Insulin Glargine,Human Rec. Analog 100 Units/Ml 3 Ml Pen) 14 units SUBCUT BID [facility] Insulin Glargine (Insulin Glargine,Human Rec. Analog 100 Units/Ml 3 Ml Pen) 20 units SUBCUT BID [facility] Last Admin: 03/26/21 09:33 Dose: Not Given Documented by: Iopamidol (Iopamidol 755 Mg/Ml 500 Ml Multipack Bottle) 100 ml IVPUSH ONETIME STA Stop: 03/22/21 16:26 Last Admin: 03/22/21 16:26 Dose: 100 ml Documented by: Levothyroxine Sodium (Levothyroxine 112 Mcg Tab) 112 mcg PO DAILY@0600 [facility] Last Admin: 03/24/21 06:42 Dose: 112 mcg Documented by: Lorazepam (Lorazepam 0.5 Mg Tab) 0.5 mg PO Q4H PRN PRN Reason: Anxiety Last Admin: 03/25/21 00:21 Dose: 0.5 mg Documented by: Lorazepam (Lorazepam 1 Mg Tab) 1 mg PO ONETIME ONE Stop: 03/30/21 10:55 Non-Formulary Medication (Sacubitril/Valsartan [Entresto 97 Mg-103 Mg Tablet]) 97 - 103 mg PO BID [facility] Last Admin: 03/23/21 00:53 Dose: Not Given Documented by: Sildenafil 20 Mg Tab 0.5 each PO BID [facility] Last Admin: 03/25/21 13:49 Dose: Not Given Documented by: - Exam General: Alert, Oriented, Cooperative HEENT: Mucous Membr. Moist/[place] Neck: Trachea Midline Lungs: Clear to Auscultation, Normal Respiratory Effort Cardiovascular: Bradycardia GI/Abdominal Exam: Normal Bowel Sounds, Soft, Non-Tender Psy/Mental Status: Anxious - Patient Data Lab Results Last 24 hrs: Laboratory Results - last 24 hr 03/29/21 03/29/21 03/29/21 Range/Units 11:35 17:59 20:59 WBC (4.0-11.0) K/uL RBC (4.30-5.90) M/uL Hgb (12.0-16.0) g/dL Hct (36.0-46.0) % MCV (80.0-98.0) fL MCH (27.0-32.0) pg MCHC (31.0-37.0) g/dL RDW Std Deviation (28.0-62.0) fl RDW Coeff of Andree (11.0-15.0) % Plt Count (150-400) K/uL MPV (7.40-12.00) fL Neut % (Auto) (48.0-80.0) % Lymph % (Auto) (16.0-40.0) % [place] % (Auto) (0.0-15.0) % Eos % (Auto) (0.0-7.0) % Baso % (Auto) (0.0-1.5) % Neut # (Auto) (1.4-5.7) K/uL Lymph # (Auto) (0.6-2.4) K/uL [place] # (Auto) (0.0-0.8) K/uL Eos # (Auto) (0.0-0.7) K/uL Baso # (Auto) (0.0-0.1) K/uL Nucleated RBC % /100WBC Nucleated RBCs # K/uL Sodium (136-145) mmol/L Potassium (3.5-5.1) mmol/L Chloride (98-107) mmol/L Carbon Dioxide (21.0-32.0) mmol/L BUN (7.0-18.0) mg/dL Creatinine (0.6-1.0) mg/dL Est Cr Clr Drug Dosing mL/min Estimated GFR (MDRD) ml/min Glucose (74-106) mg/dL POC Glucose 259 H 224 H 381 H (70-99) mg/dL Calcium (8.5-10.1) mg/dL Total Bilirubin (0.2-1.0) mg/dL AST (15-37) IU/L ALT (14-63) IU/L Alkaline Phosphatase (46-116) U/L Total Protein (6.4-8.2) g/dL Albumin (3.4-5.0) g/dL Globulin (2.6-4.0) g/dL Albumin/Globulin Ratio (0.9-1.6) 03/30/21 03/30/21 03/30/21 Range/Units 05:53 05:53 06:34 WBC 10.68 (4.0-11.0) K/uL RBC 4.30 (4.30-5.90) M/uL Hgb 12.2 (12.0-16.0) g/dL Hct 36.0 (36.0-46.0) % MCV 83.7 (80.0-98.0) fL MCH 28.4 (27.0-32.0) pg MCHC 33.9 (31.0-37.0) g/dL RDW Std Deviation 39.9 (28.0-62.0) fl RDW Coeff of Andree 13 (11.0-15.0) % Plt Count 205 (150-400) K/uL MPV 10.50 (7.40-12.00) fL Neut % (Auto) 86.8 H (48.0-80.0) % Lymph % (Auto) 6.8 L (16.0-40.0) % [place] % (Auto) 6.4 (0.0-15.0) % Eos % (Auto) 0.0 (0.0-7.0) % Baso % (Auto) 0.0 (0.0-1.5) % Neut # (Auto) 9.3 H (1.4-5.7) K/uL Lymph # (Auto) 0.7 (0.6-2.4) K/uL [place] # (Auto) 0.7 (0.0-0.8) K/uL Eos # (Auto) 0.0 (0.0-0.7) K/uL Baso # (Auto) 0.0 (0.0-0.1) K/uL Nucleated RBC % 0.0 /100WBC Nucleated RBCs # 0 K/uL Sodium 136 (136-145) mmol/L Potassium 4.4 (3.5-5.1) mmol/L Chloride 103 (98-107) mmol/L Carbon Dioxide 26.5 (21.0-32.0) mmol/L BUN 48 H (7.0-18.0) mg/dL Creatinine 1.1 H (0.6-1.0) mg/dL Est Cr Clr Drug Dosing 32.60 mL/min Estimated GFR (MDRD) 47.4 ml/min Glucose 108 H (74-106) mg/dL POC Glucose 101 H (70-99) mg/dL Calcium 8.2 L (8.5-10.1) mg/dL Total Bilirubin 0.9 (0.2-1.0) mg/dL AST 15 (15-37) IU/L ALT 21 (14-63) IU/L Alkaline Phosphatase 76 (46-116) U/L Total Protein 6.7 (6.4-8.2) g/dL Albumin 2.3 L (3.4-5.0) g/dL Globulin 4.4 H (2.6-4.0) g/dL Albumin/Globulin Ratio 0.5 L (0.9-1.6) Result Diagrams: 03/30/21 05:53 03/30/21 05:53 Sepsis Event Note - Evaluation Sepsis Screening Result: No Definite Risk - Focused Exam Vital Signs: Vital Signs Temp Pulse Pulse Resp BP BP Pulse Ox 03/30/21 08:51 60 134/62 03/30/21 08:50 134/62 03/30/21 07:00 97.3 F 65 16 171/75 H 98 03/30/21 06:00 03/30/21 03:44 98.1 F 61 16 170/78 H 95 03/30/21 00:00 97.7 F 69 18 162/74 H 94 L Pulse Ox 03/30/21 08:51 03/30/21 08:50 03/30/21 07:00 03/30/21 06:00 95 03/30/21 03:44 03/30/21 00:00 - Problem List & Annotations (1) Acute hypoxemic respiratory failure due to COVID-19 SNOMED Code(s): 295046500 Code(s): U07.1 - COVID-19; J96.01 - ACUTE RESPIRATORY FAILURE WITH HYPOXIA Status: Acute Current Visit: Yes (2) Pulmonary hypertension SNOMED Code(s): 28438948 Code(s): I27.20 - PULMONARY HYPERTENSION, UNSPECIFIED Status: Acute C urrent Visit: Yes (3) Diabetes type 2, uncontrolled SNOMED Code(s): 206569832, 595464169 Code(s): E11.65 - TYPE 2 DIABETES MELLITUS WITH HYPERGLYCEMIA Status: Chronic Priority: High Current Visit: No Qualifiers: Glycemic state: with hyperglycemia Qualified Code(s): E11.65 - Type 2 diabetes mellitus with hyperglycemia - Problem List Review Problem List Initiated/Reviewed/Updated: Yes - Assessment Assessment:: 1. COVID-19 pneumonia -Continue dexamethasone per oral route -Continue baricitinib per oral route -Continue Combivent for shortness of breath -Continue Tessalon [place] for cough and congestion -For anxiety Ativan -Continue to wean oxygen as appropriate, currently saturating 95% on 1 L 2. Diabetes mellitus -Continue Lantus/glargine -Continue insulin sliding scale/NovoLog 3. Past medical history -Continue Cardizem, Prozac, sildenafil
[2021-03-30] MEDS: Enoxaparin 40 MG/0.4 ML Syringe SUBCUT SCH (17:45)
[2021-03-30] MEDS: LORazepam 0.5 MG Tab PO PRN (23:51)
[2021-03-30] MEDS: Melatonin 3 MG Tab PO PRN (23:51)
[2021-03-30] MEDS: Benzonatate 100 MG Cap PO PRN (23:51)
[2021-03-31] MEDS: Albuterol/Ipratropium 4 GM Inhalation Spray INH SCH ×2 (05:34→12:12)
[2021-03-31 06:45] LABS: CARBON DIOXIDE,CO2 26.8 mmol/L (21.0-32.0); POTASSIUM,K 4.4 mmol/L (3.5-5.1)
[2021-03-31] MEDS: Insulin Aspart 100 Units/ML 3 ML Pen SUBCUT SCH ×2 (08:17→12:13)
[2021-03-31] MEDS: Diltiazem 120 MG Cap.CD PO SCH (08:17)
[2021-03-31] MEDS: Dexamethasone 4 MG Tab PO SCH (08:17)
[2021-03-31] MEDS: Insulin Glargine,Human Rec. Analog 100 Units/ML 3 ML Pen SUBCUT SCH (08:18)
[2021-03-31] MEDS: Furosemide 20 MG Tab PO SCH (08:20)
--- NOTE | 2021-03-31 11:24 | PCM.DCSUM1 ---
Discharge Summary - Hospital Course Free Text/Narrative:: The patient is a 81-year-old female, on day 10 of service, who has a significant past medical history of coronary artery disease, pacemaker placement, hyperlipidemia, chronic obstructive pulmonary disease, hypothyroidism, and diabetes mellitus type 2, who is currently on the medical floor for acute respiratory failure secondary to COVID-19 pneumonia. Throughout the patient's hospital stay she was treated with different COVID-19 protocol medications including remdesivir per IV route, dexamethasone per oral route, Combivent for shortness of breath, baricitinib, Tessalon Perles, and Ativan at multiple points of time due to anxiety related to her breathing issues. Upon discharge from the hospital the patient will have a prescription sent to her pharmacy for an albuterol inhaler as well as 12 tablets of Ativan for anxiety which has helped her sleep and calm down until she can see her PCP who can write her an additional prescription. During her hospitalization her oxygen fluctuations demanded she be transferred from the medical floor to the intensive care unit, and when she improved she was then transferred back to the floor. The patient had a walking trial done which showed she needs 2 L of oxygen with ambulation which will be provided via [employer]. The patient will live with her daughter who will be her primary director of student financial services, and home health will also be involved to help this patient with nursing needs due to her general debility and inability to leave the house without assistance. The patient has been advised to be compliant with her medication and take them at scheduled times. She has also been educated on returning to the hospital if she has increasing shortness of breath or respiratory difficulty, chest pain, or palpitations. The patient is now stable and can be discharged. - Discharge Data Discharge Date: 03/31/21 Discharge Disposition: Home, Home Health Agency 06 Condition: Stable - Referral to Home Health Date of Face to Face Encounter: 03/31/21 Reason for Homebound Status: -General debility/difficulty with ambulation and needs assistance leaving her house. -Needs help with activities of daily living Primary Care Physician: PCP None Skilled Need: -Nursing to help manage medication administration - Discharge Diagnosis/Problem(s) (1) Acute hypoxemic respiratory failure due to COVID-19 SNOMED Code(s): 296646501 ICD Code: U07.1 - COVID-19; J96.01 - ACUTE RESPIRATORY FAILURE WITH HYPOXIA Status: Acute Current Visit: Yes (2) Pulmonary hypertension SNOMED Code(s): 38683848 ICD Code: I27.20 - PULMONARY HYPERTENSION, UNSPECIFIED Status: Acute Cur rent Visit: Yes (3) Diabetes type 2, uncontrolled SNOMED Code(s): 336850678, 571161274 ICD Code: E11.65 - TYPE 2 DIABETES MELLITUS WITH HYPERGLYCEMIA Status: Chronic Priority: High Current Visit: No Qualifiers: Glycemic state: with hyperglycemia Qualified Code(s): E11.65 - Type 2 diabetes mellitus with hyperglycemia - Patient Summary/Data Consults: Consultations 03/23/21 11:13 Consult to Physical Therapy [PT Evaluation and Treatment] [CONS] Routine - Patient Instructions Diet: Heart Healthy Diet Activity: As Tolerated Showering/Bathing: May Shower Other/Special Instructions: -Return to the hospital if you have increasing respiratory difficulty, shortness of breath, chest pain, palpitations. -Take your medication at scheduled times. -Follow-up with your PCP provider - Discharge Plan *PRESCRIPTION DRUG MONITORING PROGRAM REVIEWED*: Not Applicable *COPY OF PRESCRIPTION DRUG MONITORING REPORT IN PATIENT LUCI: Not Applicable Prescriptions/Med Rec: Albuterol Sulfate [Albuterol Sulfate Hfa] 8.5 gm IH Q4H PRN #1 hfa.aer.ad PRN Reason: Shortness Of Breath LORazepam [Ativan] 1 mg PO Q8H #12 tablet Home Medications: Home Meds Levothyroxine Sodium [Synthroid] 112 mcg PO DAILY 11/22/17 [History] Albuterol Sulfate [Albuterol Sulfate Hfa] 2 inh IH QID PRN 03/22/21 [History] Codeine/Promethazine HCl [Promethazine-Codeine Syrup] 5 ml PO Q4H PRN 03/22/21 [History] Diclofenac Sodium 50 mg PO BID PRN 03/22/21 [History] FLUoxetine [PROzac] 10 mg PO DAILY 03/22/21 [History] Furosemide 20 mg PO DAILY 03/22/21 [History] Glimepiride 2 mg PO BIDMEALS 03/22/21 [History] Insulin Degludec [Tresiba] 10 unit SUBCUT BEDTIME 03/22/21 [History] Insulin Lispro [Humalog] 0 unit SUBCUT TIDMEALS MDD 20 UNITS 03/22/21 [History] Montelukast Sodium 10 mg PO BEDTIME 03/22/21 [History] Potassium Chloride [Klor-Con 10] 10 meq PO Q2D 03/22/21 [History] Sacubitril/Valsartan [Entresto 97 mg-103 mg Tablet] 97 - 103 mg PO BID 03/22/21 [History] Sildenafil [Revatio] 10 mg PO BID 03/22/21 [History] Tiotropium BR/Olodaterol HCL [Stiolto Respimat] 2 inh IH DAILY 03/22/21 [History] dilTIAZem HCL [Diltiazem 24Hr ER (Cd)] 120 mg PO DAILY 03/22/21 [History] Albuterol Sulfate [Albuterol Sulfate Hfa] 8.5 gm IH Q4H PRN #1 hfa.aer.ad 03/31/21 [Rx] LORazepam [Ativan] 1 mg PO Q8H #12 tablet 03/31/21 [Rx] Patient Handouts: Hypoxia, COVID-19 Frequently Asked Questions, COVID-19, How to Protect Yourself and Others - [facility] (12/02/2020), Frequently Asked Questions About COVID-19 Vaccination - [facility] (12/23/2020), Infection Prevention in the Home, Lorazepam tablets, COVID-19: Quarantine vs. Isolation - [facility] (04/07/2020), Albuterol inhalation solution Referrals: Rahel Cortez DO [Ordering Only Provider] - 04/11/21 12:45 pm - Discharge Summary/Plan Comment DC Time >30 min.: Yes Total # of Minutes for Discharge Time: 35 minutes - Review of Systems General: Denies: Fever, Weakness, Fatigue HEENT: Denies: Sore Throat Pulmonary: Reports: Shortness of Breath. Denies: Cough Cardiovascular: Denies: Chest Pain, Palpitations Gastrointestinal: Denies: Abdominal Pain Genitourinary: Denies: Dysuria Psychiatric: Reports: Anxiety - Patient Data Vitals - Most Recent: Last Vital Signs Temp 97.6 F 03/31/21 08:12 Pulse 63 03/31/21 08:17 Resp 18 03/31/21 08:12 BP 158/74 H 03/31/21 08:17 Pulse Ox 91 L 03/31/21 08:12 Weight - Most Recent: 173 lb 12.8 oz I&O - Last 24 hours: Intake & Output 03/30/21 03/31/21 03/31/21 22:59 06:59 14:59 Intake Total 480 480 Output Total 500 600 Balance -20 -120 Lab Results - Last 24 hrs: Laboratory Results - last 24 hr 03/30/21 03/30/21 03/30/21 Range/Units 11:39 17:01 20:57 WBC (4.0-11.0) K/uL RBC (4.30-5.90) M/uL Hgb (12.0-16.0) g/dL Hct (36.0-46.0) % MCV (80.0-98.0) fL MCH (27.0-32.0) pg MCHC (31.0-37.0) g/dL RDW Std Deviation (28.0-62.0) fl RDW Coeff of Andree (11.0-15.0) % Plt Count (150-400) K/uL MPV (7.40-12.00) fL Neut % (Auto) (48.0-80.0) % Lymph % (Auto) (16.0-40.0) % Towns % (Auto) (0.0-15.0) % Eos % (Auto) (0.0-7.0) % Baso % (Auto) (0.0-1.5) % Neut # (Auto) (1.4-5.7) K/uL Lymph # (Auto) (0.6-2.4) K/uL Towns # (Auto) (0.0-0.8) K/uL Eos # (Auto) (0.0-0.7) K/uL Baso # (Auto) (0.0-0.1) K/uL Nucleated RBC % /100WBC Nucleated RBCs # K/uL Sodium (136-145) mmol/L Potassium (3.5-5.1) mmol/L Chloride (98-107) mmol/L Carbon Dioxide (21.0-32.0) mmol/L BUN (7.0-18.0) mg/dL Creatinine (0.6-1.0) mg/dL Est Cr Clr Drug Dosing mL/min Estimated GFR (MDRD) ml/min Glucose (74-106) mg/dL POC Glucose 309 H 171 H 379 H (70-99) mg/dL Calcium (8.5-10.1) mg/dL Total Bilirubin (0.2-1.0) mg/dL AST (15-37) IU/L ALT (14-63) IU/L Alkaline Phosphatase (46-116) U/L Total Protein (6.4-8.2) g/dL Albumin (3.4-5.0) g/dL Globulin (2.6-4.0) g/dL Albumin/Globulin Ratio (0.9-1.6) 03/31/21 03/31/21 03/31/21 Range/Units 04:54 04:54 05:31 WBC 9.69 (4.0-11.0) K/uL RBC 4.27 L (4.30-5.90) M/uL Hgb 12.2 (12.0-16.0) g/dL Hct 35.9 L (36.0-46.0) % MCV 84.1 (80.0-98.0) fL MCH 28.6 (27.0-32.0) pg MCHC 34.0 (31.0-37.0) g/dL RDW Std Deviation 40.1 (28.0-62.0) fl RDW Coeff of Andree 13 (11.0-15.0) % Plt Count 201 (150-400) K/uL MPV 11.20 (7.40-12.00) fL Neut % (Auto) 85.6 H (48.0-80.0) % Lymph % (Auto) 7.5 L (16.0-40.0) % Towns % (Auto) 6.8 (0.0-15.0) % Eos % (Auto) 0.1 (0.0-7.0) % Baso % (Auto) 0.0 (0.0-1.5) % Neut # (Auto) 8.3 H (1.4-5.7) K/uL Lymph # (Auto) 0.7 (0.6-2.4) K/uL Towns # (Auto) 0.7 (0.0-0.8) K/uL Eos # (Auto) 0.0 (0.0-0.7) K/uL Baso # (Auto) 0.0 (0.0-0.1) K/uL Nucleated RBC % 0.0 /100WBC Nucleated RBCs # 0 K/uL Sodium 134 L (136-145) mmol/L Potassium 4.4 (3.5-5.1) mmol/L Chloride 102 (98-107) mmol/L Carbon Dioxide 26.8 (21.0-32.0) mmol/L BUN 55 H (7.0-18.0) mg/dL Creatinine 1.3 H (0.6-1.0) mg/dL Est Cr Clr Drug Dosing 27.58 mL/min Estimated GFR (MDRD) 39.1 ml/min Glucose 149 H (74-106) mg/dL POC Glucose 142 H (70-99) mg/dL Calcium 7.9 L (8.5-10.1) mg/dL Total Bilirubin 0.8 (0.2-1.0) mg/dL AST 18 (15-37) IU/L ALT 26 (14-63) IU/L Alkaline Phosphatase 74 (46-116) U/L Total Protein 6.5 (6.4-8.2) g/dL Albumin 2.2 L (3.4-5.0) g/dL Globulin 4.3 H (2.6-4.0) g/dL Albumin/Globulin Ratio 0.5 L (0.9-1.6) Med Orders - Current: Current Medications Acetaminophen (Acetaminophen 325 Mg Tab) 650 mg PO Q4H PRN PRN Reason: Pain (Mild 1-3)/fever Albuterol/Ipratropium (Albuterol/Ipratropium 4 Gm Inhalation [place]) 1 gm INH QID [facility] Last Admin: 03/31/21 05:34 Dose: 1 puff Documented by: Baricitinib (Baricitinib 2 Mg Tab) 4 mg PO Q24H [facility] Last Admin: 03/30/21 13:17 Dose: 4 mg Documented by: Benzonatate (Benzonatate 100 Mg Cap) 100 mg PO Q6H PRN PRN Reason: Cough Last Admin: 03/30/21 23:51 Dose: 100 mg Documented by: Dexamethasone (Dexamethasone 4 Mg Tab) 6 mg PO DAILY [facility] Last Admin: 03/31/21 08:17 Dose: 6 mg Documented by: Dextrose/Water (50% Dextrose In Water 50 Ml Syringe) 50 ml IVPUSH ASDIRECTED PRN PRN Reason: Hypoglycemia Diltiazem HCl (Diltiazem 120 Mg Cap.Cd) 120 mg PO DAILY [facility] Last Admin: 03/31/21 08:17 Dose: 120 mg Documented by: Enoxaparin Sodium (Enoxaparin 40 Mg/0.4 Ml Syringe) 40 mg SUBCUT Q24H [facility] Last Admin: 03/30/21 17:45 Dose: 40 mg Documented by: Fluoxetine HCl (Fluoxetine 10 Mg Tab) 10 mg PO DAILY [facility] Last Admin: 03/31/21 08:17 Dose: 10 mg Documented by: Furosemide (Furosemide 20 Mg Tab) 20 mg PO DAILY [facility] Last Admin: 03/31/21 08:20 Dose: 20 mg Documented by: Glucagon (Glucagon,Human Recombinant 1 Mg Vial) 1 mg IM ASDIRECTED PRN PRN Reason: Hypoglycemia Insulin Aspart (Insulin Aspart 100 Units/Ml 3 Ml Pen) 0 unit SUBCUT QIDACANDBED [facility]; Protocol Last Admin: 03/31/21 08:17 Dose: Not Given Documented by: Insulin Glargine (Insulin Glargine,Human Rec. Analog 100 Units/Ml 3 Ml Pen) 15 units SUBCUT BIDAC [facility] Last Admin: 03/31/21 08:18 Dose: 15 units Documented by: Lorazepam (Lorazepam 0.5 Mg Tab) 0.25 mg PO Q4H PRN PRN Reason: Anxiety Last Admin: 03/30/21 23:51 Dose: 0.25 mg Documented by: Melatonin (Melatonin 3 Mg Tab) 3 mg PO BEDTIME PRN PRN Reason: Insomnia Last Admin: 03/30/21 23:51 Dose: 3 mg Documented by: Valsartan (Valsartan 80 Mg Tab) 80 mg PO BID [facility] Last Admin: 03/31/21 08:17 Dose: 80 mg Documented by: Discontinued Medications Dexamethasone (Dexamethasone 10 Mg/Ml Sdv) 10 mg IVPUSH ONETIME ONE Stop: 03/22/21 13:14 Last Admin: 03/22/21 13:41 Dose: 10 mg Documented by: Remdesivir 200 mg/ Sodium (Chloride) 250 mls @ 250 mls/hr IV ONETIME ONE Stop: 03/22/21 14:33 Last Admin: 03/22/21 15:25 Dose: 250 mls/hr Documented by: Remdesivir 100 mg/ Sodium (Chloride) 100 mls @ 100 mls/hr IV Q24H [facility] Stop: 03/26/21 15:59 Last Admin: 03/26/21 14:28 Dose: 100 mls/hr Documented by: Ceftriaxone Sodium/Dextrose 1 (gm/ Premix) 50 mls @ 100 mls/hr IV Q24H [facility] Last Admin: 03/28/21 15:07 Dose: 100 mls/hr Documented by: Azithromycin 500 mg/ Sodium (Chloride) 250 mls @ 250 mls/hr IV Q24H [facility] Last Admin: 03/28/21 18:22 Dose: 250 mls/hr Documented by: Insulin Aspart (Insulin Aspart 100 Units/Ml 3 Ml Pen) 0 unit SUBCUT TIDAC [facility]; Protocol Last Admin: 03/23/21 12:37 Dose: Not Given Documented by: Insulin Aspart (Insulin Aspart 100 Units/Ml 3 Ml Pen) 7 unit SUBCUT ONETIME ONE Stop: 03/23/21 00:49 Last Admin: 03/23/21 01:15 Dose: 7 units Documented by: Insulin Aspart (Insulin Aspart 100 Units/Ml 3 Ml Pen) 0 unit SUBCUT TIDAC [facility]; Protocol Last Admin: 03/24/21 18:37 Dose: 15 units Documented by: Insulin Aspart (Insulin Aspart 100 Units/Ml 3 Ml Pen) 0 unit SUBCUT QIDACANDBED [facility]; Protocol Last Admin: 03/26/21 09:32 Dose: Not Given Documented by: Insulin Glargine (Insulin Glargine,Human Rec. Analog 100 Units/Ml 3 Ml Pen) 6 units SUBCUT BEDTIME [facility] Last Admin: 03/22/21 20:27 Dose: 6 units Documented by: Insulin Glargine (Insulin Glargine,Human Rec. Analog 100 Units/Ml 3 Ml Pen) 10 units SUBCUT BID [facility] Last Admin: 03/24/21 09:06 Dose: 10 units Documented by: Insulin Glargine (Insulin Glargine,Human Rec. Analog 100 Units/Ml 3 Ml Pen) 14 units SUBCUT BID [facility] Insulin Glargine (Insulin Glargine,Human Rec. Analog 100 Units/Ml 3 Ml Pen) 20 units SUBCUT BID [facility] Last Admin: 03/26/21 09:33 Dose: Not Given Documented by: Iopamidol (Iopamidol 755 Mg/Ml 500 Ml Multipack Bottle) 100 ml IVPUSH ONETIME STA Stop: 03/22/21 16:26 Last Admin: 03/22/21 16:26 Dose: 100 ml Documented by: Levothyroxine Sodium (Levothyroxine 112 Mcg Tab) 112 mcg PO DAILY@0600 [facility] Last Admin: 03/24/21 06:42 Dose: 112 mcg Documented by: Lorazepam (Lorazepam 0.5 Mg Tab) 0.5 mg PO Q4H PRN PRN Reason: Anxiety Last Admin: 03/25/21 00:21 Dose: 0.5 mg Documented by: Lorazepam (Lorazepam 1 Mg Tab) 1 mg PO ONETIME ONE Stop: 03/30/21 10:55 Last Admin: 03/30/21 11:42 Dose: 1 mg Documented by: Non-Formulary Medication (Sacubitril/Valsartan [Entresto 97 Mg-103 Mg Tablet]) 97 - 103 mg PO BID [facility] Last Admin: 03/23/21 00:53 Dose: Not Given Documented by: Sildenafil 20 Mg Tab 0.5 each PO BID [facility] Last Admin: 03/25/21 13:49 Dose: Not Given Documented by: - Exam General: Reports: Alert, Oriented, Cooperative HEENT: Reports: Mucous Membr. Moist/[place] Neck: Reports: Trachea Midline Lungs: Reports: Clear to Auscultation, Normal Respiratory Effort Cardiovascular: Reports: Regular Rate, Regular Rhythm GI/Abdominal Exam: Normal Bowel Sounds, Soft, Non-Tender Psy/Mental Status: Reports: Anxious
[2021-03-31] MEDS: LORazepam 0.5 MG Tab PO PRN (12:14)
== END 2021-03-31 14:30 | disposition home health service (06) | DRG 177 ==
LOC: MW.ED 12:55 → MW.MS 14:34 → MW.ICU 03-24 12:16 → MW.MS 03-27 15:52
PROVIDERS: ADMIT Internal Medicine; ATTEND Internal Medicine
PROC: XW033E5 Introduction of Remdesivir Anti-infective into Peripheral Vein, Percutaneous Approach, New Technology Group 5 (ICD-10-PCS; principal; 2021-03-22)
PROC: XW0DXM6 Introduction of Baricitinib into Mouth and Pharynx, External Approach, New Technology Group 6 (ICD-10-PCS; 2021-03-22)
PROC: 3E0333Z Introduction of Anti-inflammatory into Peripheral Vein, Percutaneous Approach (ICD-10-PCS; 2021-03-22)
PROC: 3E0DX3Z Introduction of Anti-inflammatory into Mouth and Pharynx, External Approach (ICD-10-PCS; 2021-03-25)
DX: U07.1 COVID-19 (principal); R09.02 Hypoxemia; J96.01 Acute respiratory failure with hypoxia; J12.82 Pneumonia due to coronavirus disease 2019; I27.20 Pulmonary hypertension, unspecified; J44.9 Chronic obstructive pulmonary disease, unspecified; E03.9 Hypothyroidism, unspecified; G47.30 Sleep apnea, unspecified; Z98.51 Tubal ligation status; M88.88 Osteitis deformans of other bones; H54.7 Unspecified visual loss; H91.90 Unspecified hearing loss, unspecified ear; I25.10 Atherosclerotic heart disease of native coronary artery without angina pectoris; E78.00 Pure hypercholesterolemia, unspecified; I10 Essential (primary) hypertension; E11.9 Type 2 diabetes mellitus without complications; E05.00 Thyrotoxicosis with diffuse goiter without thyrotoxic crisis or storm; Z90.710 Acquired absence of both cervix and uterus; Z98.890 Other specified postprocedural states; E11.65 Type 2 diabetes mellitus with hyperglycemia; Z79.890 Hormone replacement therapy; Z79.899 Other long term (current) drug therapy; Z79.4 Long term (current) use of insulin; Z95.0 Presence of cardiac pacemaker; G47.33 Obstructive sleep apnea (adult) (pediatric); E66.3 Overweight; Z68.30 Body mass index [BMI] 30.0-30.9, adult
CPT/HCPCS: 36415; 71045; 80053; 82550; 83735; 83880; 84100; 84484; 85025; 85610; 85730; 86140; 96374; 99285; J1100; U0002; 71275; 71275-26; 80048; 82947; 84145; 85379; 93005; 94640; 94664; 97110-GP; 97112-GP; 97162-GP; 97530-GP; A9270-GY; J0456; J0696; J1650; J1815-GY; J7050; J8540; Q9967

== ENCOUNTER 2021-04-17 04:18 | Inpatient (IN) | payer MEDICARE, BC ==
[2021-04-17] MEDS ORDERED: LORazepam 2 MG/ML SDV IVPUSH ONE ×2 (04:19→05:46)
--- NOTE | 2021-04-17 04:36 | EDM.PDOC ---
<Magdiel Boyce - Last Filed: 04/17/21 07:00> ED HPI GENERAL MEDICAL PROBLEM - General Chief Complaint: Respiratory Problem Stated Complaint: DIFFICULTY BREATHING Time Seen by Provider: 04/17/21 04:18 Source of Information: Reports: Patient, EMS History Limitations: Reports: No Limitations - History of Present Illness INITIAL COMMENTS - FREE TEXT/NARRATIVE: 81-year-old female past medical history hypertension, insulin-dependent diabetes, pulmonary hypertension, chronic respiratory failure on home O2, COPD, hypothyroidism, recent COVID-19 infection discharged from ICU a couple of weeks ago presents for shortness of breath and anxiety. Patient notes that ever since discharge from the hospital from her recent Covid infection she has struggled with shortness of breath and anxiety. She states that she has frequent panic attacks. Her daughter apparently noted that her oxygen was low this evening despite bumping her nasal cannula oxygen up to 5 L prompting her to call EMS. Patient denies any associated cough, fevers, chest pain. She does note that the shortness of breath seems worse tonight and she feels very anxious and panicky. - Related Data Allergies Allergy/AdvReac Type Severity Reaction Status Date / Time No Known Allergies Allergy Verified 04/17/21 04:38 Home Meds: Home Meds Levothyroxine Sodium [Synthroid] 112 mcg PO DAILY 11/22/17 [History] Albuterol Sulfate [Albuterol Sulfate Hfa] 2 inh IH QID PRN 03/22/21 [History] Codeine/Promethazine HCl [Promethazine-Codeine Syrup] 5 ml PO Q4H PRN 03/22/21 [History] Diclofenac Sodium 50 mg PO BID PRN 03/22/21 [History] FLUoxetine [PROzac] 10 mg PO DAILY 03/22/21 [History] Furosemide 20 mg PO DAILY 03/22/21 [History] Glimepiride 2 mg PO BIDMEALS 03/22/21 [History] Insulin Degludec [Tresiba] 10 unit SUBCUT BEDTIME 03/22/21 [History] Insulin Lispro [Humalog] 0 unit SUBCUT TIDMEALS MDD 20 UNITS 03/22/21 [History] Montelukast Sodium 10 mg PO BEDTIME 03/22/21 [History] Potassium Chloride [Klor-Con 10] 10 meq PO Q2D 03/22/21 [History] Sacubitril/Valsartan [Entresto 97 mg-103 mg Tablet] 97 - 103 mg PO BID 03/22/21 [History] Sildenafil [Revatio] 10 mg PO BID 03/22/21 [History] Tiotropium BR/Olodaterol HCL [Stiolto Respimat] 2 inh IH DAILY 03/22/21 [History] dilTIAZem HCL [Diltiazem 24Hr ER (Cd)] 120 mg PO DAILY 03/22/21 [History] Albuterol Sulfate [Albuterol Sulfate Hfa] 8.5 gm IH Q4H PRN #1 hfa.aer.ad 03/31/21 [Rx] LORazepam [Ativan] 1 mg PO Q8H #12 tablet 03/31/21 [Rx] Past Medical History HEENT History: Reports: Hard of Hearing, Impaired Vision Cardiovascular History: Reports: CAD, High Cholesterol, Hypertension, Pacemaker Respiratory History: Reports: COPD, Sleep Apnea Other Respiratory History: Uses C-PAP Gastrointestinal History: Reports: None Genitourinary History: Reports: None DIRECTOR PUBLIC SERVICE History: Reports: , Other (See Below) Other DIRECTOR PUBLIC SERVICE History: Bilateral ovary and fallopian tube removed Musculoskeletal History: Reports: Arthritis, Other (See Below) 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 Neurological History: Reports: None Psychiatric History: Reports: None Endocrine/Metabolic History: Reports: Diabetes, Type II, Hypothyroidism, Other (See Below) Other Endocrine/Metabolic History: Graves Disease Hematologic History: Reports: None Oncologic (Cancer) History: Reports: Other (See Below) Other Oncologic History: Mass removed ovary - Infectious Disease History Infectious Disease History: Reports: Chicken Pox, Measles, Mumps - Past Surgical History Head Surgeries/Procedures: Reports: None HEENT Surgical History: Reports: Cataract Surgery Cardiovascular Surgical History: Reports: None GI Surgical History: Reports: Hernia Repair/Other Other GI Surgeries/Procedures: In June, Female Surgical History: Reports: Hysterectomy, Oophorectomy Endocrine Surgical History: Reports: Thyroidectomy Other Endocrine Surgeries/Procedures: Radioactive iodine treatment destroyed the thyroid gland. Oncologic Surgical History: Reports: None Social & Family History - Family History Family Medical History: Unobtainable - Caffeine Use Caffeine Use: Reports: Coffee ED ROS GENERAL - Review of Systems Review Of Systems: Comprehensive ROS is negative, except as noted in HPI. ED EXAM, GENERAL - Physical Exam Exam: See Below Exam Limited By: No Limitations General Appearance: Alert, WD/WN, No Apparent Distress, Anxious Ears: Hearing Grossly Normal Throat/Mouth: Normal Voice, No Airway Compromise Head: Atraumatic, Normocephalic Respiratory/Chest: No Respiratory Distress, Lungs Clear, Normal Breath Sounds, No Accessory Muscle Use Cardiovascular: Normal Peripheral Pulses, Tachycardia, Other (b/l lower extremity edema) GI/Abdominal: Soft, Non-Tender Extremities: Normal Inspection Neurological: Alert, Normal Cognition Psychiatric: Normal Mood, Anxious Skin Exam: Warm, Dry, Intact, Normal Color #1 Interpretation EKG Date: 04/17/21 Time: 04:43 Rhythm: Other (AV paced rhythm) Rate (Beats/Min): 109 Anderson: Normal P-Wave: Present QRS: Normal ST-T: Normal QT: Normal CA/PQ Interval: 110 EKG Interpretation Comments: paced EKG Course - Re-Assessments/Exams Free Text/Narrative Re-Assessment/Exam: 04/17/21 04:38 Patient presents with hypoxia. Per EMS she was saturating in the 70s on arrival. They applied a nonrebreather mask and saturations improved to the low 80s. Patient's oxygen saturation is difficult to obtain secondary to cold extremities in the ER but with good waveform appears to be in the mid 80s on nonrebreather at 15 L. We will get extensive labs and imaging. Will continue supplemental oxygenation. 04/17/21 04:54 Chest x-ray shows near whiteout of right sided lung, base of left lung. White blood cell count is 16, will start antibiotics. Will start high flow nasal cannula. 04/17/21 05:31 Patient without clinical improvement on high flow nasal cannula, oxygenation in the high 70s/low 80s. Will trial BiPAP. Patient's Covid test remains positive and her chest x-ray shows severe pneumonia. D-dimer is markedly elevated. 04/17/21 06:36 I did have a long phone conversation with patient's daughter Ms. Dodson (phone number in demographics tab); she notes that patient was initially recovering well from COVID hospitalization, but over last 2-3 days she has had deterioration. She notes that her blood glucose has been "all over the place" with a reading of 500 this evening. She notes that patient's breathing has been worsening over last couple of days and tonight O2 saturations were in 50s-60s despite turning nasal canula up to 5-L. Ivory notes that patient was not on home O2 until after recent COVID diagnosis. She typically wears 1-2L. I also had a conversation with both Ivory and the patient directly to confirm code status. Patient is full-code and would want all interventions including intubation and CPR if necessary. Patient and her daughter also note that they would like the patient to be transferred to either [facility] or [facility] for definitive care. 04/17/21 07:00 Patient care transferred to Dr. Mark pending transfer of care Departure - Departure Disposition: Admitted As Inpatient 64 Clinical Impression: Pneumonia - Discharge Information Referrals: PCP,None [Primary Care Provider] - Forms: ED Department Discharge Critical Care Note - Critical Care Note Total Time (mins): 35 <Haim Mark - Last Filed: 04/17/21 13:59> ED GENERAL MEDICAL PROCEDURES - Endotracheal Intubation Time of Intubation: 11:50 ET Intubation Indication: Respiratory Failure Preparation: Suction, Balloon Tested, BVM Set Up, Difficult Airway Equip Pre-Oxygenation: Assisted with BVM, 100% FiO2 Anesthesia Meds: Etomidate Placement: Orotracheal Cords Visualized: Yes ETT Size In mm: 7 Number of Attempts: 1 Confirmed By: CO2 Indicator, Bilateral Breath Sounds, Chest Xray Tube Secured By: By RT #2 Interpretation EKG Date: 04/17/21 Time: 11:46 Rhythm: Other (AV paced) Rate (Beats/Min): 89 ST-T: Normal Course - Vital Signs Last Recorded V/S: Last Vital Signs Temp 96.7 F L 04/17/21 12:15 Pulse 89 04/17/21 12:15 Resp 20 04/17/21 12:15 BP 184/80 H 04/17/21 12:15 Pulse Ox 95 04/17/21 12:15 - Orders/Labs/Meds Orders: Active Orders 24 hr Category Date Time Status Cardiac Monitoring [RC] . DIRECTED Care 04/17/21 04:19 Active Pulse Oximetry [RC] ASDIRECTED Care 04/17/21 04:19 Active RT Aerosol Therapy [RC] ASDIRECTED Care 04/17/21 04:42 Active RT Aerosol Therapy [RC] ASDIRECTED Care 04/17/21 11:01 Active RT Aerosol Therapy [RC] ASDIRECTED Care 04/17/21 11:09 Active RT BiPAP/CPAP [RC] ASDIRECTED Care 04/17/21 05:51 Active Ventilator Assessment [RT Ventilator, Adult] [RC] Care 04/17/21 12:11 Active ASDIRECTED CULTURE BLOOD [BC] Stat Lab 04/17/21 04:30 Received CULTURE BLOOD [BC] Stat Lab 04/17/21 04:57 Results UA W/MYRTLE RFLX IF INDICATED [URIN] Stat Lab 04/17/21 04:20 Ordered fentaNYL/Normal Saline [fentaNYL 2500 MCG in NS 250 ML Med 04/17/21 11:49 Active (10 MCG/ML)] 2,500 mcg Premix Bag 1 bag IV TITRATE Blood Culture x2 Reflex Set [OM.PC] Stat Oth 04/17/21 04:42 Ordered Saline Lock Insert [OM.PC] Stat Oth 04/17/21 04:19 Ordered Medication Orders Fentanyl Citrate 2,500 mcg/ (Premix) 250 mls @ 2.5 mls/hr IV TITRATE PRN; Prot ocol PRN Reason: Agitation Last Admin: 04/17/21 12:04 Dose: 25 mcg/hr, 2.5 mls/hr Documented by: ULISES Labs: Laboratory Tests 04/17/21 04/17/21 04/17/21 Range/Units 04:30 04:30 04:30 WBC 16.38 H (4.0-11.0) K/uL RBC 4.34 (4.30-5.90) M/uL Hgb 12.6 (12.0-16.0) g/dL Hct 37.3 (36.0-46.0) % MCV 85.9 (80.0-98.0) fL MCH 29.0 (27.0-32.0) pg MCHC 33.8 (31.0-37.0) g/dL RDW Std Deviation 45.6 (28.0-62.0) fl RDW Coeff of Andree 15 (11.0-15.0) % Plt Count 349 (150-400) K/uL MPV 9.70 (7.40-12.00) fL Neut % (Auto) 79.6 (48.0-80.0) % Lymph % (Auto) 10.5 L (16.0-40.0) % [place] % (Auto) 7.0 (0.0-15.0) % Eos % (Auto) 2.7 (0.0-7.0) % Baso % (Auto) 0.2 (0.0-1.5) % Neut # (Auto) 13.0 H (1.4-5.7) K/uL Lymph # (Auto) 1.7 (0.6-2.4) K/uL [place] # (Auto) 1.1 H (0.0-0.8) K/uL Eos # (Auto) 0.5 (0.0-0.7) K/uL Baso # (Auto) 0.0 (0.0-0.1) K/uL Nucleated RBC % 0.0 /100WBC Nucleated RBCs # 0 K/uL INR 1.04 APTT 24.8 (18.6-31.3) SEC D-Dimer, Quantitative 13.40 H (0.0-0.50) mg/L FEU ABG pH 7.40 (7.35-7.45) ABG pCO2 39 (35-45) mmHG ABG pO2 52 L (80-105) mmHG ABG HCO3 24 (22-26) mEq/L ABG Total CO2 21.6 L (23-27) mmol/L ABG Base Excess -0.9 (-2.0-3.0) Sodium (136-145) mmol/L Potassium (3.5-5.1) mmol/L Chloride (98-107) mmol/L Carbon Dioxide (21.0-32.0) mmol/L BUN (7.0-18.0) mg/dL Creatinine (0.6-1.0) mg/dL Est Cr Clr Drug Dosing mL/min Estimated GFR (MDRD) ml/min Glucose (74-106) mg/dL Lactic Acid (0.4-2.0) mmol/L Calcium (8.5-10.1) mg/dL Magnesium (1.8-2.4) mg/dL Total Bilirubin (0.2-1.0) mg/dL AST (15-37) IU/L ALT (14-63) IU/L Alkaline Phosphatase (46-116) U/L Troponin I (0.000-0.056) ng/mL C-Reactive Protein (0.00-0.90) mg/dL B-Natriuretic Peptide (<100) PG/ML Total Protein (6.4-8.2) g/dL Albumin (3.4-5.0) g/dL Globulin (2.6-4.0) g/dL Albumin/Globulin Ratio (0.9-1.6) Ketones (NEG) Influenza Type A RNA (NEGATIVE) Influenza Type B RNA (NEGATIVE) SARS-CoV-2 RNA (DIXON) (NEGATIVE) 04/17/21 04/17/21 04/17/21 Range/Units 04:30 04:30 04:57 WBC (4.0-11.0) K/uL RBC (4.30-5.90) M/uL Hgb (12.0-16.0) g/dL Hct (36.0-46.0) % MCV (80.0-98.0) fL MCH (27.0-32.0) pg MCHC (31.0-37.0) g/dL RDW Std Deviation (28.0-62.0) fl RDW Coeff of Andree (11.0-15.0) % Plt Count (150-400) K/uL MPV (7.40-12.00) fL Neut % (Auto) (48.0-80.0) % Lymph % (Auto) (16.0-40.0) % [place] % (Auto) (0.0-15.0) % Eos % (Auto) (0.0-7.0) % Baso % (Auto) (0.0-1.5) % Neut # (Auto) (1.4-5.7) K/uL Lymph # (Auto) (0.6-2.4) K/uL [place] # (Auto) (0.0-0.8) K/uL Eos # (Auto) (0.0-0.7) K/uL Baso # (Auto) (0.0-0.1) K/uL Nucleated RBC % /100WBC Nucleated RBCs # K/uL INR APTT (18.6-31.3) SEC D-Dimer, Quantitative (0.0-0.50) mg/L FEU ABG pH (7.35-7.45) ABG pCO2 (35-45) mmHG ABG pO2 (80-105) mmHG ABG HCO3 (22-26) mEq/L ABG Total CO2 (23-27) mmol/L ABG Base Excess (-2.0-3.0) Sodium (136-145) mmol/L Potassium (3.5-5.1) mmol/L Chloride (98-107) mmol/L Carbon Dioxide (21.0-32.0) mmol/L BUN (7.0-18.0) mg/dL Creatinine (0.6-1.0) mg/dL Est Cr Clr Drug Dosing mL/min Estimated GFR (MDRD) ml/min Glucose (74-106) mg/dL Lactic Acid 3.8 H* (0.4-2.0) mmol/L Calcium (8.5-10.1) mg/dL Magnesium (1.8-2.4) mg/dL Total Bilirubin (0.2-1.0) mg/dL AST (15-37) IU/L ALT (14-63) IU/L Alkaline Phosphatase (46-116) U/L Troponin I (0.000-0.056) ng/mL C-Reactive Protein (0.00-0.90) mg/dL B-Natriuretic Peptide (<100) PG/ML Total Protein (6.4-8.2) g/dL Albumin (3.4-5.0) g/dL Globulin (2.6-4.0) g/dL Albumin/Globulin Ratio (0.9-1.6) Ketones NEGATIVE (NEG) Influenza Type A RNA NEGATIVE (NEGATIVE) Influenza Type B RNA NEGATIVE (NEGATIVE) SARS-CoV-2 RNA (DIXON) POSITIVE H (NEGATIVE) 04/17/21 04/17/21 04/17/21 Range/Units 04:57 04:57 09:58 WBC (4.0-11.0) K/uL RBC (4.30-5.90) M/uL Hgb (12.0-16.0) g/dL Hct (36.0-46.0) % MCV (80.0-98.0) fL MCH (27.0-32.0) pg MCHC (31.0-37.0) g/dL RDW Std Deviation (28.0-62.0) fl RDW Coeff of Andree (11.0-15.0) % Plt Count (150-400) K/uL MPV (7.40-12.00) fL Neut % (Auto) (48.0-80.0) % Lymph % (Auto) (16.0-40.0) % [place] % (Auto) (0.0-15.0) % Eos % (Auto) (0.0-7.0) % Baso % (Auto) (0.0-1.5) % Neut # (Auto) (1.4-5.7) K/uL Lymph # (Auto) (0.6-2.4) K/uL [place] # (Auto) (0.0-0.8) K/uL Eos # (Auto) (0.0-0.7) K/uL Baso # (Auto) (0.0-0.1) K/uL Nucleated RBC % /100WBC Nucleated RBCs # K/uL INR APTT (18.6-31.3) SEC D-Dimer, Quantitative (0.0-0.50) mg/L FEU ABG pH (7.35-7.45) ABG pCO2 (35-45) mmHG ABG pO2 (80-105) mmHG ABG HCO3 (22-26) mEq/L ABG Total CO2 (23-27) mmol/L ABG Base Excess (-2.0-3.0) Sodium 137 (136-145) mmol/L Potassium 4.2 (3.5-5.1) mmol/L Chloride 99 (98-107) mmol/L Carbon Dioxide 26.1 (21.0-32.0) mmol/L BUN 17 (7.0-18.0) mg/dL Creatinine 1.3 H (0.6-1.0) mg/dL Est Cr Clr Drug Dosing 27.12 mL/min Estimated GFR (MDRD) 39.1 ml/min Glucose 329 H (74-106) mg/dL Lactic Acid 1.9 (0.4-2.0) mmol/L Calcium 9.1 (8.5-10.1) mg/dL Magnesium 1.7 L (1.8-2.4) mg/dL Total Bilirubin 0.6 (0.2-1.0) mg/dL AST 32 (15-37) IU/L ALT 23 (14-63) IU/L Alkaline Phosphatase 106 (46-116) U/L Troponin I < 0.050 (0.000-0.056) ng/mL C-Reactive Protein 27.70 H (0.00-0.90) mg/dL B-Natriuretic Peptide 280 H (<100) PG/ML Total Protein 6.7 (6.4-8.2) g/dL Albumin 2.0 L (3.4-5.0) g/dL Globulin 4.7 H (2.6-4.0) g/dL Albumin/Globulin Ratio 0.4 L (0.9-1.6) Ketones (NEG) Influenza Type A RNA (NEGATIVE) Influenza Type B RNA (NEGATIVE) SARS-CoV-2 RNA (DIXON) (NEGATIVE) Meds: Medications Generic Name Dose Route Start Last Admin Trade Name Freq PRN Reason Stop Dose Admin Fentanyl Citrate 2,500 mcg/ 250 mls @ 2.5 mls/hr 04/17/21 11:49 04/17/21 12:04 Premix IV 25 mcg/hr TITRATE PRN 2.5 mls/hr Agitation Administration Protocol 25 MCG/HR Discontinued Medications Generic Name Dose Route Start Last Admin Trade Name Freq PRN Reason Stop Dose Admin Albuterol 2.5 mg 04/17/21 11:01 04/17/21 12:17 Albuterol 0.083% 2.5 Mg/3 Ml Neb Soln NEB 04/17/21 11:02 2.5 mg ONETIME ONE Administration Albuterol/Ipratropium 3 ml 04/17/21 04:42 04/17/21 05:09 Albuterol/Ipratropium 3.0-0.5 Mg/3 Ml Neb Soln NEB 04/17/21 04:43 3 ml ONETIME ONE Administration Albuterol/Ipratropium Confirm 04/17/21 11:01 04/17/21 12:17 Albuterol/Ipratropium 3.0-0.5 Mg/3 Ml Neb Soln Administered 04/17/21 11:02 Not Given Dose 3 ml .ROUTE .STK-MED ONE Albuterol/Ipratropium 3 ml 04/17/21 11:09 04/17/21 11:10 Albuterol/Ipratropium 3.0-0.5 Mg/3 Ml Neb Soln NEB 04/17/21 11:10 3 ml ONETIME ONE Administration Diltiazem HCl 120 mg 04/17/21 08:20 04/17/21 08:37 Diltiazem 120 Mg Cap.Cd PO 04/17/21 08:21 Not Given ONETIME ONE Cefepime HCl 2 gm/ Premix 50 mls @ 100 mls/hr 04/17/21 04:54 04/17/21 05:09 IV 04/17/21 05:23 100 mls/hr ONETIME ONE Administration Sodium Chloride 1,000 mls @ 999 mls/hr 04/17/21 05:47 04/17/21 05:53 Normal Saline IV 04/17/21 06:47 999 mls/hr .Bolus ONE Administration Levothyroxine Sodium 66 mcg/ 3.3 mls @ 198 mls/hr 04/17/21 09:15 04/17/21 09:10 Sodium Chloride IV 04/17/21 09:16 198 mls/hr ONETIME ONE Administration Magnesium Sulfate 25 mls @ 25 mls/hr 04/17/21 11:45 04/17/21 12:04 Magnesium Sulfate In Water 2 Gm/50 Ml IV 04/17/21 12:44 25 mls/hr ONETIME ONE Administration Fentanyl Citrate Confirm 04/17/21 12:03 04/17/21 12:17 Fentanyl 2500 Mcg In Ns 250 Ml (10 Mcg/Ml) Administered 04/17/21 12:04 Not Given Dose 250 mls @ as directed .ROUTE .STK-MED ONE Insulin Human Regular 5 unit 04/17/21 06:19 04/17/21 06:26 Insulin Regular, Human 100 Units/Ml 10 Ml Vial IVPUSH 04/17/21 06:20 5 units ONETIME ONE Administration Protocol Iopamidol 50 ml 04/17/21 06:31 04/17/21 06:31 Iopamidol 755 Mg/Ml 500 Ml Multipack Bottle IVPUSH 04/17/21 06:32 50 ml ONETIME STA Administration Levothyroxine Sodium 112 mcg 04/17/21 08:21 04/17/21 08:37 Levothyroxine 112 Mcg Tab PO 04/17/21 08:22 Not Given ONETIME ONE Lorazepam 0.5 mg 04/17/21 04:19 04/17/21 04:38 Lorazepam 2 Mg/Ml Sdv IVPUSH 04/17/21 04:20 0.5 mg ONETIME ONE Administration Lorazepam 0.5 mg 04/17/21 05:46 04/17/21 05:52 Lorazepam 2 Mg/Ml Sdv IVPUSH 04/17/21 05:47 0.5 mg ONETIME ONE Administration Methylprednisolone Sodium Succinate 125 mg 04/17/21 04:42 04/17/21 05:09 Methylprednisolone Sodium Succinate 125 Mg/2 Ml Sdv IVPUSH 04/17/21 04:43 125 mg ONETIME ONE Administration Midazolam HCl 1 mg 04/17/21 11:00 04/17/21 11:09 Midazolam 1 Mg/Ml 2 Ml Sdv IVPUSH 04/17/21 11:01 1 mg ONETIME ONE Administration Midazolam HCl Confirm 04/17/21 11:01 04/17/21 12:17 Midazolam 1 Mg/Ml 2 Ml Sdv Administered 04/17/21 11:02 Not Given Dose 2 mg .ROUTE .[facility] ONE - Re-Assessments/Exams Free Text/Narrative Re-Assessment/Exam: 04/17/21 13:58 Patient initially was signed out to me on BiPAP then. Patient became more tachypneic started desatted down to the 70s and was uncomfortable. We gave nebs and steroids and did not improve. We then called and spoke to the family about goals of care they wanted everything done we intubated the patient. Patient's been sad above 90% on the ventilator. Patient currently has been dropping down from the 50s up to the 90s. We did a EKG did show AV paced patient has a pacemaker. Patient will be admitted to the ICU for further care. Departure - Departure Time of Disposition: 13:59 Condition: Serious - Discharge Information *PRESCRIPTION DRUG MONITORING PROGRAM REVIEWED*: Not Applicable *COPY OF PRESCRIPTION DRUG MONITORING REPORT IN PATIENT LUCI: Not Applicable Critical Care Note - Critical Care Note Total Time (mins): 65 Comments: Critical Care Procedure Note Authorized and Performed by: Dr. Mark Total critical care time: Approximately Due to a high probability of clinically significant, life threatening deterioration, the patient required my highest level of preparedness to intervene emergently and I personally spent this critical care time directly and personally managing the patient. This critical care time included obtaining a history; examining the patient; pulse oximetry; ordering and review of studies; arranging urgent treatment with development of a management plan; evaluation of patient's response to treatment; frequent reassessment; and, discussions with other providers. This critical care time was performed to assess and manage the high probability of imminent, life-threatening deterioration that could result in multi-organ failure. It was exclusive of separately billable procedures and treating other patients and teaching time. Sepsis Event Note (ED) - Focused Exam Vital Signs: Vital Signs Temp Pulse Resp BP Pulse Ox 04/17/21 12:15 96.7 F L 89 20 184/80 H 95 04/17/21 11:00 120 H 38 H 130/85 78 L 04/17/21 10:00 96 34 H 110/70 92 L 04/17/21 09:00 96.9 F 104 H 36 H 112/67 95 04/17/21 08:00 102 H 34 H 100/58 L 95 04/17/21 07:30 102 H 36 H 111/72 96 04/17/21 06:34 113 H 37 H 122/48 L 99 04/17/21 05:42 110 H 34 H 139/68 93 L 04/17/21 04:20 98.9 F 110 H 28 H 159/73 H 87 L - My Orders Last 24 Hours: My Active Orders 04/17/21 11:01 RT Aerosol Therapy [RC] ASDIRECTED 04/17/21 11:09 RT Aerosol Therapy [RC] ASDIRECTED 04/17/21 11:49 fentaNYL/Normal Saline [fentaNYL 2500 MCG in NS 250 ML (10 MCG/ML)] 2,500 mcg Premix Bag 1 bag IV TITRATE 04/17/21 12:11 Ventilator Assessment [RT Ventilator, Adult] [RC] ASDIRECTED - Assessment/Plan Last 24 Hours: My Active Orders 04/17/21 11:01 RT Aerosol Therapy [RC] ASDIRECTED 04/17/21 11:09 RT Aerosol Therapy [RC] ASDIRECTED 04/17/21 11:49 fentaNYL/Normal Saline [fentaNYL 2500 MCG in NS 250 ML (10 MCG/ML)] 2,500 mcg Premix Bag 1 bag IV TITRATE 04/17/21 12:11 Ventilator Assessment [RT Ventilator, Adult] [RC] ASDIRECTED
[2021-04-17] MEDS ORDERED: methylPREDNISolone Sodium Succinate 125 MG/2 ML SDV IVPUSH ONE (04:42)
[2021-04-17] MEDS ORDERED: Albuterol/Ipratropium 3.0-0.5 MG/3 ML Neb Soln NEB ONE ×2 (04:42→11:09)
[2021-04-17] MEDS ORDERED: Cefepime 2 GM in Premix Bag 1 BAG IV ONE (04:54)
--- NOTE | 2021-04-17 05:13 | CR ---
INDICATION: Shortness of breath TECHNIQUE: Portable upright AP view of the chest COMPARISON: None FINDINGS: There is patchy pulmonary opacity throughout the right lung and in the left lung base. The left upper lung is aerated. There is no appreciable pleural effusion or pneumothorax. The cardiac silhouette is borderline enlarged. Pacemaker is in place. The visualized osseous structures are unremarkable. IMPRESSION: Patchy opacity throughout the right lung and in the left lung base. Findings are most likely of infectious nature. COVID-19 pneumonia cannot be excluded. Correlate clinically. Dictated by Nicolas Khan MD @ 04/17/2021 5:12:59 AM (Electronically Signed)
[2021-04-17 05:16] LABS: CORONAVIRUS COVID-19 NAA POSITIVE (NEGATIVE); INFLUENZA A NAA NEGATIVE (NEGATIVE); INFLUENZA B NAA NEGATIVE (NEGATIVE)
[2021-04-17 05:36] LABS: BLOOD UREA NITROGEN,BUN 17 mg/dL (7.0-18.0); CARBON DIOXIDE,CO2 26.1 mmol/L (21.0-32.0); CHLORIDE,CL 99 mmol/L (98-107); GLUCOSE RANDOM 329 mg/dL (74-106); POTASSIUM,K 4.2 mmol/L (3.5-5.1); SODIUM,NA 137 mmol/L (136-145)
[2021-04-17] MEDS ORDERED: Sodium Chloride 0.9% 1,000 ML IV ONE (05:47)
[2021-04-17] MEDS ORDERED: Insulin Regular, Human 100 Units/ML 10 ML Vial IVPUSH ONE (06:19)
[2021-04-17] MEDS ORDERED: Iopamidol 755 MG/ML 500 ML Multipack Bottle IVPUSH STA (06:31)
--- NOTE | 2021-04-17 06:55 | CT ---
INDICATION: COVID. Dyspnea. Elevated D-dimer. Assess for pulmonary embolus. COMPARISON: A similar examination dated March 22, 2021 TECHNIQUE: : CT examination of the chest was performed with the uneventful intravenous administration of 15 cc of Isovue 370 while thin axial sections were obtained from above the apices of the lungs to the lung bases. Please note that all CT scans at this facility use dose modulation, iterative reconstruction, and/or weight-based dosing when appropriate to reduce radiation dose to as low as reasonably achievable. FINDINGS: : HEART and MEDIASTINUM: The heart is mildly enlarged. There is mediastinal lymphadenopathy which is likely reactive. There is no significant pericardial fluid a left-sided pacer is noted with leads ending in the right atrium and the right ventricle PULMONARY ARTERIAL CIRCULATION: Limited due to motion but there is no visible intraluminal filling defect to suggest pulmonary embolus. Small peripheral emboli would likely be inapparent on this study LUNGS: Diffuse multifocal airspace disease. This most affects the bases cut, right greater than left and diffusely involves the right lung. This is a combination ground-glass, volume loss and trung consolidation. PLEURAL SPACES: Small left effusion. Small to moderate right effusion VISUALIZED UPPER ABDOMEN: Hepatic steatosis. Otherwise, the limited visualized upper abdominal structures appear normal. OSSEOUS STRUCTURES: Age-appropriate appearance. No acute fracture or destructive process. TUBES and LINES: None. IMPRESSION: 1. Limited by motion but there is no indication of pulmonary embolus. Small peripheral emboli would likely be inapparent on this study. 2. Moderate to severe diffuse multifocal airspace disease, right greater than left. This is a combination of ground-glass opacification, trung consolidation volume loss apparent effusions, right greater than left. The findings have globally worsened since the prior study. Nonspecific but consistent with COVID related lung disease 3. Enlarged heart. Likely reactive mediastinal lymphadenopathy. Pacer. Hepatic steatosis. 4. Please note that all CT scans at this facility use dose modulation, iterative reconstruction, and/or weight-based dosing when appropriate to reduce radiation dose to as low as reasonably achievable. Dictated by Lucien Alvarez MD @ 04/17/2021 6:53:51 AM (Electronically Signed)
[2021-04-17] MEDS ORDERED: Diltiazem 120 MG Cap.CD PO ONE (08:20)
[2021-04-17] MEDS ORDERED: Levothyroxine 112 MCG Tab PO ONE (08:21)
[2021-04-17] MEDS ORDERED: LEVOTHYROXINE IV ONE (09:15)
[2021-04-17] MEDS ORDERED: SODIUM CHLORIDE 0.9% IV ONE (09:15)
[2021-04-17] MEDS ORDERED: Midazolam 1 MG/ML 2 ML SDV IVPUSH ONE (11:00)
[2021-04-17] MEDS ORDERED: Albuterol/Ipratropium 3.0-0.5 MG/3 ML Neb Soln ONE (11:01)
[2021-04-17] MEDS ORDERED: Albuterol 0.083% 2.5 MG/3 ML Neb Soln NEB ONE (11:01)
[2021-04-17] MEDS ORDERED: Midazolam 1 MG/ML 2 ML SDV ONE (11:01)
[2021-04-17] MEDS ORDERED: Magnesium Sulfate (4.06 MEQ/ML) 5 GM/10 ML SDV IV STA (11:30)
[2021-04-17] MEDS ORDERED: Magnesium Sulfate/Water 25 ML IV ONE (11:45)
[2021-04-17] MEDS ORDERED: fentaNYL/Normal Saline 250 ML ONE (12:03)
[2021-04-17] MEDS: fentaNYL/Normal Saline 2,500 MCG in Premix Bag 1 BAG IV PRN (12:04)
--- NOTE | 2021-04-17 12:31 | CR ---
Indication: Intubation Technique: Chest 1 view Comparison: Same date at 4:41 a.m. Findings/Impression: Endotracheal tube tip terminates at the level of the proximal right mainstem bronchus and should be retracted approximately 3.5 cm. A gastric drainage tube tip terminates at the level of the gastric fundus. Patchy bilateral pulmonary infiltrates are unchanged and are concerning for infection, including COVID-19. There is no pneumothorax. There is a dual lead left-sided pacemaker. No acute osseous abnormality. This was discussed with Shaunna An NP at 12:29 p.m. on April 17, 2021. Dictated by Chyna Lim MD @ 04/17/2021 12:30:02 PM (Electronically Signed)
--- NOTE | 2021-04-17 13:35 | CR ---
INDICATION: Tube pulled back. TECHNIQUE: Chest 1 view. COMPARISON: Chest radiograph 04/17/2021 at 11:55 a.m. FINDINGS: The endotracheal tube has been retracted, with tip now 1.7 cm above the phoebe. Enteric tube with tip and side hole in the stomach. There is gaseous distention of the stomach. Unchanged extensive bilateral pulmonary infiltrates, worse on the right. No large effusions. No pneumothorax. Normal heart size. Left chest pacemaker with leads in stable position. The bones are unremarkable. IMPRESSION: 1. Endotracheal tube has been retracted, with tip now 1.7 cm above the phoebe. 2. Unchanged extensive bilateral pulmonary infiltrates. Dictated by Edwige Gloria MD @ 04/17/2021 1:33:56 PM (Electronically Signed)
--- NOTE | 2021-04-17 14:39 | PCM.HP.2 ---
H&P History of Present Illness - General Date of Service: 04/17/21 Admit Problem/Dx: Admission Diagnosis/Problem Admission Diagnosis/Problem Pneumonia// resp failure. Source of Information: Provider, RN Notes Reviewed History Limitations: Reports: Respiratory Distress, Other (intubated and sedated.) - History of Present Illness Initial Comments - Free Text/Narative: 04/17/21 81 year old female with resp failure and hx of covid 3 weeks ago now admitted after deteriorating over past 24 hours with desats to 70s and abg showing pao2 of 55 on bipap. family involved and requested intubation for resp failure a nd sedated and doing better since then . unable to find other bed and family aware of her critical status. pmh of dm/ cad/pacemaker for heart block and bradycardia,copd,pulmonary interstitial disease and o.a. was on chronic o2 before and after covid but was not wearing at home. still active and lives alone. patient sedated and intubated. diffuse crackles in rt and left lungs. paced rythum in 50s . lab pos covid /neg influenza and rsv. chest xray shows extensive infiltrate on rt and less on left. intubated. tube in good position. labs crp 23. d dimer high. bnp elevated. trop normal see abg x 2 . see xrays. assess:plan pneumonia: possible residual covid pneumonia but also could be bacterial sec. pneumonia and needs resp support and antibiotics / i.v support . she is high high risk if she has covid recently a nd is not recovering but family wants to be aggressive. she is at risk for all long hauler complications but emperic eval of possible p.e difficult at this time given she needs antibiotics broad spectrum. if she deteriorates a nd needs cpr on anticoagulation and given age and status and condition, cpr and would undoubtably have fractures a nd likely organ failure as a result and is not likely to save her and will cause her harm . this will be discussed with family but understand their desire to be aggressive to try to reverse this. boh Onset of Symptoms: Reports: Gradual Duration of Symptoms: Reports: Day(s): (1) Location: Reports: Chest Improves with: Reports: None Worsens with: Reports: None Associated Symptoms: Reports: cough w sputum, Shortness of Breath, Weakness - Related Data Allergies/Adverse Reactions: Allergies Allergy/AdvReac Type Severity Reaction Status Date / Time No Known Allergies Allergy Verified 04/17/21 04:38 Home Medications: Home Meds Levothyroxine Sodium [Synthroid] 112 mcg PO DAILY 11/22/17 [History] Albuterol Sulfate [Albuterol Sulfate Hfa] 2 inh IH QID PRN 03/22/21 [History] Codeine/Promethazine HCl [Promethazine-Codeine Syrup] 5 ml PO Q4H PRN 03/22/21 [History] Diclofenac Sodium 50 mg PO BID PRN 03/22/21 [History] FLUoxetine [PROzac] 10 mg PO DAILY 03/22/21 [History] Furosemide 20 mg PO DAILY 03/22/21 [History] Glimepiride 2 mg PO BIDMEALS 03/22/21 [History] Insulin Degludec [Tresiba] 10 unit SUBCUT BEDTIME 03/22/21 [History] Insulin Lispro [Humalog] 0 unit SUBCUT TIDMEALS MDD 20 UNITS 03/22/21 [History] Montelukast Sodium 10 mg PO BEDTIME 03/22/21 [History] Potassium Chloride [Klor-Con 10] 10 meq PO Q2D 03/22/21 [History] Sacubitril/Valsartan [Entresto 97 mg-103 mg Tablet] 97 - 103 mg PO BID 03/22/21 [History] Sildenafil [Revatio] 10 mg PO BID 03/22/21 [History] Tiotropium BR/Olodaterol HCL [Stiolto Respimat] 2 inh IH DAILY 03/22/21 [History] dilTIAZem HCL [Diltiazem 24Hr ER (Cd)] 120 mg PO DAILY 03/22/21 [History] Albuterol Sulfate [Albuterol Sulfate Hfa] 8.5 gm IH Q4H PRN #1 hfa.aer.ad 03/31/21 [Rx] LORazepam [Ativan] 1 mg PO Q8H #12 tablet 03/31/21 [Rx] Past Medical History HEENT History: Reports: Hard of Hearing, Impaired Vision Cardiovascular History: Reports: CAD, High Cholesterol, Hypertension, Pacemaker Respiratory History: Reports: COPD, Sleep Apnea Other Respiratory History: Uses C-PAP Gastrointestinal History: Reports: None Genitourinary History: Reports: None OPEN CUT EXAMINER History: Reports: , Other (See Below) Other OB/BYN History: Bilateral ovary and fallopian tube removed Musculoskeletal History: Reports: Arthritis, Other (See Below) 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 Neurological History: Reports: None Psychiatric History: Reports: None Endocrine/Metabolic History: Reports: Diabetes, Type II, Hypothyroidism, Other (See Below) Other Endocrine/Metabolic History: Graves Disease Hematologic History: Reports: None Oncologic (Cancer) History: Reports: Ovarian, Other (See Below) Other Oncologic History: Mass removed ovary - Infectious Disease History Infectious Disease History: Reports: Chicken Pox, Measles, Mumps - Past Surgical History Head Surgeries/Procedures: Reports: None HEENT Surgical History: Reports: Cataract Surgery Cardiovascular Surgical History: Reports: None GI Surgical History: Reports: Hernia Repair/Other Other GI Surgeries/Procedures: In June, Female Surgical History: Reports: Hysterectomy, Oophorectomy Endocrine Surgical History: Reports: Thyroidectomy Other Endocrine Surgeries/Procedures: Radioactive iodine treatment destroyed the thyroid gland. Oncologic Surgical History: Reports: None Social & Family History - Family History Family Medical History: Unobtainable - Tobacco Use Tobacco Use Status *Q: Never Tobacco User - Caffeine Use Caffeine Use: Reports: None - Recreational Drug Use Recreational Drug Use: No H&P Review of Systems - Review of Systems: Review Of Systems: See Below General: Reports: No Symptoms Pulmonary: Reports: Shortness of Breath, Cough Cardiovascular: Reports: No Symptoms Gastrointestinal: Reports: No Symptoms Genitourinary: Reports: No Symptoms Musculoskeletal: Reports: No Symptoms Skin: Reports: No Symptoms Psychiatric: Reports: No Symptoms Neurological: Reports: No Symptoms Hematologic/Lymphatic: Reports: No Symptoms Immunologic: Reports: No Symptoms Exam - Exam Exam: See Below - Vital Signs Vital Signs: Last Vital Signs Temp 35.9 C L 04/17/21 12:15 Pulse 89 04/17/21 12:15 Resp 20 04/17/21 12:15 BP 184/80 H 04/17/21 12:15 Pulse Ox 95 04/17/21 12:15 Weight: 73.936 kg - Exam Quality Assessment: Supplemental Oxygen General: Sedated HEENT: PERRLA, Hearing Intact, Mucosa Moist & [place], Nares Patent, Normal Nasal Septum, Posterior Pharynx Clear, Conjunctiva Clear, EOMI, EACs Clear, TMs Clear Neck: Supple, Trachea Midline, 2 Lungs: Crackles, Rhonchi Cardiovascular: Bradycardia, Gallop/S4 GI/Abdominal Exam: Normal Bowel Sounds, Soft, Non-Tender, No Organomegaly, No Distention, No Abnormal Bruit, No Mass, Pelvis Stable (Female) Exam: No: Deferred Rectal (Female) Exam: No: Deferred Back Exam: Normal Inspection, Full Range of Motion, NT Extremities: Normal Inspection, Normal Range of Motion, Non-Tender, Normal Capillary Refill, Pedal Edema. No: No Pedal Edema Skin: Warm, Dry, Intact Neurological: Cranial Nerves Intact, Reflexes Equal Bilateral Neuro Extensive - Mental Status: Alert, Oriented x3, Normal Mood/Affect, Normal Cognition Neuro Extensive - Motor, Sensory, Reflexes: CN II-XII Intact, Normal Gait, Normal Reflexes Psychiatric: Alert, Normal Affect, Normal Mood - Patient Data Lab Results Last 24 hrs: Laboratory Results - last 24 hr 04/17/21 04/17/21 04/17/21 Range/Units 04:30 04:30 04:30 WBC 16.38 H (4.0-11.0) K/uL RBC 4.34 (4.30-5.90) M/uL Hgb 12.6 (12.0-16.0) g/dL Hct 37.3 (36.0-46.0) % MCV 85.9 (80.0-98.0) fL MCH 29.0 (27.0-32.0) pg MCHC 33.8 (31.0-37.0) g/dL RDW Std Deviation 45.6 (28.0-62.0) fl RDW Coeff of Andree 15 (11.0-15.0) % Plt Count 349 (150-400) K/uL MPV 9.70 (7.40-12.00) fL Neut % (Auto) 79.6 (48.0-80.0) % Lymph % (Auto) 10.5 L (16.0-40.0) % Mccone % (Auto) 7.0 (0.0-15.0) % Eos % (Auto) 2.7 (0.0-7.0) % Baso % (Auto) 0.2 (0.0-1.5) % Neut # (Auto) 13.0 H (1.4-5.7) K/uL Lymph # (Auto) 1.7 (0.6-2.4) K/uL Mccone # (Auto) 1.1 H (0.0-0.8) K/uL Eos # (Auto) 0.5 (0.0-0.7) K/uL Baso # (Auto) 0.0 (0.0-0.1) K/uL Nucleated RBC % 0.0 /100WBC Nucleated RBCs # 0 K/uL INR 1.04 APTT 24.8 (18.6-31.3) SEC D-Dimer, Quantitative 13.40 H (0.0-0.50) mg/L FEU ABG pH 7.40 (7.35-7.45) ABG pCO2 39 (35-45) mmHG ABG pO2 52 L (80-105) mmHG ABG HCO3 24 (22-26) mEq/L ABG Total CO2 21.6 L (23-27) mmol/L ABG Base Excess -0.9 (-2.0-3.0) Sodium (136-145) mmol/L Potassium (3.5-5.1) mmol/L Chloride (98-107) mmol/L Carbon Dioxide (21.0-32.0) mmol/L BUN (7.0-18.0) mg/dL Creatinine (0.6-1.0) mg/dL Est Cr Clr Drug Dosing mL/min Estimated GFR (MDRD) ml/min Glucose (74-106) mg/dL Lactic Acid (0.4-2.0) mmol/L Calcium (8.5-10.1) mg/dL Magnesium (1.8-2.4) mg/dL Total Bilirubin (0.2-1.0) mg/dL AST (15-37) IU/L ALT (14-63) IU/L Alkaline Phosphatase (46-116) U/L Troponin I (0.000-0.056) ng/mL C-Reactive Protein (0.00-0.90) mg/dL B-Natriuretic Peptide (<100) PG/ML Total Protein (6.4-8.2) g/dL Albumin (3.4-5.0) g/dL Globulin (2.6-4.0) g/dL Albumin/Globulin Ratio (0.9-1.6) Ketones (NEG) Influenza Type A RNA (NEGATIVE) Influenza Type B RNA (NEGATIVE) SARS-CoV-2 RNA (DIXON) (NEGATIVE) 04/17/21 04/17/21 04/17/21 Range/Units 04:30 04:30 04:57 WBC (4.0-11.0) K/uL RBC (4.30-5.90) M/uL Hgb (12.0-16.0) g/dL Hct (36.0-46.0) % MCV (80.0-98.0) fL MCH (27.0-32.0) pg MCHC (31.0-37.0) g/dL RDW Std Deviation (28.0-62.0) fl RDW Coeff of Andree (11.0-15.0) % Plt Count (150-400) K/uL MPV (7.40-12.00) fL Neut % (Auto) (48.0-80.0) % Lymph % (Auto) (16.0-40.0) % Mccone % (Auto) (0.0-15.0) % Eos % (Auto) (0.0-7.0) % Baso % (Auto) (0.0-1.5) % Neut # (Auto) (1.4-5.7) K/uL Lymph # (Auto) (0.6-2.4) K/uL Mccone # (Auto) (0.0-0.8) K/uL Eos # (Auto) (0.0-0.7) K/uL Baso # (Auto) (0.0-0.1) K/uL Nucleated RBC % /100WBC Nucleated RBCs # K/uL INR APTT (18.6-31.3) SEC D-Dimer, Quantitative (0.0-0.50) mg/L FEU ABG pH (7.35-7.45) ABG pCO2 (35-45) mmHG ABG pO2 (80-105) mmHG ABG HCO3 (22-26) mEq/L ABG Total CO2 (23-27) mmol/L ABG Base Excess (-2.0-3.0) Sodium (136-145) mmol/L Potassium (3.5-5.1) mmol/L Chloride (98-107) mmol/L Carbon Dioxide (21.0-32.0) mmol/L BUN (7.0-18.0) mg/dL Creatinine (0.6-1.0) mg/dL Est Cr Clr Drug Dosing mL/min Estimated GFR (MDRD) ml/min Glucose (74-106) mg/dL Lactic Acid 3.8 H* (0.4-2.0) mmol/L Calcium (8.5-10.1) mg/dL Magnesium (1.8-2.4) mg/dL Total Bilirubin (0.2-1.0) mg/dL AST (15-37) IU/L ALT (14-63) IU/L Alkaline Phosphatase (46-116) U/L Troponin I (0.000-0.056) ng/mL C-Reactive Protein (0.00-0.90) mg/dL B-Natriuretic Peptide (<100) PG/ML Total Protein (6.4-8.2) g/dL Albumin (3.4-5.0) g/dL Globulin (2.6-4.0) g/dL Albumin/Globulin Ratio (0.9-1.6) Ketones NEGATIVE (NEG) Influenza Type A RNA NEGATIVE (NEGATIVE) Influenza Type B RNA NEGATIVE (NEGATIVE) SARS-CoV-2 RNA (DIXON) POSITIVE H (NEGATIVE) 04/17/21 04/17/21 04/17/21 Range/Units 04:57 04:57 09:58 WBC (4.0-11.0) K/uL RBC (4.30-5.90) M/uL Hgb (12.0-16.0) g/dL Hct (36.0-46.0) % MCV (80.0-98.0) fL MCH (27.0-32.0) pg MCHC (31.0-37.0) g/dL RDW Std Deviation (28.0-62.0) fl RDW Coeff of Andree (11.0-15.0) % Plt Count (150-400) K/uL MPV (7.40-12.00) fL Neut % (Auto) (48.0-80.0) % Lymph % (Auto) (16.0-40.0) % Mccone % (Auto) (0.0-15.0) % Eos % (Auto) (0.0-7.0) % Baso % (Auto) (0.0-1.5) % Neut # (Auto) (1.4-5.7) K/uL Lymph # (Auto) (0.6-2.4) K/uL Mccone # (Auto) (0.0-0.8) K/uL Eos # (Auto) (0.0-0.7) K/uL Baso # (Auto) (0.0-0.1) K/uL Nucleated RBC % /100WBC Nucleated RBCs # K/uL INR APTT (18.6-31.3) SEC D-Dimer, Quantitative (0.0-0.50) mg/L FEU ABG pH (7.35-7.45) ABG pCO2 (35-45) mmHG ABG pO2 (80-105) mmHG ABG HCO3 (22-26) mEq/L ABG Total CO2 (23-27) mmol/L ABG Base Excess (-2.0-3.0) Sodium 137 (136-145) mmol/L Potassium 4.2 (3.5-5.1) mmol/L Chloride 99 (98-107) mmol/L Carbon Dioxide 26.1 (21.0-32.0) mmol/L BUN 17 (7.0-18.0) mg/dL Creatinine 1.3 H (0.6-1.0) mg/dL Est Cr Clr Drug Dosing 27.12 mL/min Estimated GFR (MDRD) 39.1 ml/min Glucose 329 H (74-106) mg/dL Lactic Acid 1.9 (0.4-2.0) mmol/L Calcium 9.1 (8.5-10.1) mg/dL Magnesium 1.7 L (1.8-2.4) mg/dL Total Bilirubin 0.6 (0.2-1.0) mg/dL AST 32 (15-37) IU/L ALT 23 (14-63) IU/L Alkaline Phosphatase 106 (46-116) U/L Troponin I < 0.050 (0.000-0.056) ng/mL C-Reactive Protein 27.70 H (0.00-0.90) mg/dL B-Natriuretic Peptide 280 H (<100) PG/ML Total Protein 6.7 (6.4-8.2) g/dL Albumin 2.0 L (3.4-5.0) g/dL Globulin 4.7 H (2.6-4.0) g/dL Albumin/Globulin Ratio 0.4 L (0.9-1.6) Ketones (NEG) Influenza Type A RNA (NEGATIVE) Influenza Type B RNA (NEGATIVE) SARS-CoV-2 RNA (DIXON) (NEGATIVE) Result Diagrams: 04/17/21 04:30 04/17/21 04:57 Adal Results Last 24 hrs: Microbiology 04/17/21 04:57 Anaerobic Blood Culture - Final Blood - Venous - Lab Draw Sepsis Event Note - Evaluation Sepsis Screening Result: Possible Sepsis Risk - Focused Exam Vital Signs: Vital Signs Temp Pulse Resp BP Pulse Ox 04/17/21 12:15 35.9 C L 89 20 184/80 H 95 04/17/21 11:00 120 H 38 H 130/85 78 L 04/17/21 10:00 96 34 H 110/70 92 L 04/17/21 09:00 36.1 C 104 H 36 H 112/67 95 04/17/21 08:00 102 H 34 H 100/58 L 95 04/17/21 07:30 102 H 36 H 111/72 96 04/17/21 06:34 113 H 37 H 122/48 L 99 04/17/21 05:42 110 H 34 H 139/68 93 L 04/17/21 04:20 37.2 C 110 H 28 H 159/73 H 87 L - Problem List (1) Pneumonia SNOMED Code(s): 576872923 ICD Code: J18.9 - PNEUMONIA, UNSPECIFIED ORGANISM Status: Acute Current Visit: Yes Qualifiers: Pneumonia type: due to unspecified organism Laterality: bilateral Lung location: lower lobe of lung Qualified Code(s): J18.9 - Pneumonia, unspecified organism (2) Bradycardia SNOMED Code(s): 17526251 ICD Code: R00.1 - BRADYCARDIA, UNSPECIFIED Status: Acute Priority: Low Current Visit: No Onset Date: ~04/17/21 Problem Details: paced rythum at 52 bpm / (3) COVID-19 SNOMED Code(s): 583594717 ICD Code: U07.1 - COVID-19 Status: Acute Priority: High Current Visit: No Onset Date: ~03/18/21 (4) Full code status SNOMED Code(s): 369906619 ICD Code: Z78.9 - OTHER SPECIFIED HEALTH STATUS Status: Acute Priority: High Current Visit: No Onset Date: ~04/17/21 Problem Details: patient is full code. Problem List Initiated/Reviewed/Updated: Yes Orders Last 24hrs: Active Orders 24 hr Category Date Time Status Admission Status [Patient Status] [ADT] Stat ADT 04/17/21 13:59 Active Cardiac Monitoring [RC] . DIRECTED Care 04/17/21 04:19 Active Pulse Oximetry [RC] ASDIRECTED Care 04/17/21 04:19 Active RT Aerosol Therapy [RC] ASDIRECTED Care 04/17/21 04:42 Active RT Aerosol Therapy [RC] ASDIRECTED Care 04/17/21 11:01 Active RT Aerosol Therapy [RC] ASDIRECTED Care 04/17/21 11:09 Active RT BiPAP/CPAP [RC] ASDIRECTED Care 04/17/21 05:51 Active Ventilator Assessment [RT Ventilator, Adult] [RC] Care 04/17/21 12:11 Active ASDIRECTED CULTURE BLOOD [BC] Stat Lab 04/17/21 04:30 Received CULTURE BLOOD [BC] Stat Lab 04/17/21 04:57 Results UA W/ADAL RFLX IF INDICATED [URIN] Stat Lab 04/17/21 04:20 Ordered fentaNYL/Normal Saline [fentaNYL 2500 MCG in NS 250 ML Med 04/17/21 11:49 Active (10 MCG/ML)] 2,500 mcg Premix Bag 1 bag IV TITRATE Blood Culture x2 Reflex Set [OM.PC] Stat Oth 04/17/21 04:42 Ordered Saline Lock Insert [OM.PC] Stat Oth 04/17/21 04:19 Ordered Medication Orders Fentanyl Citrate 2,500 mcg/ (Premix) 250 mls @ 2.5 mls/hr IV TITRATE PRN; Protocol PRN Reason: Agitation Last Admin: 04/17/21 12:04 Dose: 25 mcg/hr, 2.5 mls/hr Documented by: ULISES Assessment/Plan Comment:: 04/17/21 81 year old female with resp failure and hx of covid 3 weeks ago now admitted after deteriorating over past 24 hours with desats to 70s and abg showing pao2 of 55 on bipap. family involved and requested intubation for resp failure a nd sedated and doing better since then . unable to find other bed and family aware of her critical status. pmh of dm/ cad/pacemaker for heart block and bradycardia,copd,pulmonary interstitial disease and o.a. was on chronic o2 before and after covid but was not wearing at home. still active and lives alone. patient sedated and intubated. diffuse crackles in rt and left lungs. paced rythum in 50s . lab pos covid /neg influenza and rsv. chest xray shows extensive infiltrate on rt and less on left. intubated. tube in good position. labs crp 23. d dimer high. bnp elevated. trop normal see abg x 2 . see xrays. assess:plan pneumonia: possible residual covid pneumonia but also could be bacterial sec. pneumonia and needs resp support and antibiotics / i.v support . she is high high risk if she has covid recently a nd is not recovering but family wants to be aggressive. she is at risk for all long hauler complications but emperic eval of possible p.e difficult at this time given she needs antibiotics broad spectrum. if she deteriorates a nd needs cpr on anticoagulation and given age and status and condition, cpr and would undoubtably have fractures a nd likely organ failure as a result and is not likely to save her and will cause her harm . this will be discussed with family but understand their desire to be aggressive to try to reverse this. boh - Mortality Measure Prognosis:: Poor
[2021-04-17] MEDS ORDERED: Morphine 2 MG/ML SYRINGE IVPUSH PRN (14:50)
[2021-04-17] MEDS ORDERED: Albuterol 0.083% 2.5 MG/3 ML Neb Soln NEB PRN (14:50)
[2021-04-17] MEDS ORDERED: Glucagon,Human Recombinant 1 MG Vial IM PRN ×3 (15:28→17:27)
[2021-04-17] MEDS ORDERED: 50% Dextrose in Water 50 ML Syringe IVPUSH PRN ×3 (15:28→17:27)
[2021-04-17] MEDS ORDERED: Enoxaparin 30 MG/0.3 ML Syringe SUBCUT SCH (16:00)
[2021-04-17] MEDS ORDERED: propofoL 100 ML ONE (16:06)
[2021-04-17] MEDS: propofoL 100 ML IV SCH ×3 (16:52→22:15)
[2021-04-17] MEDS: Dextrose 5%-0.45% NaCl 1,000 ML IV SCH (16:55)
[2021-04-17] MEDS: Insulin Aspart 100 Units/ML 3 ML Pen SUBCUT SCH (17:25)
[2021-04-17] MEDS: Piperacillin/Tazobactam 4.5 GM in Sodium Chloride 0.9% 100 ML IV SCH (17:39)
[2021-04-17] MEDS: methylPREDNISolone Sodium Succinate 125 MG/2 ML SDV IVPUSH SCH (17:39)
[2021-04-17] MEDS ORDERED: Insulin Glargine,Human Rec. Analog 100 Units/ML 3 ML Pen SUBCUT ONE (18:00)
[2021-04-17] MEDS ORDERED: Insulin Aspart 100 Units/ML 3 ML Pen SUBCUT ONE (18:00)
[2021-04-17] MEDS ORDERED: Levofloxacin/Dextrose 5%-Water 750 MG in Premix Bag 1 BAG IV SCH (18:00)
[2021-04-17] MEDS ORDERED: Pantoprazole 40 MG/10 ML Syringe IVPUSH SCH (21:00)
--- NOTE | 2021-04-17 21:09 | PN ---
THC Physician - Brief Progress [id number]/27/2021 20:53[facility] Afsaneh Max, ADONIS - GILMARN (YOEL) - MWN ONEILCHAYA WADEMitesh, COVID+Date of Service 04/17/2021 20:53H PI/Events of Note Case discussed with RN. 81 year old F with previous COVID admitted with septic ethel ck/acute resp failure/PNA. Being treated with fluids, abx, steroids, and now on levo for hemodynamic support.Recs include: hemodynamic monitoring, wean pressors as tolerated, echo when available, vent management, VAP bundle, CXR, ABG, GI and DVT prophylaxis, emperic abx, follow cultures, trend LA, rep lace lytes as needed, glycemic monitoring- on SSI at present and my need improved glycemic coverage i f remains high, pain control, neuro checks, sedation with daily vacation.Interventions Minor-Communic ation with other healthcare providers and/or family
[2021-04-17] MEDS: Albuterol 0.083% 2.5 MG/3 ML Neb Soln NEB SCH (21:22)
[2021-04-17] MEDS ORDERED: Furosemide 20 MG/2 ML VIAL IVPUSH ONE (22:15)
--- NOTE | 2021-04-17 23:16 | PCM.SN.2 ---
Arterial Line Insertion - Arterial Line Insertion Arterial Line Indication: hemodynamic monitoring Site: radial (R) Allens test: negative Prep: CDC/MBT Guidelines, Sterile Drapes, Chlorhexidine Gauge: 20Fr (20 gauge arrow catheter) Local Anesthesia - Lidocaine (Xylocaine): lidocaine 1 % Local Anesthetic Volume: Other (no local used. patient sedated) Ultrasound guided: No Secured with suture: No Dressing applied: by provider, op-site dressing Complications: No
--- NOTE | 2021-04-17 23:21 | PCM.PR.CLI ---
Central Line Insertion - Central Line Insertion Site: internal jugular (R) Prep: CDC/MBT Guidelines, Sterile Drapes, Chlorhexidine Lumen: triple Gauge: 7Fr Local Anesthesia - Lidocaine (Xylocaine): 0.5% Plain Local Anesthetic Volume: 1cc Ultrasound guided: Yes CL Complications: No Secured with suture: Yes Post placement confirmation: CXR, all ports aspirated, all ports flushed CXR post-procedure: no pneumothorax, no hemothorax Dressing applied: by provider, chlorhexidine disc used, op-site dressing Central line comment: 1st attempt when getting ready to thread the wire blood return looked arterial. Withdrew needle and held pressure for several minutes. 2nd attempt blood return looked venous, wire threaded easily, no ectopy on the monitor, catheter threaded and secured, all ports aspirated and flushed.
--- NOTE | 2021-04-17 23:56 | CR ---
INDICATION: Central line placement TECHNIQUE: Chest radiograph 1 view COMPARISON: 04/17/2021 FINDINGS: Mediastinum: The mediastinum is normal in appearance. The heart silhouette is normal in size and morphology. The endotracheal tube tip is positioned 3 cm from the phoebe. There is a left cardiac pacer present with leads in the right atrium and right ventricle. Right IJ line has been placed with the tip in SVC. Lung: Ground-glass infiltrates in the lung noted without change. The ground-glass infiltrates in the lung have significantly decreased in the interval. No pneumothorax is identified. Bone and Soft tissue: Unremarkable for age. IMPRESSIONS: 1. The ground-glass infiltrates in the lung have significantly decreased in the interval. 2. Right IJ line has been placed with the tip in SVC. Dictated by Zain Mehta MD @ 04/17/2021 11:55:20 PM Dictated by: Zain Mehta MD @ 04/17/2021 23:55:26 (Electronically Signed)
--- NOTE | 2021-04-18 00:23 | PN ---
THC Physician - Brief Progress [id number]/28/2021 00:21[facility] lea [place], ADONIS - CARMEAL (YOEL) - CHAYA YLLE COVID+Date of Service 04/18/2021 00:21H PI/Events of Note Discussed with RN: pt hyperglycemic > 450.Plan: start insulin drip for improved gly cemic control, follow labs.Interventions Minor-Communication with other healthcare providers and/or f amily
[2021-04-18] MEDS: Insulin Aspart 100 Units/ML 3 ML Pen SUBCUT SCH ×3 (00:34→13:03)
[2021-04-18] MEDS: Insulin Regular in 0.9 % NACL 100 ML IV SCH ×2 (01:02→13:08)
[2021-04-18] MEDS: methylPREDNISolone Sodium Succinate 125 MG/2 ML SDV IVPUSH SCH ×2 (01:15→08:20)
[2021-04-18] MEDS: Piperacillin/Tazobactam 4.5 GM in Sodium Chloride 0.9% 100 ML IV SCH ×2 (01:22→08:21)
[2021-04-18] MEDS: Albuterol 0.083% 2.5 MG/3 ML Neb Soln NEB SCH ×3 (01:48→09:18)
[2021-04-18 02:59] LABS: CARBON DIOXIDE,CO2 24.8 mmol/L (21.0-32.0); POTASSIUM,K 3.7 mmol/L (3.5-5.1)
[2021-04-18] MEDS: propofoL 100 ML IV SCH ×3 (04:40→13:01)
[2021-04-18] MEDS: Dextrose 5%-0.45% NaCl 1,000 ML IV SCH (05:49)
--- NOTE | 2021-04-18 11:03 | PCM.DCSUM1 ---
<Alejandro Chavez - Last Filed: 04/18/21 10:57> Discharge Summary - Hospital Course Free Text/Narrative:: The patient is a 81-year-old female, on day 2 of service, who has a previous COVID-19 diagnosis, who was admitted to the intensive care unit due to septic shock. She presented with hypotension, fever, and not feeling well. As a result, the patient was intubated yesterday and is on propofol of 40, fentanyl 100, her vent settings are AC 22, tidal volume of 350, a PEEP of 10, and FiO2 of 65, and is saturating at 97%. She is also on Levophed drip of 12, which was previously 18. Her current blood pressure is 118/48. She has a central and arterial line placed. She also has an insulin drip placed at 1.5 units/h with her last blood glucose being 134. She is also on steroids and antibiotics. This patient will be sent to [facility] in [place] due to the lack of personnel and medical capabilities here at [facility] in [place]. I spoke to Dr. Wellington, manager wellness in [place] who will be accepting this patient. The patient will be shipped via fixed wing/will be flown out due to being on pressors. - Discharge Data Discharge Date: 04/18/21 Discharge Disposition: Home, Self-Care 01 Condition: Fair - Referral to Home Health Primary Care Physician: PCP None - Patient Summary/Data Consults: Consultations 04/17/21 14:50 Consult to Case Management/Pot Room Supervisor [CONS] Routine - Discharge Plan *PRESCRIPTION DRUG MONITORING PROGRAM REVIEWED*: Not Applicable *COPY OF PRESCRIPTION DRUG MONITORING REPORT IN PATIENT LUCI: Not Applicable Home Medications: Home Meds Levothyroxine Sodium [Synthroid] 112 mcg PO DAILY 11/22/17 [History] Albuterol Sulfate [Albuterol Sulfate Hfa] 2 inh IH QID PRN 03/22/21 [History] Codeine/Promethazine HCl [Promethazine-Codeine Syrup] 5 ml PO Q4H PRN 03/22/21 [History] Diclofenac Sodium 50 mg PO BID PRN 03/22/21 [History] FLUoxetine [PROzac] 10 mg PO DAILY 03/22/21 [History] Furosemide 20 mg PO DAILY 03/22/21 [History] Glimepiride 2 mg PO BIDMEALS 03/22/21 [History] Insulin Degludec [Tresiba] 10 unit SUBCUT BEDTIME 03/22/21 [History] Montelukast Sodium 10 mg PO BEDTIME 03/22/21 [History] Potassium Chloride [Klor-Con 10] 10 meq PO Q2D 03/22/21 [History] Sacubitril/Valsartan [Entresto 97 mg-103 mg Tablet] 97 - 103 mg PO BID 03/22/21 [History] Sildenafil [Revatio] 10 mg PO BID 03/22/21 [History] Tiotropium BR/Olodaterol HCL [Stiolto Respimat] 2 inh IH DAILY 03/22/21 [History] dilTIAZem HCL [Diltiazem 24Hr ER (Cd)] 120 mg PO DAILY 03/22/21 [History] Albuterol Sulfate [Albuterol Sulfate Hfa] 2 inh IH Q4H PRN 04/17/21 [History] LORazepam [Ativan] 1 mg PO Q8H PRN 04/17/21 [History] Forms: ED Department Discharge Referrals: PCP,None [Primary Care Provider] - - Discharge Summary/Plan Comment DC Time >30 min.: Yes Total # of Minutes for Discharge Time: 35 minutes - Review of Systems General: Reports: Other (The patient is intubated and cannot answer questions) - Patient Data Vitals - Most Recent: Last Vital Signs Temp 96.8 F L 04/18/21 08:00 Pulse 101 H 04/17/21 19:00 Resp 22 H 04/18/21 10:00 BP 111/56 L 04/18/21 10:00 Pulse Ox 98 04/18/21 10:00 Weight - Most Recent: 160 lb 11.472 oz I&O - Last 24 hours: Intake & Output 04/17/21 04/18/21 04/18/21 22:59 06:59 14:59 Intake Total 1410 Output Total 420 Balance 990 Lab Results - Last 24 hrs: Laboratory Results - last 24 hr 04/17/21 04/17/21 04/17/21 Range/Units 17:10 18:57 21:27 WBC (4.0-11.0) K/uL RBC (4.30-5.90) M/uL Hgb (12.0-16.0) g/dL Hct (36.0-46.0) % MCV (80.0-98.0) fL MCH (27.0-32.0) pg MCHC (31.0-37.0) g/dL RDW Std Deviation (28.0-62.0) fl RDW Coeff of Andree (11.0-15.0) % Plt Count (150-400) K/uL MPV (7.40-12.00) fL Neut % (Auto) (48.0-80.0) % Lymph % (Auto) (16.0-40.0) % Sanborn % (Auto) (0.0-15.0) % Eos % (Auto) (0.0-7.0) % Baso % (Auto) (0.0-1.5) % Neut # (Auto) (1.4-5.7) K/uL Lymph # (Auto) (0.6-2.4) K/uL Sanborn # (Auto) (0.0-0.8) K/uL Eos # (Auto) (0.0-0.7) K/uL Baso # (Auto) (0.0-0.1) K/uL Nucleated RBC % /100WBC Nucleated RBCs # K/uL ABG pH (7.35-7.45) ABG pCO2 (35-45) mmHG ABG pO2 (80-105) mmHG ABG HCO3 (22-26) mEq/L ABG Total CO2 (23-27) mmol/L ABG Base Excess (-2.0-3.0) Sodium (136-145) mmol/L Potassium (3.5-5.1) mmol/L Chloride (98-107) mmol/L Carbon Dioxide (21.0-32.0) mmol/L BUN (7.0-18.0) mg/dL Creatinine (0.6-1.0) mg/dL Est Cr Clr Drug Dosing mL/min Estimated GFR (MDRD) ml/min Glucose (74-106) mg/dL POC Glucose 504 H* 480 H* (70-99) mg/dL Lactic Acid 4.9 H* (0.4-2.0) mmol/L Calcium (8.5-10.1) mg/dL Total Bilirubin (0.2-1.0) mg/dL AST (15-37) IU/L ALT (14-63) IU/L Alkaline Phosphatase (46-116) U/L C-Reactive Protein (0.00-0.90) mg/dL Total Protein (6.4-8.2) g/dL Albumin (3.4-5.0) g/dL Globulin (2.6-4.0) g/dL Albumin/Globulin Ratio (0.9-1.6) Urine Color Urine Appearance Urine pH (5.0-8.0) Ur Specific Barnum (1.001-1.035) Urine Protein (NEGATIVE) mg/dL Urine Glucose (UA) (NEGATIVE) mg/dL Urine Ketones (NEGATIVE) mg/dL Urine Occult Blood (NEGATIVE) Urine Nitrite (NEGATIVE) Urine Bilirubin (NEGATIVE) Urine Urobilinogen (<2.0) EU/dL Ur Leukocyte Esterase (NEGATIVE) U Hyaline Cast (Auto) (0-2/LPF) Urine RBC (0-2/HPF) Urine WBC (0-5/HPF) Ur Epithelial Cells (NONE-FEW) Urine Bacteria (NEGATIVE) Fine Granular Casts (NEGATIVE) Urine Mucus (NONE-MOD) 04/18/21 04/18/21 04/18/21 Range/Units 00:10 00:30 02:04 WBC (4.0-11.0) K/uL RBC (4.30-5.90) M/uL Hgb (12.0-16.0) g/dL Hct (36.0-46.0) % MCV (80.0-98.0) fL MCH (27.0-32.0) pg MCHC (31.0-37.0) g/dL RDW Std Deviation (28.0-62.0) fl RDW Coeff of Andree (11.0-15.0) % Plt Count (150-400) K/uL MPV (7.40-12.00) fL Neut % (Auto) (48.0-80.0) % Lymph % (Auto) (16.0-40.0) % Sanborn % (Auto) (0.0-15.0) % Eos % (Auto) (0.0-7.0) % Baso % (Auto) (0.0-1.5) % Neut # (Auto) (1.4-5.7) K/uL Lymph # (Auto) (0.6-2.4) K/uL Sanborn # (Auto) (0.0-0.8) K/uL Eos # (Auto) (0.0-0.7) K/uL Baso # (Auto) (0.0-0.1) K/uL Nucleated RBC % /100WBC Nucleated RBCs # K/uL ABG pH (7.35-7.45) ABG pCO2 (35-45) mmHG ABG pO2 (80-105) mmHG ABG HCO3 (22-26) mEq/L ABG Total CO2 (23-27) mmol/L ABG Base Excess (-2.0-3.0) Sodium (136-145) mmol/L Potassium (3.5-5.1) mmol/L Chloride (98-107) mmol/L Carbon Dioxide (21.0-32.0) mmol/L BUN (7.0-18.0) mg/dL Creatinine (0.6-1.0) mg/dL Est Cr Clr Drug Dosing mL/min Estimated GFR (MDRD) ml/min Glucose (74-106) mg/dL POC Glucose 484 H* 480 H* (70-99) mg/dL Lactic Acid (0.4-2.0) mmol/L Calcium (8.5-10.1) mg/dL Total Bilirubin (0.2-1.0) mg/dL AST (15-37) IU/L ALT (14-63) IU/L Alkaline Phosphatase (46-116) U/L C-Reactive Protein (0.00-0.90) mg/dL Total Protein (6.4-8.2) g/dL Albumin (3.4-5.0) g/dL Globulin (2.6-4.0) g/dL Albumin/Globulin Ratio (0.9-1.6) Urine Color YELLOW Urine Appearance SLT CLOUDY Urine pH 5.5 (5.0-8.0) Ur Specific Barnum 1.025 (1.001-1.035) Urine Protein NEGATIVE (NEGATIVE) mg/dL Urine Glucose (UA) >=1000 (NEGATIVE) mg/dL Urine Ketones NEGATIVE (NEGATIVE) mg/dL Urine Occult Blood TRACE-INTACT H (NEGATIVE) Urine Nitrite NEGATIVE (NEGATIVE) Urine Bilirubin NEGATIVE (NEGATIVE) Urine Urobilinogen 0.2 (<2.0) EU/dL Ur Leukocyte Esterase NEGATIVE (NEGATIVE) U Hyaline Cast (Auto) 0-2 (0-2/LPF) Urine RBC 0-2 (0-2/HPF) Urine WBC 0-2 (0-5/HPF) Ur Epithelial Cells MODERATE (NONE-FEW) Urine Bacteria FEW (NEGATIVE) Fine Granular Casts 0-2 (NEGATIVE) Urine Mucus LIGHT (NONE-MOD) 04/18/21 04/18/21 04/18/21 Range/Units 02:18 02:18 02:18 WBC 15.82 H (4.0-11.0) K/uL RBC 3.68 L (4.30-5.90) M/uL Hgb 10.5 L (12.0-16.0) g/dL Hct 32.5 L (36.0-46.0) % MCV 88.3 (80.0-98.0) fL MCH 28.5 (27.0-32.0) pg MCHC 32.3 (31.0-37.0) g/dL RDW Std Deviation 48.2 (28.0-62.0) fl RDW Coeff of Andree 15 (11.0-15.0) % Plt Count 361 (150-400) K/uL MPV 9.70 (7.40-12.00) fL Neut % (Auto) 89.6 H (48.0-80.0) % Lymph % (Auto) 7.0 L (16.0-40.0) % Sanborn % (Auto) 3.1 (0.0-15.0) % Eos % (Auto) 0.1 (0.0-7.0) % Baso % (Auto) 0.2 (0.0-1.5) % Neut # (Auto) 14.2 H (1.4-5.7) K/uL Lymph # (Auto) 1.1 (0.6-2.4) K/uL Sanborn # (Auto) 0.5 (0.0-0.8) K/uL Eos # (Auto) 0.0 (0.0-0.7) K/uL Baso # (Auto) 0.0 (0.0-0.1) K/uL Nucleated RBC % 0.0 /100WBC Nucleated RBCs # 0 K/uL ABG pH (7.35-7.45) ABG pCO2 (35-45) mmHG ABG pO2 (80-105) mmHG ABG HCO3 (22-26) mEq/L ABG Total CO2 (23-27) mmol/L ABG Base Excess (-2.0-3.0) Sodium 139 (136-145) mmol/L Potassium 3.7 (3.5-5.1) mmol/L Chloride 103 (98-107) mmol/L Carbon Dioxide 24.8 (21.0-32.0) mmol/L BUN 28 H (7.0-18.0) mg/dL Creatinine 1.7 H (0.6-1.0) mg/dL Est Cr Clr Drug Dosing 20.74 mL/min Estimated GFR (MDRD) 28.7 ml/min Glucose 521 H* (74-106) mg/dL POC Glucose (70-99) mg/dL Lactic Acid 3.4 H* (0.4-2.0) mmol/L Calcium 7.7 L (8.5-10.1) mg/dL Total Bilirubin 0.4 (0.2-1.0) mg/dL AST 22 (15-37) IU/L ALT 23 (14-63) IU/L Alkaline Phosphatase 104 (46-116) U/L C-Reactive Protein 29.30 H (0.00-0.90) mg/dL Total Protein 5.4 L (6.4-8.2) g/dL Albumin 1.7 L (3.4-5.0) g/dL Globulin 3.7 (2.6-4.0) g/dL Albumin/Globulin Ratio 0.5 L (0.9-1.6) Urine Color Urine Appearance Urine pH (5.0-8.0) Ur Specific Barnum (1.001-1.035) Urine Protein (NEGATIVE) mg/dL Urine Glucose (UA) (NEGATIVE) mg/dL Urine Ketones (NEGATIVE) mg/dL Urine Occult Blood (NEGATIVE) Urine Nitrite (NEGATIVE) Urine Bilirubin (NEGATIVE) Urine Urobilinogen (<2.0) EU/dL Ur Leukocyte Esterase (NEGATIVE) U Hyaline Cast (Auto) (0-2/LPF) Urine RBC (0-2/HPF) Urine WBC (0-5/HPF) Ur Epithelial Cells (NONE-FEW) Urine Bacteria (NEGATIVE) Fine Granular Casts (NEGATIVE) Urine Mucus (NONE-MOD) 04/18/21 04/18/21 04/18/21 Range/Units 03:03 04:00 04:35 WBC (4.0-11.0) K/uL RBC (4.30-5.90) M/uL Hgb (12.0-16.0) g/dL Hct (36.0-46.0) % MCV (80.0-98.0) fL MCH (27.0-32.0) pg MCHC (31.0-37.0) g/dL RDW Std Deviation (28.0-62.0) fl RDW Coeff of Andree (11.0-15.0) % Plt Count (150-400) K/uL MPV (7.40-12.00) fL Neut % (Auto) (48.0-80.0) % Lymph % (Auto) (16.0-40.0) % Sanborn % (Auto) (0.0-15.0) % Eos % (Auto) (0.0-7.0) % Baso % (Auto) (0.0-1.5) % Neut # (Auto) (1.4-5.7) K/uL Lymph # (Auto) (0.6-2.4) K/uL Sanborn # (Auto) (0.0-0.8) K/uL Eos # (Auto) (0.0-0.7) K/uL Baso # (Auto) (0.0-0.1) K/uL Nucleated RBC % /100WBC Nucleated RBCs # K/uL ABG pH 7.31 L (7.35-7.45) ABG pCO2 46 H (35-45) mmHG ABG pO2 201 H (80-105) mmHG ABG HCO3 23 (22-26) mEq/L ABG Total CO2 26 (23-27) mmol/L ABG Base Excess -3.4 L (-2.0-3.0) Sodium (136-145) mmol/L Potassium (3.5-5.1) mmol/L Chloride (98-107) mmol/L Carbon Dioxide (21.0-32.0) mmol/L BUN (7.0-18.0) mg/dL Creatinine (0.6-1.0) mg/dL Est Cr Clr Drug Dosing mL/min Estimated GFR (MDRD) ml/min Glucose (74-106) mg/dL POC Glucose 432 H* 371 H (70-99) mg/dL Lactic Acid (0.4-2.0) mmol/L Calcium (8.5-10.1) mg/dL Total Bilirubin (0.2-1.0) mg/dL AST (15-37) IU/L ALT (14-63) IU/L Alkaline Phosphatase (46-116) U/L C-Reactive Protein (0.00-0.90) mg/dL Total Protein (6.4-8.2) g/dL Albumin (3.4-5.0) g/dL Globulin (2.6-4.0) g/dL Albumin/Globulin Ratio (0.9-1.6) Urine Color Urine Appearance Urine pH (5.0-8.0) Ur Specific Barnum (1.001-1.035) Urine Protein (NEGATIVE) mg/dL Urine Glucose (UA) (NEGATIVE) mg/dL Urine Ketones (NEGATIVE) mg/dL Urine Occult Blood (NEGATIVE) Urine Nitrite (NEGATIVE) Urine Bilirubin (NEGATIVE) Urine Urobilinogen (<2.0) EU/dL Ur Leukocyte Esterase (NEGATIVE) U Hyaline Cast (Auto) (0-2/LPF) Urine RBC (0-2/HPF) Urine WBC (0-5/HPF) Ur Epithelial Cells (NONE-FEW) Urine Bacteria (NEGATIVE) Fine Granular Casts (NEGATIVE) Urine Mucus (NONE-MOD) 04/18/21 04/18/21 04/18/21 Range/Units 05:00 06:02 06:52 WBC (4.0-11.0) K/uL RBC (4.30-5.90) M/uL Hgb (12.0-16.0) g/dL Hct (36.0-46.0) % MCV (80.0-98.0) fL MCH (27.0-32.0) pg MCHC (31.0-37.0) g/dL RDW Std Deviation (28.0-62.0) fl RDW Coeff of Andree (11.0-15.0) % Plt Count (150-400) K/uL MPV (7.40-12.00) fL Neut % (Auto) (48.0-80.0) % Lymph % (Auto) (16.0-40.0) % Sanborn % (Auto) (0.0-15.0) % Eos % (Auto) (0.0-7.0) % Baso % (Auto) (0.0-1.5) % Neut # (Auto) (1.4-5.7) K/uL Lymph # (Auto) (0.6-2.4) K/uL Sanborn # (Auto) (0.0-0.8) K/uL Eos # (Auto) (0.0-0.7) K/uL Baso # (Auto) (0.0-0.1) K/uL Nucleated RBC % /100WBC Nucleated RBCs # K/uL ABG pH (7.35-7.45) ABG pCO2 (35-45) mmHG ABG pO2 (80-105) mmHG ABG HCO3 (22-26) mEq/L ABG Total CO2 (23-27) mmol/L ABG Base Excess (-2.0-3.0) Sodium (136-145) mmol/L Potassium (3.5-5.1) mmol/L Chloride (98-107) mmol/L Carbon Dioxide (21.0-32.0) mmol/L BUN (7.0-18.0) mg/dL Creatinine (0.6-1.0) mg/dL Est Cr Clr Drug Dosing mL/min Estimated GFR (MDRD) ml/min Glucose (74-106) mg/dL POC Glucose 314 H 245 H 227 H (70-99) mg/dL Lactic Acid (0.4-2.0) mmol/L Calcium (8.5-10.1) mg/dL Total Bilirubin (0.2-1.0) mg/dL AST (15-37) IU/L ALT (14-63) IU/L Alkaline Phosphatase (46-116) U/L C-Reactive Protein (0.00-0.90) mg/dL Total Protein (6.4-8.2) g/dL Albumin (3.4-5.0) g/dL Globulin (2.6-4.0) g/dL Albumin/Globulin Ratio (0.9-1.6) Urine Color Urine Appearance Urine pH (5.0-8.0) Ur Specific Barnum (1.001-1.035) Urine Protein (NEGATIVE) mg/dL Urine Glucose (UA) (NEGATIVE) mg/dL Urine Ketones (NEGATIVE) mg/dL Urine Occult Blood (NEGATIVE) Urine Nitrite (NEGATIVE) Urine Bilirubin (NEGATIVE) Urine Urobilinogen (<2.0) EU/dL Ur Leukocyte Esterase (NEGATIVE) U Hyaline Cast (Auto) (0-2/LPF) Urine RBC (0-2/HPF) Urine WBC (0-5/HPF) Ur Epithelial Cells (NONE-FEW) Urine Bacteria (NEGATIVE) Fine Granular Casts (NEGATIVE) Urine Mucus (NONE-MOD) 04/18/21 04/18/21 04/18/21 Range/Units 08:27 09:21 10:07 WBC (4.0-11.0) K/uL RBC (4.30-5.90) M/uL Hgb (12.0-16.0) g/dL Hct (36.0-46.0) % MCV (80.0-98.0) fL MCH (27.0-32.0) pg MCHC (31.0-37.0) g/dL RDW Std Deviation (28.0-62.0) fl RDW Coeff of Andree (11.0-15.0) % Plt Count (150-400) K/uL MPV (7.40-12.00) fL Neut % (Auto) (48.0-80.0) % Lymph % (Auto) (16.0-40.0) % Sanborn % (Auto) (0.0-15.0) % Eos % (Auto) (0.0-7.0) % Baso % (Auto) (0.0-1.5) % Neut # (Auto) (1.4-5.7) K/uL Lymph # (Auto) (0.6-2.4) K/uL Sanborn # (Auto) (0.0-0.8) K/uL Eos # (Auto) (0.0-0.7) K/uL Baso # (Auto) (0.0-0.1) K/uL Nucleated RBC % /100WBC Nucleated RBCs # K/uL ABG pH (7.35-7.45) ABG pCO2 (35-45) mmHG ABG pO2 (80-105) mmHG ABG HCO3 (22-26) mEq/L ABG Total CO2 (23-27) mmol/L ABG Base Excess (-2.0-3.0) Sodium (136-145) mmol/L Potassium (3.5-5.1) mmol/L Chloride (98-107) mmol/L Carbon Dioxide (21.0-32.0) mmol/L BUN (7.0-18.0) mg/dL Creatinine (0.6-1.0) mg/dL Est Cr Clr Drug Dosing mL/min Estimated GFR (MDRD) ml/min Glucose (74-106) mg/dL POC Glucose 154 H 146 H 134 H (70-99) mg/dL Lactic Acid (0.4-2.0) mmol/L Calcium (8.5-10.1) mg/dL Total Bilirubin (0.2-1.0) mg/dL AST (15-37) IU/L ALT (14-63) IU/L Alkaline Phosphatase (46-116) U/L C-Reactive Protein (0.00-0.90) mg/dL Total Protein (6.4-8.2) g/dL Albumin (3.4-5.0) g/dL Globulin (2.6-4.0) g/dL Albumin/Globulin Ratio (0.9-1.6) Urine Color Urine Appearance Urine pH (5.0-8.0) Ur Specific Barnum (1.001-1.035) Urine Protein (NEGATIVE) mg/dL Urine Glucose (UA) (NEGATIVE) mg/dL Urine Ketones (NEGATIVE) mg/dL Urine Occult Blood (NEGATIVE) Urine Nitrite (NEGATIVE) Urine Bilirubin (NEGATIVE) Urine Urobilinogen (<2.0) EU/dL Ur Leukocyte Esterase (NEGATIVE) U Hyaline Cast (Auto) (0-2/LPF) Urine RBC (0-2/HPF) Urine WBC (0-5/HPF) Ur Epithelial Cells (NONE-FEW) Urine Bacteria (NEGATIVE) Fine Granular Casts (NEGATIVE) Urine Mucus (NONE-MOD) MYRTLE Results - Last 24 hrs: Microbiology 04/17/21 04:57 Aerobic Blood Culture - Preliminary Blood - Venous - Lab Draw NO GROWTH AFTER 1 DAY Anaerobic Blood Culture - Final 04/17/21 04:30 Aerobic Blood Culture - Preliminary Blood - Venous NO GROWTH AFTER 1 DAY Anaerobic Blood Culture - Preliminary NO GROWTH AFTER 1 DAY Med Orders - Current: Current Medications Albuterol (Albuterol 0.083% 2.5 Mg/3 Ml Neb Soln) 2.5 mg NEB Q4HRRT [facility] Last Admin: 04/18/21 09:18 Dose: 2.5 mg Documented by: Dextrose/Water (50% Dextrose In Water 50 Ml Syringe) 50 ml IVPUSH ASDIRECTED PRN PRN Reason: Hypoglycemia Enoxaparin Sodium (Enoxaparin 30 Mg/0.3 Ml Syringe) 30 mg SUBCUT Q24H [facility] Last Admin: 04/17/21 17:39 Dose: 30 mg Documented by: Glucagon (Glucagon,Human Recombinant 1 Mg Vial) 1 mg IM ASDIRECTED PRN PRN Reason: Hypoglycemia Fentanyl Citrate 2,500 mcg/ (Premix) 250 mls @ 2.5 mls/hr IV TITRATE PRN; Protocol PRN Reason: Agitation Last Titration: 04/17/21 22:00 Dose: 100 mcg/hr, 10 mls/hr Documented by: Dextrose/Sodium Chloride (Dextrose 5%-1/2 Ns) 1,000 mls @ 75 mls/hr IV Q13H [facility] Last Admin: 04/18/21 05:49 Dose: Not Given Documented by: Piperacillin Sod/Tazobactam (Sod 4.5 gm/ Sodium Chloride) 100 mls @ 100 mls/hr IV Q8H [facility] Last Admin: 04/18/21 08:21 Dose: 100 mls/hr Documented by: Vancomycin HCl 1 gm/ Sodium (Chloride) 250 mls @ 250 mls/hr IV Q24H [facility] Last Admin: 04/17/21 20:30 Dose: 250 mls/hr Documented by: Propofol (Diprivan 100 Ml) 100 mls @ 2.218 mls/hr IV TITRATE [facility]; Protocol Last Admin: 04/18/21 10:30 Dose: 40 mcg/kg/min, 17.745 mls/hr Documented by: Norepinephrine Bitartrate (Norepinephr-0.9% Nacl 4 Mg/250) 4 mg in 250 mls @ 7.5 mls/hr IV TITRATE [facility]; Protocol Last Admin: 04/18/21 09:15 Dose: 14 mcg/min, 52.5 mls/hr Documented by: Insulin Regular in 0.9 % NACL (Myxredlin In Ns 100 Unit/100 Ml) 100 mls @ 12 m ls/hr IV TITRATE TEO; Protocol Last Titration: 04/18/21 09:30 Dose: 1.5 mls/hr, 1.5 mls/hr Documented by: Insulin Aspart (Insulin Aspart 100 Units/Ml 3 Ml Pen) 0 unit SUBCUT Q6H TEO; Protocol Last Admin: 04/18/21 05:50 Dose: Not Given Documented by: Methylprednisolone Sodium Succinate (Methylprednisolone Sodium Succinate 125 Mg/2 Ml Sdv) 60 mg IVPUSH Q8H TEO Last Admin: 04/18/21 08:20 Dose: 60 mg Documented by: Morphine Sulfate (Morphine 2 Mg/Ml Syringe) 2 mg IVPUSH Q2H PRN PRN Reason: Pain (severe 7-10) Stop: 04/18/21 14:56 Pantoprazole Sodium (Pantoprazole 40 Mg/10 Ml Syringe) 40 mg IVPUSH Q24H TEO Last Admin: 04/17/21 21:16 Dose: 40 mg Documented by: Vancomycin HCl (Pharmacy To Dose - Vancomycin) 1 dose .XX ASDIRECTED TEO Discontinued Medications Albuterol (Albuterol 0.083% 2.5 Mg/3 Ml Neb Soln) 2.5 mg NEB ONETIME ONE Stop: 04/17/21 11:02 Last Admin: 04/17/21 12:17 Dose: 2.5 mg Documented by: Albuterol (Albuterol 0.083% 2.5 Mg/3 Ml Neb Soln) 2.5 mg NEB Q2H PRN PRN Reason: Shortness Of Breath/wheezing Albuterol/Ipratropium (Albuterol/Ipratropium 3.0-0.5 Mg/3 Ml Neb Soln) 3 ml NEB ONETIME ONE Stop: 04/17/21 04:43 Last Admin: 04/17/21 05:09 Dose: 3 ml Documented by: Albuterol/Ipratropium (Albuterol/Ipratropium 3.0-0.5 Mg/3 Ml Neb Soln) Confirm Administered Dose 3 ml .ROUTE .STK-MED ONE Stop: 04/17/21 11:02 Last Admin: 04/17/21 12:17 Dose: Not Given Documented by: Albuterol/Ipratropium (Albuterol/Ipratropium 3.0-0.5 Mg/3 Ml Neb Soln) 3 ml NEB ONETIME ONE Stop: 04/17/21 11:10 Last Admin: 04/17/21 11:10 Dose: 3 ml Documented by: Diltiazem HCl (Diltiazem 120 Mg Cap.Cd) 120 mg PO ONETIME ONE Stop: 04/17/21 08:21 Last Admin: 04/17/21 08:37 Dose: Not Given Documented by: Furosemide (Furosemide 20 Mg/2 Ml Vial) 20 mg IVPUSH ONETIME ONE Stop: 04/17/21 22:16 Last Admin: 04/17/21 23:57 Dose: 20 mg Documented by: Cefepime HCl 2 gm/ Premix 50 mls @ 100 mls/hr IV ONETIME ONE Stop: 04/17/21 05:23 Last Admin: 04/17/21 05:09 Dose: 100 mls/hr Documented by: Sodium Chloride (Normal Saline) 1,000 mls @ 999 mls/hr IV .Bolus ONE Stop: 04/17/21 06:47 Last Admin: 04/17/21 05:53 Dose: 999 mls/hr Documented by: Levothyroxine Sodium 66 mcg/ (Sodium Chloride) 3.3 mls @ 198 mls/hr IV ONETIME ONE Stop: 04/17/21 09:16 Last Admin: 04/17/21 09:10 Dose: 198 mls/hr Documented by: Magnesium Sulfate (Magnesium Sulfate In Water 2 Gm/50 Ml) 25 mls @ 25 mls/hr IV ONETIME ONE Stop: 04/17/21 12:44 Last Admin: 04/17/21 12:04 Dose: 25 mls/hr Documented by: Fentanyl Citrate (Fentanyl 2500 Mcg In Ns 250 Ml (10 Mcg/Ml)) Confirm Administered Dose 250 mls @ as directed .ROUTE .STK-MED ONE Stop: 04/17/21 12:04 Last Admin: 04/17/21 12:17 Dose: Not Given Documented by: Levofloxacin/Dextrose 750 mg/ (Premix) 150 mls @ 100 mls/hr IV Q[facility]H [facility] Last Admin: 04/17/21 17:40 Dose: 100 mls/hr Documented by: Propofol (Diprivan 100 Ml) Confirm Administered Dose 100 mls @ as directed .ROUTE .STK-MED ONE Stop: 04/17/21 16:07 Last Admin: 04/17/21 19:30 Dose: Not Given Documented by: Insulin Aspart (Insulin Aspart 100 Units/Ml 3 Ml Pen) 10 unit SUBCUT ONETIME ONE Stop: 04/17/21 18:01 Last Admin: 04/17/21 17:47 Dose: 10 units Documented by: Insulin Glargine (Insulin Glargine,Human Rec. Analog 100 Units/Ml 3 Ml Pen) 15 units SUBCUT ONETIME ONE Stop: 04/17/21 18:01 Last Admin: 04/17/21 17:44 Dose: 15 units Documented by: Insulin Human Regular (Insulin Regular, Human 100 Units/Ml 10 Ml Vial) 5 unit IVPUSH ONETIME ONE; Protocol Stop: 04/17/21 06:20 Last Admin: 04/17/21 06:26 Dose: 5 units Documented by: Iopamidol (Iopamidol 755 Mg/Ml 500 Ml Multipack Bottle) 50 ml IVPUSH ONETIME STA Stop: 04/17/21 06:32 Last Admin: 04/17/21 06:31 Dose: 50 ml Documented by: Levothyroxine Sodium (Levothyroxine 112 Mcg Tab) 112 mcg PO ONETIME ONE Stop: 04/17/21 08:22 Last Admin: 04/17/21 08:37 Dose: Not Given Documented by: Lorazepam (Lorazepam 2 Mg/Ml Sdv) 0.5 mg IVPUSH ONETIME ONE Stop: 04/17/21 04:20 Last Admin: 04/17/21 04:38 Dose: 0.5 mg Documented by: Lorazepam (Lorazepam 2 Mg/Ml Sdv) 0.5 mg IVPUSH ONETIME ONE Stop: 04/17/21 05:47 Last Admin: 04/17/21 05:52 Dose: 0.5 mg Documented by: Methylprednisolone Sodium Succinate (Methylprednisolone Sodium Succinate 125 Mg/2 Ml Sdv) 125 mg IVPUSH ONETIME ONE Stop: 04/17/21 04:43 Last Admin: 04/17/21 05:09 Dose: 125 mg Documented by: Midazolam HCl (Midazolam 1 Mg/Ml 2 Ml Sdv) 1 mg IVPUSH ONETIME ONE Stop: 04/17/21 11:01 Last Admin: 04/17/21 11:09 Dose: 1 mg Documented by: Midazolam HCl (Midazolam 1 Mg/Ml 2 Ml Sdv) Confirm Administered Dose 2 mg .ROUTE .STK-MED ONE Stop: 04/17/21 11:02 Last Admin: 04/17/21 12:17 Dose: Not Given Documented by: - Exam General: Reports: Sedated HEENT: Denies: Mucous Membr. Moist/[place] Neck: Reports: Trachea Midline Lungs: Reports: Clear to Auscultation Cardiovascular: Reports: Regular Rate, Regular Rhythm GI/Abdominal Exam: Normal Bowel Sounds, Soft Discharge Operative/Procedures - Procedures Performed Intubation Indication: Respiratory Failure Arterial Line Indication: hemodynamic monitoring <Emmanuel Lyles - Last Filed: 04/18/21 13:13> Discharge Summary - Hospital Course Free Text/Narrative:: I agree with the above assessment and plan. Physical exam: Pt remains intubated and sedated CVS: S1S2 RRR lungs: clear with no rales pa: soft, non tender. Bowel sounds present Ext: no clubbing, cyanosis or edema. - Referral to Home Health Primary Care Physician: PCP None - Patient Summary/Data Consults: Consultations 04/17/21 14:50 Consult to Case Management/Pot Room Supervisor [CONS] Routine - Patient Data Vitals - Most Recent: Last Vital Signs Temp 96.8 F L 04/18/21 08:00 Pulse 101 H 04/17/21 19:00 Resp 22 H 04/18/21 10:00 BP 108/53 L 04/18/21 11:00 Pulse Ox 98 04/18/21 10:00 I&O - Last 24 hours: Intake & Output 04/17/21 04/18/21 04/18/21 22:59 06:59 14:59 Intake Total 1410 Output Total 420 150 Balance 990 -150 Lab Results - Last 24 hrs: Laboratory Results - last 24 hr 04/17/21 04/17/21 04/17/21 Range/Units 17:10 18:57 21:27 WBC (4.0-11.0) K/uL RBC (4.30-5.90) M/uL Hgb (12.0-16.0) g/dL Hct (36.0-46.0) % MCV (80.0-98.0) fL MCH (27.0-32.0) pg MCHC (31.0-37.0) g/dL RDW Std Deviation (28.0-62.0) fl RDW Coeff of Andree (11.0-15.0) % Plt Count (150-400) K/uL MPV (7.40-12.00) fL Neut % (Auto) (48.0-80.0) % Lymph % (Auto) (16.0-40.0) % [place] % (Auto) (0.0-15.0) % Eos % (Auto) (0.0-7.0) % Baso % (Auto) (0.0-1.5) % Neut # (Auto) (1.4-5.7) K/uL Lymph # (Auto) (0.6-2.4) K/uL [place] # (Auto) (0.0-0.8) K/uL Eos # (Auto) (0.0-0.7) K/uL Baso # (Auto) (0.0-0.1) K/uL Nucleated RBC % /100WBC Nucleated RBCs # K/uL ABG pH (7.35-7.45) ABG pCO2 (35-45) mmHG ABG pO2 (80-105) mmHG ABG HCO3 (22-26) mEq/L ABG Total CO2 (23-27) mmol/L ABG Base Excess (-2.0-3.0) Sodium (136-145) mmol/L Potassium (3.5-5.1) mmol/L Chloride (98-107) mmol/L Carbon Dioxide (21.0-32.0) mmol/L BUN (7.0-18.0) mg/dL Creatinine (0.6-1.0) mg/dL Est Cr Clr Drug Dosing mL/min Estimated GFR (MDRD) ml/min Glucose (74-106) mg/dL POC Glucose 504 H* 480 H* (70-99) mg/dL Lactic Acid 4.9 H* (0.4-2.0) mmol/L Calcium (8.5-10.1) mg/dL Total Bilirubin (0.2-1.0) mg/dL AST (15-37) IU/L ALT (14-63) IU/L Alkaline Phosphatase (46-116) U/L C-Reactive Protein (0.00-0.90) mg/dL Total Protein (6.4-8.2) g/dL Albumin (3.4-5.0) g/dL Globulin (2.6-4.0) g/dL Albumin/Globulin Ratio (0.9-1.6) Urine Color Urine Appearance Urine pH (5.0-8.0) Ur Specific Barnum (1.001-1.035) Urine Protein (NEGATIVE) mg/dL Urine Glucose (UA) (NEGATIVE) mg/dL Urine Ketones (NEGATIVE) mg/dL Urine Occult Blood (NEGATIVE) Urine Nitrite (NEGATIVE) Urine Bilirubin (NEGATIVE) Urine Urobilinogen (<2.0) EU/dL Ur Leukocyte Esterase (NEGATIVE) U Hyaline Cast (Auto) (0-2/LPF) Urine RBC (0-2/HPF) Urine WBC (0-5/HPF) Ur Epithelial Cells (NONE-FEW) Urine Bacteria (NEGATIVE) Fine Granular Casts (NEGATIVE) Urine Mucus (NONE-MOD) 04/18/21 04/18/21 04/18/21 Range/Units 00:10 00:30 02:04 WBC (4.0-11.0) K/uL RBC (4.30-5.90) M/uL Hgb (12.0-16.0) g/dL Hct (36.0-46.0) % MCV (80.0-98.0) fL MCH (27.0-32.0) pg MCHC (31.0-37.0) g/dL RDW Std Deviation (28.0-62.0) fl RDW Coeff of Andree (11.0-15.0) % Plt Count (150-400) K/uL MPV (7.40-12.00) fL Neut % (Auto) (48.0-80.0) % Lymph % (Auto) (16.0-40.0) % [place] % (Auto) (0.0-15.0) % Eos % (Auto) (0.0-7.0) % Baso % (Auto) (0.0-1.5) % Neut # (Auto) (1.4-5.7) K/uL Lymph # (Auto) (0.6-2.4) K/uL [place] # (Auto) (0.0-0.8) K/uL Eos # (Auto) (0.0-0.7) K/uL Baso # (Auto) (0.0-0.1) K/uL Nucleated RBC % /100WBC Nucleated RBCs # K/uL ABG pH (7.35-7.45) ABG pCO2 (35-45) mmHG ABG pO2 (80-105) mmHG ABG HCO3 (22-26) mEq/L ABG Total CO2 (23-27) mmol/L ABG Base Excess (-2.0-3.0) Sodium (136-145) mmol/L Potassium (3.5-5.1) mmol/L Chloride (98-107) mmol/L Carbon Dioxide (21.0-32.0) mmol/L BUN (7.0-18.0) mg/dL Creatinine (0.6-1.0) mg/dL Est Cr Clr Drug Dosing mL/min Estimated GFR (MDRD) ml/min Glucose (74-106) mg/dL POC Glucose 484 H* 480 H* (70-99) mg/dL Lactic Acid (0.4-2.0) mmol/L Calcium (8.5-10.1) mg/dL Total Bilirubin (0.2-1.0) mg/dL AST (15-37) IU/L ALT (14-63) IU/L Alkaline Phosphatase (46-116) U/L C-Reactive Protein (0.00-0.90) mg/dL Total Protein (6.4-8.2) g/dL Albumin (3.4-5.0) g/dL Globulin (2.6-4.0) g/dL Albumin/Globulin Ratio (0.9-1.6) Urine Color YELLOW Urine Appearance SLT CLOUDY Urine pH 5.5 (5.0-8.0) Ur Specific Barnum 1.025 (1.001-1.035) Urine Protein NEGATIVE (NEGATIVE) mg/dL Urine Glucose (UA) >=1000 (NEGATIVE) mg/dL Urine Ketones NEGATIVE (NEGATIVE) mg/dL Urine Occult Blood TRACE-INTACT H (NEGATIVE) Urine Nitrite NEGATIVE (NEGATIVE) Urine Bilirubin NEGATIVE (NEGATIVE) Urine Urobilinogen 0.2 (<2.0) EU/dL Ur Leukocyte Esterase NEGATIVE (NEGATIVE) U Hyaline Cast (Auto) 0-2 (0-2/LPF) Urine RBC 0-2 (0-2/HPF) Urine WBC 0-2 (0-5/HPF) Ur Epithelial Cells MODERATE (NONE-FEW) Urine Bacteria FEW (NEGATIVE) Fine Granular Casts 0-2 (NEGATIVE) Urine Mucus LIGHT (NONE-MOD) 04/18/21 04/18/21 04/18/21 Range/Units 02:18 02:18 02:18 WBC 15.82 H (4.0-11.0) K/uL RBC 3.68 L (4.30-5.90) M/uL Hgb 10.5 L (12.0-16.0) g/dL Hct 32.5 L (36.0-46.0) % MCV 88.3 (80.0-98.0) fL MCH 28.5 (27.0-32.0) pg MCHC 32.3 (31.0-37.0) g/dL RDW Std Deviation 48.2 (28.0-62.0) fl RDW Coeff of Andree 15 (11.0-15.0) % Plt Count 361 (150-400) K/uL MPV 9.70 (7.40-12.00) fL Neut % (Auto) 89.6 H (48.0-80.0) % Lymph % (Auto) 7.0 L (16.0-40.0) % [place] % (Auto) 3.1 (0.0-15.0) % Eos % (Auto) 0.1 (0.0-7.0) % Baso % (Auto) 0.2 (0.0-1.5) % Neut # (Auto) 14.2 H (1.4-5.7) K/uL Lymph # (Auto) 1.1 (0.6-2.4) K/uL [place] # (Auto) 0.5 (0.0-0.8) K/uL Eos # (Auto) 0.0 (0.0-0.7) K/uL Baso # (Auto) 0.0 (0.0-0.1) K/uL Nucleated RBC % 0.0 /100WBC Nucleated RBCs # 0 K/uL ABG pH (7.35-7.45) ABG pCO2 (35-45) mmHG ABG pO2 (80-105) mmHG ABG HCO3 (22-26) mEq/L ABG Total CO2 (23-27) mmol/L ABG Base Excess (-2.0-3.0) Sodium 139 (136-145) mmol/L Potassium 3.7 (3.5-5.1) mmol/L Chloride 103 (98-107) mmol/L Carbon Dioxide 24.8 (21.0-32.0) mmol/L BUN 28 H (7.0-18.0) mg/dL Creatinine 1.7 H (0.6-1.0) mg/dL Est Cr Clr Drug Dosing 20.74 mL/min Estimated GFR (MDRD) 28.7 ml/min Glucose 521 H* (74-106) mg/dL POC Glucose (70-99) mg/dL Lactic Acid 3.4 H* (0.4-2.0) mmol/L Calcium 7.7 L (8.5-10.1) mg/dL Total Bilirubin 0.4 (0.2-1.0) mg/dL AST 22 (15-37) IU/L ALT 23 (14-63) IU/L Alkaline Phosphatase 104 (46-116) U/L C-Reactive Protein 29.30 H (0.00-0.90) mg/dL Total Protein 5.4 L (6.4-8.2) g/dL Albumin 1.7 L (3.4-5.0) g/dL Globulin 3.7 (2.6-4.0) g/dL Albumin/Globulin Ratio 0.5 L (0.9-1.6) Urine Color Urine Appearance Urine pH (5.0-8.0) Ur Specific Barnum (1.001-1.035) Urine Protein (NEGATIVE) mg/dL Urine Glucose (UA) (NEGATIVE) mg/dL Urine Ketones (NEGATIVE) mg/dL Urine Occult Blood (NEGATIVE) Urine Nitrite (NEGATIVE) Urine Bilirubin (NEGATIVE) Urine Urobilinogen (<2.0) EU/dL Ur Leukocyte Esterase (NEGATIVE) U Hyaline Cast (Auto) (0-2/LPF) Urine RBC (0-2/HPF) Urine WBC (0-5/HPF) Ur Epithelial Cells (NONE-FEW) Urine Bacteria (NEGATIVE) Fine Granular Casts (NEGATIVE) Urine Mucus (NONE-MOD) 04/18/21 04/18/21 04/18/21 Range/Units 03:03 04:00 04:35 WBC (4.0-11.0) K/uL RBC (4.30-5.90) M/uL Hgb (12.0-16.0) g/dL Hct (36.0-46.0) % MCV (80.0-98.0) fL MCH (27.0-32.0) pg MCHC (31.0-37.0) g/dL RDW Std Deviation (28.0-62.0) fl RDW Coeff of Andree (11.0-15.0) % Plt Count (150-400) K/uL MPV (7.40-12.00) fL Neut % (Auto) (48.0-80.0) % Lymph % (Auto) (16.0-40.0) % [place] % (Auto) (0.0-15.0) % Eos % (Auto) (0.0-7.0) % Baso % (Auto) (0.0-1.5) % Neut # (Auto) (1.4-5.7) K/uL Lymph # (Auto) (0.6-2.4) K/uL [place] # (Auto) (0.0-0.8) K/uL Eos # (Auto) (0.0-0.7) K/uL Baso # (Auto) (0.0-0.1) K/uL Nucleated RBC % /100WBC Nucleated RBCs # K/uL ABG pH 7.31 L (7.35-7.45) ABG pCO2 46 H (35-45) mmHG ABG pO2 201 H (80-105) mmHG ABG HCO3 23 (22-26) mEq/L ABG Total CO2 26 (23-27) mmol/L ABG Base Excess -3.4 L (-2.0-3.0) Sodium (136-145) mmol/L Potassium (3.5-5.1) mmol/L Chloride (98-107) mmol/L Carbon Dioxide (21.0-32.0) mmol/L BUN (7.0-18.0) mg/dL Creatinine (0.6-1.0) mg/dL Est Cr Clr Drug Dosing mL/min Estimated GFR (MDRD) ml/min Glucose (74-106) mg/dL POC Glucose 432 H* 371 H (70-99) mg/dL Lactic Acid (0.4-2.0) mmol/L Calcium (8.5-10.1) mg/dL Total Bilirubin (0.2-1.0) mg/dL AST (15-37) IU/L ALT (14-63) IU/L Alkaline Phosphatase (46-116) U/L C-Reactive Protein (0.00-0.90) mg/dL Total Protein (6.4-8.2) g/dL Albumin (3.4-5.0) g/dL Globulin (2.6-4.0) g/dL Albumin/Globulin Ratio (0.9-1.6) Urine Color Urine Appearance Urine pH (5.0-8.0) Ur Specific Barnum (1.001-1.035) Urine Protein (NEGATIVE) mg/dL Urine Glucose (UA) (NEGATIVE) mg/dL Urine Ketones (NEGATIVE) mg/dL Urine Occult Blood (NEGATIVE) Urine Nitrite (NEGATIVE) Urine Bilirubin (NEGATIVE) Urine Urobilinogen (<2.0) EU/dL Ur Leukocyte Esterase (NEGATIVE) U Hyaline Cast (Auto) (0-2/LPF) Urine RBC (0-2/HPF) Urine WBC (0-5/HPF) Ur Epithelial Cells (NONE-FEW) Urine Bacteria (NEGATIVE) Fine Granular Casts (NEGATIVE) Urine Mucus (NONE-MOD) 04/18/21 04/18/21 04/18/21 Range/Units 05:00 06:02 06:52 WBC (4.0-11.0) K/uL RBC (4.30-5.90) M/uL Hgb (12.0-16.0) g/dL Hct (36.0-46.0) % MCV (80.0-98.0) fL MCH (27.0-32.0) pg MCHC (31.0-37.0) g/dL RDW Std Deviation (28.0-62.0) fl RDW Coeff of Andree (11.0-15.0) % Plt Count (150-400) K/uL MPV (7.40-12.00) fL Neut % (Auto) (48.0-80.0) % Lymph % (Auto) (16.0-40.0) % [place] % (Auto) (0.0-15.0) % Eos % (Auto) (0.0-7.0) % Baso % (Auto) (0.0-1.5) % Neut # (Auto) (1.4-5.7) K/uL Lymph # (Auto) (0.6-2.4) K/uL [place] # (Auto) (0.0-0.8) K/uL Eos # (Auto) (0.0-0.7) K/uL Baso # (Auto) (0.0-0.1) K/uL Nucleated RBC % /100WBC Nucleated RBCs # K/uL ABG pH (7.35-7.45) ABG pCO2 (35-45) mmHG ABG pO2 (80-105) mmHG ABG HCO3 (22-26) mEq/L ABG Total CO2 (23-27) mmol/L ABG Base Excess (-2.0-3.0) Sodium (136-145) mmol/L Potassium (3.5-5.1) mmol/L Chloride (98-107) mmol/L Carbon Dioxide (21.0-32.0) mmol/L BUN (7.0-18.0) mg/dL Creatinine (0.6-1.0) mg/dL Est Cr Clr Drug Dosing mL/min Estimated GFR (MDRD) ml/min Glucose (74-106) mg/dL POC Glucose 314 H 245 H 227 H (70-99) mg/dL Lactic Acid (0.4-2.0) mmol/L Calcium (8.5-10.1) mg/dL Total Bilirubin (0.2-1.0) mg/dL AST (15-37) IU/L ALT (14-63) IU/L Alkaline Phosphatase (46-116) U/L C-Reactive Protein (0.00-0.90) mg/dL Total Protein (6.4-8.2) g/dL Albumin (3.4-5.0) g/dL Globulin (2.6-4.0) g/dL Albumin/Globulin Ratio (0.9-1.6) Urine Color Urine Appearance Urine pH (5.0-8.0) Ur Specific Barnum (1.001-1.035) Urine Protein (NEGATIVE) mg/dL Urine Glucose (UA) (NEGATIVE) mg/dL Urine Ketones (NEGATIVE) mg/dL Urine Occult Blood (NEGATIVE) Urine Nitrite (NEGATIVE) Urine Bilirubin (NEGATIVE) Urine Urobilinogen (<2.0) EU/dL Ur Leukocyte Esterase (NEGATIVE) U Hyaline Cast (Auto) (0-2/LPF) Urine RBC (0-2/HPF) Urine WBC (0-5/HPF) Ur Epithelial Cells (NONE-FEW) Urine Bacteria (NEGATIVE) Fine Granular Casts (NEGATIVE) Urine Mucus (NONE-MOD) 04/18/21 04/18/21 04/18/21 Range/Units 08:27 09:21 10:07 WBC (4.0-11.0) K/uL RBC (4.30-5.90) M/uL Hgb (12.0-16.0) g/dL Hct (36.0-46.0) % MCV (80.0-98.0) fL MCH (27.0-32.0) pg MCHC (31.0-37.0) g/dL RDW Std Deviation (28.0-62.0) fl RDW Coeff of Andree (11.0-15.0) % Plt Count (150-400) K/uL MPV (7.40-12.00) fL Neut % (Auto) (48.0-80.0) % Lymph % (Auto) (16.0-40.0) % [place] % (Auto) (0.0-15.0) % Eos % (Auto) (0.0-7.0) % Baso % (Auto) (0.0-1.5) % Neut # (Auto) (1.4-5.7) K/uL Lymph # (Auto) (0.6-2.4) K/uL [place] # (Auto) (0.0-0.8) K/uL Eos # (Auto) (0.0-0.7) K/uL Baso # (Auto) (0.0-0.1) K/uL Nucleated RBC % /100WBC Nucleated RBCs # K/uL ABG pH (7.35-7.45) ABG pCO2 (35-45) mmHG ABG pO2 (80-105) mmHG ABG HCO3 (22-26) mEq/L ABG Total CO2 (23-27) mmol/L ABG Base Excess (-2.0-3.0) Sodium (136-145) mmol/L Potassium (3.5-5.1) mmol/L Chloride (98-107) mmol/L Carbon Dioxide (21.0-32.0) mmol/L BUN (7.0-18.0) mg/dL Creatinine (0.6-1.0) mg/dL Est Cr Clr Drug Dosing mL/min Estimated GFR (MDRD) ml/min Glucose (74-106) mg/dL POC Glucose 154 H 146 H 134 H (70-99) mg/dL Lactic Acid (0.4-2.0) mmol/L Calcium (8.5-10.1) mg/dL Total Bilirubin (0.2-1.0) mg/dL AST (15-37) IU/L ALT (14-63) IU/L Alkaline Phosphatase (46-116) U/L C-Reactive Protein (0.00-0.90) mg/dL Total Protein (6.4-8.2) g/dL Albumin (3.4-5.0) g/dL Globulin (2.6-4.0) g/dL Albumin/Globulin Ratio (0.9-1.6) Urine Color Urine Appearance Urine pH (5.0-8.0) Ur Specific Barnum (1.001-1.035) Urine Protein (NEGATIVE) mg/dL Urine Glucose (UA) (NEGATIVE) mg/dL Urine Ketones (NEGATIVE) mg/dL Urine Occult Blood (NEGATIVE) Urine Nitrite (NEGATIVE) Urine Bilirubin (NEGATIVE) Urine Urobilinogen (<2.0) EU/dL Ur Leukocyte Esterase (NEGATIVE) U Hyaline Cast (Auto) (0-2/LPF) Urine RBC (0-2/HPF) Urine WBC (0-5/HPF) Ur Epithelial Cells (NONE-FEW) Urine Bacteria (NEGATIVE) Fine Granular Casts (NEGATIVE) Urine Mucus (NONE-MOD) 04/18/ Range/Units 10:58 WBC (4.0-11.0) K/uL RBC (4.30-5.90) M/uL Hgb (12.0-16.0) g/dL Hct (36.0-46.0) % MCV (80.0-98.0) fL MCH (27.0-32.0) pg MCHC (31.0-37.0) g/dL RDW Std Deviation (28.0-62.0) fl RDW Coeff of Andree (11.0-15.0) % Plt Count (150-400) K/uL MPV (7.40-12.00) fL Neut % (Auto) (48.0-80.0) % Lymph % (Auto) (16.0-40.0) % [place] % (Auto) (0.0-15.0) % Eos % (Auto) (0.0-7.0) % Baso % (Auto) (0.0-1.5) % Neut # (Auto) (1.4-5.7) K/uL Lymph # (Auto) (0.6-2.4) K/uL [place] # (Auto) (0.0-0.8) K/uL Eos # (Auto) (0.0-0.7) K/uL Baso # (Auto) (0.0-0.1) K/uL Nucleated RBC % /100WBC Nucleated RBCs # K/uL ABG pH (7.35-7.45) ABG pCO2 (35-45) mmHG ABG pO2 (80-105) mmHG ABG HCO3 (22-26) mEq/L ABG Total CO2 (23-27) mmol/L ABG Base Excess (-2.0-3.0) Sodium (136-145) mmol/L Potassium (3.5-5.1) mmol/L Chloride (98-107) mmol/L Carbon Dioxide (21.0-32.0) mmol/L BUN (7.0-18.0) mg/dL Creatinine (0.6-1.0) mg/dL Est Cr Clr Drug Dosing mL/min Estimated GFR (MDRD) ml/min Glucose (74-106) mg/dL POC Glucose 134 H (70-99) mg/dL Lactic Acid (0.4-2.0) mmol/L Calcium (8.5-10.1) mg/dL Total Bilirubin (0.2-1.0) mg/dL AST (15-37) IU/L ALT (14-63) IU/L Alkaline Phosphatase (46-116) U/L C-Reactive Protein (0.00-0.90) mg/dL Total Protein (6.4-8.2) g/dL Albumin (3.4-5.0) g/dL Globulin (2.6-4.0) g/dL Albumin/Globulin Ratio (0.9-1.6) Urine Color Urine Appearance Urine pH (5.0-8.0) Ur Specific Barnum (1.001-1.035) Urine Protein (NEGATIVE) mg/dL Urine Glucose (UA) (NEGATIVE) mg/dL Urine Ketones (NEGATIVE) mg/dL Urine Occult Blood (NEGATIVE) Urine Nitrite (NEGATIVE) Urine Bilirubin (NEGATIVE) Urine Urobilinogen (<2.0) EU/dL Ur Leukocyte Esterase (NEGATIVE) U Hyaline Cast (Auto) (0-2/LPF) Urine RBC (0-2/HPF) Urine WBC (0-5/HPF) Ur Epithelial Cells (NONE-FEW) Urine Bacteria (NEGATIVE) Fine Granular Casts (NEGATIVE) Urine Mucus (NONE-MOD) MYRTLE Results - Last 24 hrs: Microbiology 04/17/21 04:57 Aerobic Blood Culture - Preliminary Blood - Venous - Lab Draw NO GROWTH AFTER 1 DAY Anaerobic Blood Culture - Final 04/17/21 04:30 Aerobic Blood Culture - Preliminary Blood - Venous NO GROWTH AFTER 1 DAY Anaerobic Blood Culture - Preliminary NO GROWTH AFTER 1 DAY Med Orders - Current: Current Medications Albuterol (Albuterol 0.083% 2.5 Mg/3 Ml Neb Soln) 2.5 mg NEB Q4HRRT [facility] Last Admin: 04/18/21 09:18 Dose: 2.5 mg Documented by: Dextrose/Water (50% Dextrose In Water 50 Ml Syringe) 50 ml IVPUSH ASDIRECTED PRN PRN Reason: Hypoglycemia Enoxaparin Sodium (Enoxaparin 30 Mg/0.3 Ml Syringe) 30 mg SUBCUT Q24H [facility] Last Admin: 04/17/21 17:39 Dose: 30 mg Documented by: Glucagon (Glucagon,Human Recombinant 1 Mg Vial) 1 mg IM ASDIRECTED PRN PRN Reason: Hypoglycemia Fentanyl Citrate 2,500 mcg/ (Premix) 250 mls @ 2.5 mls/hr IV TITRATE PRN; Pro tocol PRN Reason: Agitation Last Admin: 04/18/21 13:07 Dose: 100 mcg/hr, 10 mls/hr Documented by: Dextrose/Sodium Chloride (Dextrose 5%-1/2 Ns) 1,000 mls @ 75 mls/hr IV Q13H TEO Last Admin: 04/18/21 05:49 Dose: Not Given Documented by: Piperacillin Sod/Tazobactam (Sod 4.5 gm/ Sodium Chloride) 100 mls @ 100 mls/hr IV Q8H TEO Last Admin: 04/18/21 08:21 Dose: 100 mls/hr Documented by: Vancomycin HCl 1 gm/ Sodium (Chloride) 250 mls @ 250 mls/hr IV Q24H TEO Last Admin: 04/17/21 20:30 Dose: 250 mls/hr Documented by: Propofol (Diprivan 100 Ml) 100 mls @ 2.218 mls/hr IV TITRATE TEO; Protocol Last Admin: 04/18/21 13:01 Dose: 40 mcg/kg/min, 17.745 mls/hr Documented by: Norepinephrine Bitartrate (Norepinephr-0.9% Nacl 4 Mg/250) 4 mg in 250 mls @ 7.5 mls/hr IV TITRATE TEO; Protocol Last Admin: 04/18/21 11:48 Dose: 14 mcg/min, 52.5 mls/hr Documented by: Insulin Regular in 0.9 % NACL (Myxredlin In Ns 100 Unit/100 Ml) 100 mls @ 12 mls/hr IV TITRATE TEO; Protocol Last Admin: 04/18/21 13:08 Dose: 1.5 mls/hr, 1.5 mls/hr Documented by: Insulin Aspart (Insulin Aspart 100 Units/Ml 3 Ml Pen) 0 unit SUBCUT Q6H TEO; Protocol Last Admin: 04/18/21 13:03 Dose: Not Given Documented by: Methylprednisolone Sodium Succinate (Methylprednisolone Sodium Succinate 125 Mg/2 Ml Sdv) 60 mg IVPUSH Q8H TEO Last Admin: 04/18/21 08:20 Dose: 60 mg Documented by: Morphine Sulfate (Morphine 2 Mg/Ml Syringe) 2 mg IVPUSH Q2H PRN PRN Reason: Pain (severe 7-10) Stop: 04/18/21 14:56 Pantoprazole Sodium (Pantoprazole 40 Mg/10 Ml Syringe) 40 mg IVPUSH Q24H TEO Last Admin: 04/17/21 21:16 Dose: 40 mg Documented by: Vancomycin HCl (Pharmacy To Dose - Vancomycin) 1 dose .XX ASDIRECTED TEO Discontinued Medications Albuterol (Albuterol 0.083% 2.5 Mg/3 Ml Neb Soln) 2.5 mg NEB ONETIME ONE Stop: 04/17/21 11:02 Last Admin: 04/17/21 12:17 Dose: 2.5 mg Documented by: Albuterol (Albuterol 0.083% 2.5 Mg/3 Ml Neb Soln) 2.5 mg NEB Q2H PRN PRN Reason: Shortness Of Breath/wheezing Albuterol/Ipratropium (Albuterol/Ipratropium 3.0-0.5 Mg/3 Ml Neb Soln) 3 ml NEB ONETIME ONE Stop: 04/17/21 04:43 Last Admin: 04/17/21 05:09 Dose: 3 ml Documented by: Albuterol/Ipratropium (Albuterol/Ipratropium 3.0-0.5 Mg/3 Ml Neb Soln) Confirm Administered Dose 3 ml .ROUTE .STK-MED ONE Stop: 04/17/21 11:02 Last Admin: 04/17/21 12:17 Dose: Not Given Documented by: Albuterol/Ipratropium (Albuterol/Ipratropium 3.0-0.5 Mg/3 Ml Neb Soln) 3 ml NEB ONETIME ONE Stop: 04/17/21 11:10 Last Admin: 04/17/21 11:10 Dose: 3 ml Documented by: Diltiazem HCl (Diltiazem 120 Mg Cap.Cd) 120 mg PO ONETIME ONE Stop: 04/17/21 08:21 Last Admin: 04/17/21 08:37 Dose: Not Given Documented by: Furosemide (Furosemide 20 Mg/2 Ml Vial) 20 mg IVPUSH ONETIME ONE Stop: 04/17/21 22:16 Last Admin: 04/17/21 23:57 Dose: 20 mg Documented by: Cefepime HCl 2 gm/ Premix 50 mls @ 100 mls/hr IV ONETIME ONE Stop: 04/17/21 05:23 Last Admin: 04/17/21 05:09 Dose: 100 mls/hr Documented by: Sodium Chloride (Normal Saline) 1,000 mls @ 999 mls/hr IV .Bolus ONE Stop: 04/17/21 06:47 Last Admin: 04/17/21 05:53 Dose: 999 mls/hr Documented by: Levothyroxine Sodium 66 mcg/ (Sodium Chloride) 3.3 mls @ 198 mls/hr IV ONETIME ONE Stop: 04/17/21 09:16 Last Admin: 04/17/21 09:10 Dose: 198 mls/hr Documented by: Magnesium Sulfate (Magnesium Sulfate In Water 2 Gm/50 Ml) 25 mls @ 25 mls/hr IV ONETIME ONE Stop: 04/17/21 12:44 Last Admin: 04/17/21 12:04 Dose: 25 mls/hr Documented by: Fentanyl Citrate (Fentanyl 2500 Mcg In Ns 250 Ml (10 Mcg/Ml)) Confirm Administered Dose 250 mls @ as directed .ROUTE .STK-MED ONE Stop: 04/17/21 12:04 Last Admin: 04/17/21 12:17 Dose: Not Given Documented by: Levofloxacin/Dextrose 750 mg/ (Premix) 150 mls @ 100 mls/hr IV Q48H TEO Last Admin: 04/17/21 17:40 Dose: 100 mls/hr Documented by: Propofol (Diprivan 100 Ml) Confirm Administered Dose 100 mls @ as directed .ROUTE .STK-MED ONE Stop: 04/17/21 16:07 Last Admin: 04/17/21 19:30 Dose: Not Given Documented by: Insulin Aspart (Insulin Aspart 100 Units/Ml 3 Ml Pen) 10 unit SUBCUT ONETIME ONE Stop: 04/17/21 18:01 Last Admin: 04/17/21 17:47 Dose: 10 units Documented by: Insulin Glargine (Insulin Glargine,Human Rec. Analog 100 Units/Ml 3 Ml Pen) 15 units SUBCUT ONETIME ONE Stop: 04/17/21 18:01 Last Admin: 04/17/21 17:44 Dose: 15 units Documented by: Insulin Human Regular (Insulin Regular, Human 100 Units/Ml 10 Ml Vial) 5 unit IVPUSH ONETIME ONE; Protocol Stop: 04/17/21 06:20 Last Admin: 04/17/21 06:26 Dose: 5 units Documented by: Iopamidol (Iopamidol 755 Mg/Ml 500 Ml Multipack Bottle) 50 ml IVPUSH ONETIME STA Stop: 04/17/21 06:32 Last Admin: 04/17/21 06:31 Dose: 50 ml Documented by: Levothyroxine Sodium (Levothyroxine 112 Mcg Tab) 112 mcg PO ONETIME ONE Stop: 04/17/21 08:22 Last Admin: 04/17/21 08:37 Dose: Not Given Documented by: Lorazepam (Lorazepam 2 Mg/Ml Sdv) 0.5 mg IVPUSH ONETIME ONE Stop: 04/17/21 04:20 Last Admin: 04/17/21 04:38 Dose: 0.5 mg Documented by: Lorazepam (Lorazepam 2 Mg/Ml Sdv) 0.5 mg IVPUSH ONETIME ONE Stop: 04/17/21 05:47 Last Admin: 04/17/21 05:52 Dose: 0.5 mg Documented by: Methylprednisolone Sodium Succinate (Methylprednisolone Sodium Succinate 125 Mg/2 Ml Sdv) 125 mg IVPUSH ONETIME ONE Stop: 04/17/21 04:43 Last Admin: 04/17/21 05:09 Dose: 125 mg Documented by: Midazolam HCl (Midazolam 1 Mg/Ml 2 Ml Sdv) 1 mg IVPUSH ONETIME ONE Stop: 04/17/21 11:01 Last Admin: 04/17/21 11:09 Dose: 1 mg Documented by: Midazolam HCl (Midazolam 1 Mg/Ml 2 Ml Sdv) Confirm Administered Dose 2 mg .ROUTE .STK-MED ONE Stop: 04/17/21 11:02 Last Admin: 04/17/21 12:17 Dose: Not Given Documented by:
[2021-04-18] MEDS: fentaNYL/Normal Saline 2,500 MCG in Premix Bag 1 BAG IV PRN (13:07)
== END 2021-04-18 15:00 | DRG 871 ==
LOC: MW.ED 04:18 → MW.ICU 15:55
PROVIDERS: ADMIT Pediatrics; ATTEND Pediatrics
PROC: 02HV33Z Insertion of Infusion Device into Superior Vena Cava, Percutaneous Approach (ICD-10-PCS; principal; 2021-04-17)
PROC: 5A1935Z Respiratory Ventilation, Less than 24 Consecutive Hours (ICD-10-PCS; 2021-04-17)
DX: A41.9 Sepsis, unspecified organism (principal); J18.9 Pneumonia, unspecified organism; H54.7 Unspecified visual loss; H91.90 Unspecified hearing loss, unspecified ear; R65.21 Severe sepsis with septic shock; J96.21 Acute and chronic respiratory failure with hypoxia; E78.00 Pure hypercholesterolemia, unspecified; U07.1 COVID-19; G47.30 Sleep apnea, unspecified; J12.82 Pneumonia due to coronavirus disease 2019; M19.90 Unspecified osteoarthritis, unspecified site; J44.0 Chronic obstructive pulmonary disease with (acute) lower respiratory infection; I25.10 Atherosclerotic heart disease of native coronary artery without angina pectoris; Z79.890 Hormone replacement therapy; E78.5 Hyperlipidemia, unspecified; I10 Essential (primary) hypertension; G47.33 Obstructive sleep apnea (adult) (pediatric); E11.9 Type 2 diabetes mellitus without complications; E03.9 Hypothyroidism, unspecified; Z79.4 Long term (current) use of insulin; Z95.0 Presence of cardiac pacemaker; Z86.16 Personal history of COVID-19; Z79.899 Other long term (current) drug therapy; Z98.42 Cataract extraction status, left eye; Z98.41 Cataract extraction status, right eye; Z98.890 Other specified postprocedural states; Z90.710 Acquired absence of both cervix and uterus; Z90.722 Acquired absence of ovaries, bilateral; Z90.89 Acquired absence of other organs
CPT/HCPCS: 0240U; 36415; 36600; 71045; 71275; 80053; 81001; 82009; 82803; 82947; 83605; 83735; 83880; 84484; 85025; 85379; 85610; 85730; 86140; 87040; 93005; 94003; 94640; 94660; 31500; 36556; 36620; 93010; 96365; 96367; 96375; 96376; 99100; 99285; 99285-25; C9113; J0692; J1650; J1815; J1815-GY; J1940; J1956; J2060; J2250; J2543; J2704; J2930; J3370; J3475; J7030; J7042; J7050; J7620-GY; Q9967